=== PATIENT | male | born 1955 | race African-American/Black ===

== ENCOUNTER 2017-04-29 19:07 | Emergency (ER) | END 2017-04-29 22:35 | disposition home or self-care (01) | DX: K92.2 Gastrointestinal hemorrhage, unspecified (principal); F10.10 Alcohol abuse, uncomplicated; F17.210 Nicotine dependence, cigarettes, uncomplicated | CPT/HCPCS: 36415; 80053; 81001; 83690; 84484; 85025; 96374; 96375; J2270; J2405; J7030; Z7502; Z7610 ==

== ENCOUNTER 2017-06-25 05:21 | Inpatient (IN) | payer OTHER ==
[~2017-06-25] VITALS: Ht 175.3 cm; Wt 68.0 kg
[2017-06-25] VITALS (11 sets, daily range): BP systolic 138–170; BP diastolic 74–101; PULSE 69–122; RESP 18–19; TEMP 98.3; Ht 175.3 cm; Wt 68.0 kg
[~2017-06-25 05:21] MED LIST: GABA100C14 PO; OMEP20CA16 PO
[2017-06-25] MEDS ORDERED: niCARdipine-NS 0.1MG/ML DRIP 200 ML IV SCH (06:00)
[2017-06-25] MEDS ORDERED: LEVALBUTEROL (NEB) 1.25 MG/0.5 ML AMP HHN ONE (06:00)
[2017-06-25] MEDS ORDERED: IPRATROPIUM (NEB) 0.5 MG/2.5 ML AMP HHN ONE (06:00)
[2017-06-25 06:12] LABS: ABNORMAL IP MESSAGE 1; BASOPHIL # 0.1 10^3/ul (0.0-0.1); BASOPHILS % 0.4 % (0.0-2.0); EOSINOPHILS # 0.1 10^3/ul (0.0-0.5); EOSINOPHILS % 1.1 % (0.0-7.0); HEMOGLOBIN 7.7 g/dl (14.0-18.0); LYMPHOCYTES # 3.9 10^3/ul (0.8-2.9); LYMPHOCYTES % 30.3 % (15.0-51.0); MEAN CORPUSCULAR HEMOGLOBIN 21.5 pg (29.0-33.0); MEAN CORPUSCULAR HGB CONC 28.5 g/dl (32.0-37.0); MEAN CORPUSCULAR VOLUME 75.4 fl (82.0-101.0); MEAN PLATELET VOLUME 9.7 fl (7.4-10.4); MONOCYTE # 1.3 10^3/ul (0.3-0.9); NEUTROPHIL # 7.4 10^3/ul (1.6-7.5); NEUTROPHILS % 57.5 % (39.0-77.0); PLATELET COUNT 455 10^3/UL (140-415); POSITIVE DIFF @See below; RED BLOOD COUNT 3.58 10^6/ul (4.70-6.10); RED CELL DISTRIBUTION WIDTH 21.6 % (11.5-14.5); WHITE BLOOD COUNT 12.8 10^3/ul (4.8-10.8)
[2017-06-25] MEDS ORDERED: FUROSEMIDE 40 MG INJ ONE (06:12)
[2017-06-25] MEDS ORDERED: FUROSEMIDE 40 MG INJ IV STA (06:12)
[2017-06-25] MEDS ORDERED: NITROGLYCERIN 50 MG/D5W (PMX) 250 ML IV STA (06:12)
[2017-06-25] MEDS ORDERED: NITROGLYCERIN 50 MG/D5W (PMX) 250 ML ONE (06:12)
[2017-06-25 06:24] LABS: INR 1.17; PT RATIO 1.2
[2017-06-25 06:25] LABS: PARTIAL THROMBOPLASTIN TIME 36.1 Sec (25.0-35.0)
[2017-06-25 06:26] LABS: ALBUMIN 3.2 g/dl (3.3-4.9); ALBUMIN/GLOBULIN RATIO 0.8; CALCIUM 8.5 mg/dl (8.4-10.2); CREATININE 1.02 mg/dl (0.61-1.24); POTASSIUM 3.8 mmol/L (3.5-5.1); TOTAL PROTEIN 7.2 g/dl (6.1-8.1)
[2017-06-25 06:37] LABS: TROPONIN-I 0.065 ng/ml (0.00-0.12)
[2017-06-25 06:40] LABS: AADO2 Arterial 453.1 mmHg (7.0-24.0); Allen Test ACCEPTAB; Arterial Base Excess -7.6 mmol/L (-3.0-3); Arterial COHb 1.5 % (0.0-3.0); Arterial Fraction of Oxyhgb 97.4 % (93.0-99.0); Arterial HCO3 19.2 mmol/L (22.0-26.0); Arterial MetHb 0.5 % (0.0-1.5); Arterial Total Hemglobin 8.6 g/dl (12.0-18.0); Blood Gas IEPAP 20/8; Blood Gas PS 12; MODE MASK - BIPAP
[2017-06-25] MEDS ORDERED: SOD CHLORIDE 0.9% 250 ML IV ONE (06:50)
--- NOTE | 2017-06-25 06:56 | RADRPT ---
PROCEDURE: Chest. CLINICAL INDICATION: Chest pain. TECHNIQUE: Single frontal view of the chest was obtained. COMPARISON: 04/27/2016. FINDINGS: The cardiac silhouette is enlarged. The aortic arch is calcified. There are hazy and patchy opaciti es bilaterally. There is a small left pleural effusion. There is no pneumothorax. IMPRESSION: Bilateral hazy and patchy opacities could represent pulmonary edema and/or multifocal pneumonia. Moderate cardiomegaly and aortic atherosclerosis. Small left-sided pleural effusion. .Tommie Holly MD, MD Date Time Electronically viewed and signed by .Tommie Holly MD, MD on 06/25/2017 06:55 .T/
[2017-06-25] MEDS ORDERED: ASPIRIN 81 MG TAB PO ONE (07:00)
--- NOTE | 2017-06-25 08:09 | ERA ---
ER Documentation Chief Complaint Date/Time DATE: 06/25/17 TIME: 08:09 Chief Complaint bib ra 90 from home for cp and sob x 3 days HPI Patient is a 62-year-old male with COPD who presents with shortness of breath. Please note the history and physical exam is limited secondary to the patient's severe shortness of breath at this time and being on BiPAP therapy. The patient was brought in by ambulance. He had a low oxygen saturation and extremely high blood pressure with a systolic blood pressure of 270. He was short of breath and diaphoretic. He had bilateral lower extremity edema. This is gotten worse over the past 3 days. Upon review of old medical records this is the patient's third visit since 2016. ROS All systems reviewed and are negative except as per history of present illness. Medications Home Meds Active Scripts Omeprazole* (Omeprazole*) 20 Mg Capsule.dr, 20 MG PO BID, #20 Prov:TJ ALEXANDER DO 04/29/17 Reported Medications Gabapentin* (Gabapentin*) 100 Mg Capsule, 200 MG PO NEEDED, #180 CAP 04/29/17 Allergies Allergies: Coded Allergies: No Known Allergy (Unverified , 04/29/17) PMhx/Soc History of Surgery: No Anesthesia Reaction: No Hx Neurological Disorder: Yes (epilepsy - last incident 2013, peripheral neuropathy) Hx Respiratory Disorders: No Hx Cardiac Disorders: No Hx Psychiatric Problems: Yes (mild depression) Hx Miscellaneous Medical Probl: No Hx Alcohol Use: Yes (beer - 12 cans/day) Hx Substance Use: Yes (QUIT IN 1999) Hx Tobacco Use: Yes (1 pack per day) Smoking Status: Current every day smoker FmHx Unable to obtain Physical Exam Vitals Vital Signs Date Time Temp Pulse Resp B/P Pulse Ox O2 Delivery O2 Flow Rate FiO2 06/25/17 07:41 91 100 60 06/25/17 07:21 98.3 89 18 165/92 100 BIPAP 06/25/17 06:19 98.6 120 33 226/118 100 BIPAP 06/25/17 06:15 121 100 100 06/25/17 06:04 96.8 124 34 178/134 100 BIPAP 06/25/17 05:49 96.8 123 29 259/151 83 06/25/17 05:30 126 100 100 Physical Exam Const: Severe distress Head: Atraumatic Eyes: Normal Conjunctiva ENT: Normal External Ears, Nose and Mouth. Neck: Full range of motion..~ No meningismus. Resp: Decreased breath sounds bilaterally Cardio: Tachycardic rate without murmur Abd: Soft, non tender, non distended. Normal bowel sounds Skin: Diaphoresis Back: No midline or flank tenderness Ext: No cyanosis, or edema Neur: Awake but confused and distressed at this time Result Diagram: 06/25/17 0549 06/25/17 0549 Results 24 hrs Laboratory Tests Test 06/25/17 05:27 06/25/17 05:32 06/25/17 05:41 06/25/17 05:49 Blood Gas Specimen Source Blood arterial Arterial Blood Date Drawn 06/25/2017 6:30:47 AM Arterial Blood pH (Temp corrected) 7.248 Arterial Blood pCO2 (Temp correct) 45.0mmhg Arterial Blood pO2 (Temp corrected) 214.9mmHG Arterial Blood HCO3 19.2mmol/L Arterial Blood Base Excess -7.6mmol/L Arterial Blood Oxygen Saturation 99.4mmHG Jamir Test ACCEPTAB Arterial Blood Gas Puncture Site Right Radial Arterial Blood Carboxyhemoglobin 1.5% Arterial Blood Methemoglobin 0.5% Blood Gas A-a O2 Differential 453.1mmHg Oxyhemoglobin Percent 97.4% Total Hemoglobin 8.6g/dl Blood Gas Temperature 37.0C Blood Gas Respiration Rate 20.0 Blood Gas Actual Respiration Rate 33 Blood Gas Modality MASK - BIPAP FiO2 100.0% Blood Gas Inspiratory Time 0.60 Blood Gas Pressure Support 12 Blood Gas IPAP/EPAP Ratio 20/8 Blood Gas Critical Value Read Back DR. CAMPOS Blood Gas Notified Whom Jaswinder Blood Gas Notified Time 06/25/2017 6:39:53 AM Ethyl Alcohol Level < 10.0mg/dl Lactic Acid Level 7.1mmol/L White Blood Count 12.810^3/ul Red Blood Count 3.5810^6/ul Hemoglobin 7.7g/dl Hematocrit 27.0% Mean Corpuscular Volume 75.4fl Mean Corpuscular Hemoglobin 21.5pg Mean Corpuscular Hemoglobin Concent 28.5g/dl Red Cell Distribution Width 21.6% Platelet Count 42637^3/UL Mean Platelet Volume 9.7fl Neutrophils % 57.5% Lymphocytes % 30.3% Monocytes % 10.0% Eosinophils % 1.1% Basophils % 0.4% Nucleated Red Blood Cells % 0.0/100WBC Neutrophils # 7.410^3/ul Lymphocytes # 3.910^3/ul Monocytes # 1.310^3/ul Eosinophils # 0.110^3/ul Basophils # 0.110^3/ul Nucleated Red Blood Cells # 0.010^3/ul Prothrombin Time 15.0Sec Prothrombin Time Ratio 1.2 INR International Normalized Ratio 1.17 Activated Partial Thromboplast Time 36.1Sec Sodium Level 141mmol/L Potassium Level 3.8mmol/L Chloride Level 108mmol/L Carbon Dioxide Level 19mmol/L Anion Gap 18 Blood Urea Nitrogen 2mg/dl Creatinine 1.02mg/dl Glucose Level 168mg/dl Calcium Level 8.5mg/dl Total Bilirubin 0.0mg/dl Direct Bilirubin 0.00mg/dl Indirect Bilirubin 0.0mg/dl Aspartate Amino Transf (AST/SGOT) 64IU/L Alanine Aminotransferase (ALT/SGPT) 26IU/L Alkaline Phosphatase 175IU/L Troponin I 0.065ng/ml Total Protein 7.2g/dl Albumin 3.2g/dl Globulin 4.00g/dl Albumin/Globulin Ratio 0.80 Current Medications Medications (Trade) Dose Ordered Sig/Renee Route PRN Reason Start Time Stop Time Status Last Admin Dose Admin Levalbuterol (Xopenex Neb) 1.25 mg ONCE ONCE [facility] 06/25/17 06:00 06/25/17 06:01 DC 06/25/17 05:55 Ipratropium Turner 0.5 mg 0.5 mg ONCE ONCE [facility] 06/25/17 06:00 06/25/17 06:01 DC 06/25/17 05:55 Nicardipine HCl 200 ml @ 50 mls/hr TITRATE IV 06/25/17 06:00 06/25/17 06:14 DC Nitroglycerin/ Dextrose (Nitroglycerin 50 Mg/D5W (Pmx)) 250 ml @ 6 mls/hr ONCE STAT IV 06/25/17 06:12 06/26/17 23:51 06/25/17 06:21 Furosemide 40 mg 40 mg ONCE STAT IV 06/25/17 06:12 06/25/17 06:13 DC 06/25/17 06:22 Nitroglycerin/ Dextrose (Nitroglycerin 50 Mg/D5W (Pmx)) 250 ml @ ud STK-MED ONCE .ROUTE 06/25/17 06:12 06/25/17 06:13 DC Furosemide (Lasix) 40 mg STK-MED ONCE .ROUTE 06/25/17 06:12 06/25/17 06:13 DC Aspirin 162 mg 162 mg ONCE ONCE PO 06/25/17 07:00 06/25/17 07:01 DC Sodium Chloride (NS) 250 ml @ 0 mls/hr Q0M ONCE IV 06/25/17 06:50 06/25/17 06:52 DC Procedures/MDM EKG read by me: Rate/Rhythm: Sinus arrhythmia with tachycardia Intervals: Normal Impression: Sinus arrhythmia with tachycardia and flipped T waves Chest X-ray 1V Interpreted by me: Soft Tissue: No acute abnormalities Bones: No acute abnormalities Mediastinum/Cardiac Silhouette/Lungs: Pulmonary edema versus ARDS Patient is a 62-year-old male who presents in acute respiratory failure. The patient was placed on BiPAP immediately upon arrival but was not doing well and I did consider intubation. He was initially on a Cardene drip for his blood pressure but I did stop the Cardene drip and ordered a nitroglycerin drip and Lasix IV as I felt this was acute congestive heart failure with pulmonary edema. At this point I doubt pneumonia, pneumothorax, or pulmonary embolism. There is a potential for acute coronary syndrome and the patient was given aspirin. The patient improved with BiPAP therapy, nitroglycerin drip, and Lasix. We were able to avoid intubation but he is still very sick. I spoke with Dr. Penn as the patient has regal insurance for admission to the intensive care unit. We will attempt to wean off the nitro drip and BiPAP therapy and if this can be done the patient will be downgraded to telemetry. The patient has an elevated lactic acid of 7.1 which I believe is from hypoxia and poor perfusion and not related to sepsis or septic shock. The patient has acute anemia with a hemoglobin of 7.7 and initially I ordered 2 units of packed red blood cells but Dr. Penn asked me to hold off given the pulmonary edema which I think is reasonable at this time. Critical Care: Time: 35 minutes excluding all billable procedures. Treatments/Evaluations: Close monitoring and treatment of unstable vital signs, cardiorespiratory, and neurologic status, while maintaining tight balance of fluid, respiratory, and cardiac interventions. Departure Diagnosis: Primary Impression: Hypoxia Additional Impressions: Shortness of breath Respiratory failure Qualified Code: J96.01 - Acute respiratory failure with hypoxia Acute CHF Qualified Code: I50.9 - Acute congestive heart failure, unspecified congestive heart failure type Hypertension Qualified Code: I10 - Essential hypertension Lactic acidosis Condition: Critical STNOEY CAMPOS MD Jun 25, 2017 08:09
[2017-06-25] MEDS ORDERED: NITROGLYCERIN 2% 1 GM OINT PKT TD STA (08:25)
[2017-06-25] MEDS ORDERED: DOCUSATE SODIUM 100 MG CAP PO PRN (09:30)
[2017-06-25] MEDS ORDERED: ONDANSETRON 4 MG INJ IV PRN (09:30)
[2017-06-25] MEDS ORDERED: BISACODYL 10 MG SUPP PR PRN (09:30)
[2017-06-25] MEDS ORDERED: MAGNESIUM HYDROXIDE 30ML CUP PO PRN (09:30)
[2017-06-25] MEDS ORDERED: HYDROCODONE/APAP (5/325) TAB PO PRN (09:30)
[2017-06-25] MEDS ORDERED: NACL 0.9% 3 ML SYG IV SCH (09:30)
[2017-06-25] MEDS ORDERED: LABETALOL HCL 20MG INJ IV ONE (10:30)
[2017-06-25] MEDS: METOPROLOL 25 MG TAB PO SCH ×2 (10:50→23:41)
[2017-06-25] MEDS: ISOSORBIDE DINITRATE 10 MG TAB PO SCH ×3 (10:50→23:41)
[2017-06-25] MEDS: PANTOPRAZOLE (EC) 40 MG TAB PO SCH ×2 (10:52→17:20)
[2017-06-25] MEDS: SUCRALFATE 1 GM TAB PO SCH ×3 (12:32→23:41)
[2017-06-25 12:52] LABS: ABNORMAL IP MESSAGE 1; BASOPHILS % 0.1 % (0.0-2.0); HEMATOCRIT 22.6 % (42.0-52.0); LYMPHOCYTES # 0.7 10^3/ul (0.8-2.9); LYMPHOCYTES % 4.8 % (15.0-51.0); MEAN CORPUSCULAR HEMOGLOBIN 21.3 pg (29.0-33.0); MEAN CORPUSCULAR HGB CONC 30.1 g/dl (32.0-37.0); MEAN CORPUSCULAR VOLUME 70.8 fl (82.0-101.0); MEAN PLATELET VOLUME 9.4 fl (7.4-10.4); MONOCYTES % 6.7 % (0.0-11.0); NEUTROPHIL # 12.9 10^3/ul (1.6-7.5); NEUTROPHILS % 87.9 % (39.0-77.0); PLATELET COUNT 379 10^3/UL (140-415); POSITIVE DIFF @See below; RED BLOOD COUNT 3.19 10^6/ul (4.70-6.10); RED CELL DISTRIBUTION WIDTH 21.1 % (11.5-14.5); WHITE BLOOD COUNT 14.7 10^3/ul (4.8-10.8)
[2017-06-25 13:11] LABS: TROPONIN-I 0.092 ng/ml (0.00-0.12)
[2017-06-25 13:12] LABS: CK-MB 0.68 ng/ml (0.0-2.4); HEMOGLOBIN 6.8 g/dl (14.0-18.0)
[2017-06-25 13:13] LABS: PATH REVIEW? YES
[2017-06-25] MEDS: hydrALAzine 20 MG INJ IV PRN (13:40)
--- NOTE | 2017-06-25 13:49 | HP ---
Date/Time of Note Date/Time of Note DATE: 06/25/17 TIME: 12:05 Assessment/Plan VTE Prophylaxis VTE Prophylaxis Intervention: SCD's Lines/Catheters Urinary Cath still in place: No Assessment/Plan Assessment/Plan 62-year-old male with: 1. Pulmonary edema, CHF exacerbation with respiratory distress, echocardiogram pending to evaluate ejection fraction. Patient received Lasix with improved respiratory status. Trend cardiac enzymes, check BNP, continue diuresis. Repeat chest x-ray in a.m. Original EKG showing sinus tachycardia with PACs, on telemetry currently sinus rhythm after treatment of hypertension and respiratory distress. 2. Microcytic chronic anemia, acute exacerbation, questionable ongoing slow GI bleed or intermittent upper GI bleed versus lower GI bleed. Patient did have 2 EGDs done few months ago with findings of gastritis for which she has been treated as he was H pylori positive. He was also advised to stop alcohol use but that he has not done so so far. Hemoglobin down to 6.9. Transfuse 2 units of packed red blood cells, will also check fecal occult blood illness the patient is having gross bleeding. Repeat CBC in a.m. Protonix treatment dose 40 mg p.o. twice daily along with Carafate for known gastritis and gastric ulcers 3. Hypertension: Uncontrolled and untreated. Patient has been started on beta- blockers along with Isordil. Follow-up 2D echocardiogram. 4. Reported seizure disorder: Monitor, patient has been off medication for 2 years. 5. Tobacco use: We will offer nicotine patch, he has been advised to quit 6. Alcohol abuse: Counseled to quit, patient denies any history of alcohol withdrawal, he claims that he can go days without drinking. Will monitor closely, Ativan as needed. If shows signs of alcohol withdrawal we will start him on Librium. We will also have him on multivitamin, folate and thiamine. 7. Gastritis, gastric ulcers on previous EGD: Continue Protonix and Carafate. Prophylaxis: SCDs to lower extremity for DVT prophylaxis, Protonix known gastritis Disposition: Admit to telemetry, blood pressure control, diuresis, blood transfusion, rule out acute coronary syndrome, 2D echocardiogram. HPI/ROS Admit Date/Time Admit Date/Time Jun 25, 2017 at 07:38 Hx of Present Illness Chief complaint: Shortness of breath History of presenting illness: This is 62-year-old male with history of alcohol use, tobacco use, previous episode of upper GI bleeding related to alcohol use and gastritis, known chronic anemia, presented to the emergency department with complaint of shortness of breath worsening over the past 2 months. Patient reports that he has been seen in this emergency department approximately 2 months ago for reported bright red blood per rectum, hemoglobin was stable, he was still drinking heavily he was advised to decrease his alcohol consumption and follow-up. Since then he has not seen any physician. He reports that around the same time he started having shortness of breath, mostly dyspnea on exertion, decreased exercise tolerance, some orthopnea, he has remained hypertensive. Patient does have hypertension, untreated, noncompliant with medical follow-up. He claims that he did not take any medications because they were not prescribed but does not seem like he even seek medical assistance. 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 His blood pressure improve over a few hours along with his respiratory status. He is down to 4 L nasal cannula with better control of blood pressure, off nitro drip with Nitropaste in place. He does have anemia, hemoglobin was 7.7 in the emergency department, repeat hemoglobin is 6.9, he will be receiving 2 units of packed red blood cells, will hold off of aspirin. Resume Carafate and Protonix. Continue to monitor. If further drop of his hemoglobin GI will be consulted for repeat endoscopy. Patient does have known gastritis and ulcerations. He was treated for H pylori on his last admission in 2016 according to the notes and discharge summaries. ROS Constitutional: improved Respiratory: other (Dyspnea on exertion and orthopnea), shortness of breath Cardiovascular: edema (Bilateral lower extremities), orthopenea, paroxysmal nocturnal dyspnea Gastrointestinal: no complaints Genitourinary: no complaints Musculoskeletal: no complaints Skin: no complaints Neurologic: no complaints Endocrine: no complaints Psychological: no complaints PMH/Family/Social Past Medical History Previously diagnosed gastritis, gastric ulcers and H pylori gastritis, status post 2 EGDs in April 2016 Hypertension, uncontrolled and untreated Chronic anemia Reported seizure disorder but no medications for the past 2 years and no seizures Past Surgical History Status post EGD [address] Salazar, here at [facility] Past Surgical Hx: no surgical history Social History Alcohol Use: other (2-5 beers a day, last beer was yesterday since age 21 at least) Smoking Status: Current every day smoker (1/2 pack per day for the past 40 yrs at least ) Drug Use: cocaine (remote use ) Exam/Review of Systems Vital Signs Vitals Vital Signs Date Time Temp Pulse Resp B/P Pulse Ox O2 Delivery O2 Flow Rate FiO2 06/25/17 12:03 97.3 70 18 170/101 96 06/25/17 10:58 Nasal Cannula 4.0 06/25/17 07:41 60 Exam Constitutional: alert, oriented, well developed Respiratory: diminished breath sounds (bases bilaterally ), normal air movement Cardiovascular: nl pulses, regular rate and rhythm Gastrointestinal: non-tender, soft Musculoskeletal: swelling (bilateral LE ) Extremities: edema (+ 2 lower ext bilaterally ), normal pulses, other (no clubbing or cyanosis ) Neurological: VERIFICATION REP II-XII intact, nl mental status, nl speech, nl strength, other (but decreased exercise tolerance ) Labs Result Diagram: 06/25/1749 06/25/17 0549 Medications Medications Current Medications Sucralfate (Carafate) 1 gm Q6 PO ; Start 06/25/17 at 12:00 Pantoprazole (Protonix Tab) 40 mg BID@06,18 PO Last administered on 06/25/17t 10:52; Admin Dose 40 MG; Start 06/25/17 at 09:30 Ondansetron HCl (Zofran Inj) 4 mg Q6H PRN IV NAUSEA AND/OR VOMITING; Start at 09:30 Nitroglycerin (Nitroglycerin (Sl Tab) 0.4 Mg) 1 tab Q5M PRN SL CHEST PAIN; Start 06/25/17 at 09:30 Acetaminophen (Tylenol Tab) 650 mg Q6H PRN PO PAIN LEVEL 1-3 OR FEVER; Start 06/25/17 at 09:30 Acetaminophen/ Hydrocodone Bitart ([place] (5/325)) 1 tab Q6H PRN PO PAIN LEVEL 4 -6; Start 06/25/17 at 09:30 Morphine Sulfate (morphine) 2 mg Q4H PRN IV PAIN LEVEL 7-10; Start 06/25/17 at 09:30 Docusate Sodium (Colace) 100 mg Q12H PRN PO CONSTIPATION; Start 06/25/17 at 09 :30 Magnesium Hydroxide (Milk Of Mag) 30 ml DAILY PRN PO CONSTIPATION; Start 06/25 at 09:30 Bisacodyl (Dulcolax Supp) [address] CONSTIPATION; Start 06/25/17 at 09:30 Metoprolol Tartrate (Lopressor) 25 mg BID PO Last administered on 06/25/17 10 :50; Admin Dose 25 MG; Start 06/25/17 at 09:30 Isosorbide Dinitrate (Isordil) 10 mg TID PO Last administered on 06/25/17 10: 50; Admin Dose 10 MG; Start 06/25/17 at 09:30 Hydralazine HCl (Apresoline) 10 mg Q8 PRN IV ELEVATED BLOOD PRESSURE; Start at 12:00 Procedures Procedures PROCEDURE: Chest. CLINICAL INDICATION: Chest pain. TECHNIQUE: Single frontal view of the chest was obtained. COMPARISON: 04/27/2016. FINDINGS: The cardiac silhouette is enlarged. The aortic arch is calcified. There are hazy and patchy opacities bilaterally. There is a small left pleural effusion. There is no pneumothorax. IMPRESSION: Bilateral hazy and patchy opacities could represent pulmonary edema and/or multifocal pneumonia. Moderate cardiomegaly and aortic atherosclerosis. Small left-sided pleural effusion. .Tommie Holly MD, Date Time Electronically viewed and signed by .Tommie Holly MD, MD on 06/25/2017 06:55 EKG on admission with sinus tachycardia heart rate of 123 with PACs, no acute findings. ASHISH US Jun 25, 2017 12:15
[2017-06-25] MEDS: FOLIC ACID 1 MG TAB PO SCH (14:05)
[2017-06-25] MEDS: MULTIVITAMINS THERAPEUTIC TAB PO SCH (14:05)
[2017-06-25 15:29] LABS: IRON 23 ug/dl (35-150)
[2017-06-25 15:39] LABS: TOTAL IRON BINDING CAPACITY 308 ug/dl (241-421)
[2017-06-25] MEDS: FUROSEMIDE 40 MG INJ IV SCH (17:20)
[2017-06-25] MEDS: NICOTINE (14 MG/24 HR) PATCH TRANSDERM SCH (17:20)
[2017-06-25] MEDS: THIAMINE 100 MG TAB PO SCH (17:58)
[2017-06-25 18:54] LABS: CK-MB 0.52 ng/ml (0.0-2.4); TROPONIN-I 0.144 ng/ml (0.00-0.12)
[2017-06-26] VITALS (13 sets, daily range): BP systolic 115–170; BP diastolic 73–93; PULSE 68–81; RESP 16–21
[2017-06-26] MEDS: hydrALAzine 20 MG INJ IV PRN ×2 (01:00→21:18)
[2017-06-26] MEDS: NITROGLYCERIN (SL) 0.4 MG TAB SL PRN ×3 (01:19→01:35)
[2017-06-26 01:55] LABS: CK-MB 0.39 ng/ml (0.0-2.4)
[2017-06-26 01:56] LABS: TROPONIN-I 0.168 ng/ml (0.00-0.12)
[2017-06-26] MEDS: FUROSEMIDE 40 MG INJ IV SCH ×2 (05:27→17:12)
[2017-06-26] MEDS: PANTOPRAZOLE (EC) 40 MG TAB PO SCH ×2 (05:28→17:12)
[2017-06-26] MEDS: SUCRALFATE 1 GM TAB PO SCH ×3 (05:28→17:12)
[2017-06-26 08:20] LABS: ABNORMAL IP MESSAGE 1; BASOPHILS % 0.2 % (0.0-2.0); EOSINOPHILS # 0.1 10^3/ul (0.0-0.5); EOSINOPHILS % 0.9 % (0.0-7.0); HEMATOCRIT 26.6 % (42.0-52.0); HEMOGLOBIN 8.2 g/dl (14.0-18.0); LYMPHOCYTES # 1.7 10^3/ul (0.8-2.9); LYMPHOCYTES % 16.2 % (15.0-51.0); MEAN CORPUSCULAR HEMOGLOBIN 22.5 pg (29.0-33.0); MEAN CORPUSCULAR HGB CONC 30.8 g/dl (32.0-37.0); MEAN CORPUSCULAR VOLUME 73.1 fl (82.0-101.0); MEAN PLATELET VOLUME 9.7 fl (7.4-10.4); MONOCYTE # 1.2 10^3/ul (0.3-0.9); MONOCYTES % 11.4 % (0.0-11.0); NEUTROPHIL # 7.3 10^3/ul (1.6-7.5); NEUTROPHILS % 70.6 % (39.0-77.0); PLATELET COUNT 333 10^3/UL (140-415); POSITIVE DIFF @See below; RED BLOOD COUNT 3.64 10^6/ul (4.70-6.10); RED CELL DISTRIBUTION WIDTH 23.6 % (11.5-14.5); WHITE BLOOD COUNT 10.3 10^3/ul (4.8-10.8)
--- NOTE | 2017-06-26 08:28 | PN ---
Date/Time of Note Date/Time of Note DATE: 06/26/17 TIME: 08:28 Assessment/Plan VTE Prophylaxis VTE Prophylaxis Intervention: SCD's Lines/Catheters IV [facility]ter [facility]from [facility] Urinary Cath still in place: No Assessment/Plan Assessment/Plan 62-year-old male with: 1. Pulmonary edema, CHF exacerbation with respiratory distress, echocardiogram pending to evaluate ejection fraction with cardiomyopathy. Improved respiratory status this morning Continue diuresis with Lasix. Slightly elevated cardiac enzymes, keep trending. BNP, continue diuresis. Repeat chest x-ray in a.m. Repeat EKG pending this morning along with 2D echocardiogram results. 2. Slightly elevated troponins, in setting of anemia, CHF exacerbation. Patient also had an episode of nonsustained V. tach 3 beats overnight. Follow- up on chemistry replete electrolytes as needed. EKG this morning pain. 2D echocardiogram to be read by cardiology. Cardiology consulted. Continue trending cardiac enzymes. 3. Microcytic chronic anemia, acute exacerbation, questionable ongoing slow GI bleed or intermittent upper GI bleed versus lower GI bleed. Patient did have 2 EGDs done few months ago with findings of gastritis for which he has been treated as he was H pylori positive. He was also advised to stop alcohol use but that he has not done so so far. Hemoglobin up to 8.2 after transfusion of 2 units packed red blood cell yesterday Hematochezia noted. Repeat H&H at 12 PM today with possible additional transfusion Continue Protonix treatment dose 40 mg p.o. twice daily along with Carafate for known gastritis and gastric ulcers GI consult 4. Hypertension: Uncontrolled and untreated. Patient has been started on beta- blockers along with Isordil. Follow-up 2D echocardiogram results 5. Reported seizure disorder: Monitor, patient has been off medication for 2 years. No seizures 6. Tobacco use: We will offer nicotine patch, he has been advised to quit 7. Alcohol abuse: Counseled to quit, patient denies any history of alcohol withdrawal, he claims that he can go days without drinking. Will monitor closely, Ativan as needed. If shows signs of alcohol withdrawal we will start him on Librium. On multivitamin, folate and thiamine. 8. Gastritis, gastric ulcers on previous EGD: Continue Protonix and Carafate. GI consult Prophylaxis: SCDs to lower extremity for DVT prophylaxis, Protonix known gastritis Disposition: Continue to monitor on telemetry, given positive troponins, patient to remain at [facility] with cardiology to evaluate. Blood pressure control, diuresis, blood transfusion. Subjective 24 Hr Interval Summary Free Text/Dictation Patient noted to have an episode of chest pain overnight, relieved with nitroglycerin 2. Also had 3 beats of V. tach. EKG pending this morning. Troponin slightly positive overnight. Status post 2 units of packed red blood cells with a hemoglobin up to 8.2. 2D echocardiogram pending. Cardiology consult ordered. Exam/Review of Systems Vital Signs Vitals Vital Signs Date Time Temp Pulse Resp B/P Pulse Ox O2 Delivery O2 Flow Rate FiO2 06/26/17 08:00 81 06/26/17 07:53 98.8 21 146/73 95 06/26/17 07:41 Nasal Cannula 2.0 06/25/17 07:41 60 Intake and Output 06/25/17 06/25/17 06/26/17 15:00 23:00 07:00 Intake Total 400 ml 750 ml Output Total 2000 ml 800 ml 550 ml Balance -2000 ml -400 ml 200 ml Exam Constitutional: alert, oriented, well developed Psych: no complaints Head: normocephalic ENMT: other (Poor dentition) Respiratory: diminished breath sounds (Bases bilaterally much improved), normal air movement Cardiovascular: nl pulses, regular rate and rhythm Gastrointestinal: non-tender, soft Musculoskeletal: nl extremities to inspection Extremities: normal pulses, other (No edema, clubbing or cyanosis) Neurological: DIABETES MANAGER II-XII intact, nl mental status, nl speech, nl strength Results Result Diagram: 06/26/17 0756 06/25/17 0549 Results 24 hrs Laboratory Tests Test 06/25/17 09:21 06/25/17 12:08 06/25/17 14:37 06/25/17 18:09 Lactic Acid Level 2.0 1.3 White Blood Count 14.7 H Red Blood Count 3.19 L Hemoglobin 6.8 *L Hematocrit 22.6 L Mean Corpuscular Volume 70.8 L Mean Corpuscular Hemoglobin 21.3 L Mean Corpuscular Hemoglobin Concent 30.1 L Red Cell Distribution Width 21.1 H Platelet Count 379 Mean Platelet Volume 9.4 Neutrophils % 87.9 H Lymphocytes % 4.8 L Monocytes % 6.7 Eosinophils % 0.0 Basophils % 0.1 Nucleated Red Blood Cells % 0.0 Neutrophils # 12.9 H Lymphocytes # 0.7 L Monocytes # 1.0 H Eosinophils # 0.0 Basophils # 0.0 Nucleated Red Blood Cells # 0.0 Pathologist Review (Hematology) YES Creatine Kinase 55 51 Creatine Kinase Index 1.2 1.0 Creatinine Kinase MB (Mass) 0.68 0.52 Troponin I 0.092 0.144 *H Iron Level 23 L Total Iron Binding Capacity 308 Percent Iron Saturation 7 L Ferritin 21.5 Thyroid Stimulating Hormone (TSH) 2.080 Free Thyroxine 1.55 Test 06/26/17 00:35 06/26/17 06:27 06/26/17 07:56 Creatine Kinase 46 Creatine Kinase Index 0.8 Creatinine Kinase MB (Mass) 0.39 Troponin I 0.168 *H Lab Scanned Report BLOOD TRANSFUSION White Blood Count 10.3 # Red Blood Count 3.64 L Hemoglobin 8.2 #L Hematocrit 26.6 L Mean Corpuscular Volume 73.1 L Mean Corpuscular Hemoglobin 22.5 L Mean Corpuscular Hemoglobin Concent 30.8 L Red Cell Distribution Width 23.6 H Platelet Count 333 Mean Platelet Volume 9.7 Neutrophils % 70.6 Lymphocytes % 16.2 Monocytes % 11.4 H Eosinophils % 0.9 Basophils % 0.2 Nucleated Red Blood Cells % 0.0 Neutrophils # 7.3 Lymphocytes # 1.7 Monocytes # 1.2 H Eosinophils # 0.1 Basophils # 0.0 Nucleated Red Blood Cells # 0.0 Medications Medications Current Medications Sucralfate (Carafate) 1 gm Q6 PO Last administered on 06/26/17 05:28; Admin Dose 1 GM; Start 06/25/17 at 12:00 Pantoprazole (Protonix Tab) 40 mg BID@06,18 PO Last administered on 06/26/17 05:28; Admin Dose 40 MG; Start 06/25/17 at 09:30 Ondansetron HCl (Zofran Inj) 4 mg Q6H PRN IV NAUSEA AND/OR VOMITING; Start at 09:30 Nitroglycerin (Nitroglycerin (Sl Tab) 0.4 Mg) 1 tab Q5M PRN SL CHEST PAIN Last administered on 06/26/17 01:35; Admin Dose 1 TAB; Start 06/25/17 at 09:30 Acetaminophen (Tylenol Tab) 650 mg Q6H PRN PO PAIN LEVEL 1-3 OR FEVER; Start 06/25/17 at 09:30 Acetaminophen/ Hydrocodone Bitart ([place] (5/325)) 1 tab Q6H PRN PO PAIN LEVEL 4 -6 Last administered on 06/26/17 05:07; Admin Dose 1 TAB; Start 06/25/17 at 09:30 Morphine Sulfate (morphine) 2 mg Q4H PRN IV PAIN LEVEL 7-10; Start 06/25/17 at 09:30 Docusate Sodium (Colace) 100 mg Q12H PRN PO CONSTIPATION; Start 06/25/17 at 09 :30 Magnesium Hydroxide (Milk Of Mag) 30 ml DAILY PRN PO CONSTIPATION; Start 06/25 at 09:30 Bisacodyl (Dulcolax Supp) 10 mg DAILY PRN [place] CONSTIPATION; Start 06/25/17 at 09:30 Metoprolol Tartrate (Lopressor) 25 mg BID PO Last administered on 06/25/17 23 :41; Admin Dose 25 MG; Start 06/25/17 at 09:30 Isosorbide Dinitrate (Isordil) 10 mg TID PO Last administered on 06/25/17 23: 41; Admin Dose 10 MG; Start 06/25/17 at 09:30 Hydralazine HCl (Apresoline) 10 mg Q8 PRN IV ELEVATED BLOOD PRESSURE Last administered on 06/26/17 01:00; Admin Dose 10 MG; Start 06/25/17 at 12:00 Folic Acid (Folic Acid) 1 mg DAILY PO Last administered on 06/25/17 14:05; Admin Dose 1 MG; Start 06/25/17 at 14:00 Multivitamins Therapeutic (Theragran) 1 tab DAILY PO Last administered on 06/25 14:05; Admin Dose 1 TAB; Start 06/25/17 at 14:00 Thiamine HCl (Vitamin B1) 100 mg DAILY PO Last administered on 06/25/17 17:58 ; Admin Dose 100 MG; Start 06/25/17 at 14:00 Lorazepam (Ativan) 1 mg Q6H PRN IV CONTROL WITHDRAWAL SYMPTOMS; Start at 14:00 Nicotine (Nicoderm 14 Mg/ 24hr) 1 patch DAILY TRANSDERM Last administered on 17:20; Admin Dose 1 PATCH; Start 06/25/17 at 14:00 ASHISH US Jun 26, 2017 08:28
[2017-06-26] MEDS: THIAMINE 100 MG TAB PO SCH (09:10)
[2017-06-26] MEDS: ISOSORBIDE DINITRATE 10 MG TAB PO SCH ×3 (09:11→20:14)
[2017-06-26] MEDS: MULTIVITAMINS THERAPEUTIC TAB PO SCH (09:11)
[2017-06-26] MEDS: NICOTINE (14 MG/24 HR) PATCH TRANSDERM SCH (09:11)
[2017-06-26] MEDS: FOLIC ACID 1 MG TAB PO SCH (09:11)
[2017-06-26] MEDS: METOPROLOL 25 MG TAB PO SCH ×2 (09:11→20:14)
[2017-06-26 09:16] LABS: CK-MB 0.34 ng/ml (0.0-2.4)
[2017-06-26 09:17] LABS: TROPONIN-I 0.161 ng/ml (0.00-0.12)
[2017-06-26 09:22] LABS: ALBUMIN 2.8 g/dl (3.3-4.9); ALBUMIN/GLOBULIN RATIO 0.77; BILIRUBIN,INDIRECT 0.4 mg/dl (0-1.1); BILIRUBIN,TOTAL 0.4 mg/dl (0.2-1.3); CALCIUM 8.3 mg/dl (8.4-10.2); CREATININE 1.45 mg/dl (0.61-1.24); MAGNESIUM 1.3 mg/dl (1.7-2.5); POTASSIUM 3.6 mmol/L (3.5-5.1); TOTAL PROTEIN 6.4 g/dl (6.1-8.1)
[2017-06-26] MEDS ORDERED: POTASSIUM CHLORIDE (SR) 20 MEQ TAB PO STA (09:44)
--- NOTE | 2017-06-26 10:02 | CONS ---
Date/Time of Note Date/Time of Note DATE: 06/26/17 TIME: 09:53 Assessment/Plan Assessment/Plan Chief Complaint/Hosp Course 1) CHF systolic and diastolic acute and chronic 2) Alcohol and drug abuse with withdrawal 3) Smoker 4) Noncompliance 5) Marked anemia 6) h/o GIB with suspicion for ongoing GIB 7) HTN urgency 8) Marked EKG changes 9) Troponinincrease Problems: Additional Assessment/Plan 1) Troponinincrease well explained by HTN 2) EKG changes may be due to hypertension urgency 3) Cannot rule out CAD though patient currently not a candidate for antiplatelet therapy or invasive strategy 4) beta blockers 5) Diuresis 6) Echo 7) no FRAN given worsening renal function 8) Will consider to start hydralazine as standing order in conjunction with NTG Consultation Date/Type/Reason Admit Date/Time Jun 25, 2017 at 07:38 Date of Consultation: Jun 26, 2017 Type of Consultation: cv Reason for Consultation CHF Referring Provider: ASHISH US Hx of Present Illness patient admitted with SBP of 270 associated with SOB, no chest pain, and troponin increase. Currently sleepy, arousable, no focal symptoms, remains drowsy Respiratory: other (Dyspnea on exertion and orthopnea), shortness of breath Cardiovascular: edema (Bilateral lower extremities), orthopenea, paroxysmal nocturnal dyspnea Gastrointestinal: no complaints Genitourinary: no complaints Musculoskeletal: no complaints Skin: no complaints Neurologic: no complaints Psychological: no complaints Past Medical History Medical History: hypertension Past Surgical History Past Surgical Hx: no surgical history Family History Significant Family History: hypertension Social History Alcohol Use: other (2-5 beers a day, last beer was yesterday since age 21 at least) Smoking Status: Current every day smoker (1/2 pack per day for the past 40 yrs at least ) Drug Use: cocaine (remote use ) Exam/Review of Systems Vital Signs Vitals Vital Signs Date Time Temp Pulse Resp B/P Pulse Ox O2 Delivery O2 Flow Rate FiO2 06/26/17 08:00 81 06/26/17 07:53 98.8 21 146/73 95 06/26/17 07:41 Nasal Cannula 2.0 06/25/17 07:41 60 Intake and Output 06/25/17 06/25/17 06/26/17 15:00 23:00 07:00 Intake Total 400 ml 750 ml Output Total 2000 ml 800 ml 550 ml Balance -2000 ml -400 ml 200 ml Exam Constitutional: other (drowsy) Head: atraumatic, normocephalic Neck: jvd Respiratory: diminished breath sounds Cardiovascular: regular rate and rhythm Musculoskeletal: nl extremities to inspection Extremities: edema, normal pulses Results Result Diagram: 06/26/17 0756 06/26/17 0756 Results 24 hrs Laboratory Tests Test 06/25/17 12:08 06/25/17 14:37 06/25/17 18:09 06/26/17 00:35 White Blood Count 14.7 H Red Blood Count 3.19 L Hemoglobin 6.8 *L Hematocrit 22.6 L Mean Corpuscular Volume 70.8 L Mean Corpuscular Hemoglobin 21.3 L Mean Corpuscular Hemoglobin Concent 30.1 L Red Cell Distribution Width 21.1 H Platelet Count 379 Mean Platelet Volume 9.4 Neutrophils % 87.9 H Lymphocytes % 4.8 L Monocytes % 6.7 Eosinophils % 0.0 Basophils % 0.1 Nucleated Red Blood Cells % 0.0 Neutrophils # 12.9 H Lymphocytes # 0.7 L Monocytes # 1.0 H Eosinophils # 0.0 Basophils # 0.0 Nucleated Red Blood Cells # 0.0 Pathologist Review (Hematology) YES Lactic Acid Level 1.3 Creatine Kinase 55 51 46 Creatine Kinase Index 1.2 1.0 0.8 Creatinine Kinase MB (Mass) 0.68 0.52 0.39 Troponin I 0.092 0.144 *H 0.168 *H Iron Level 23 L Total Iron Binding Capacity 308 Percent Iron Saturation 7 L Ferritin 21.5 Thyroid Stimulating Hormone (TSH) 2.080 Free Thyroxine 1.55 Test 06/26/17 06:27 06/26/17 07:56 Lab Scanned Report BLOOD TRANSFUSION White Blood Count 10.3 # Red Blood Count 3.64 L Hemoglobin 8.2 #L Hematocrit 26.6 L Mean Corpuscular Volume 73.1 L Mean Corpuscular Hemoglobin 22.5 L Mean Corpuscular Hemoglobin Concent 30.8 L Red Cell Distribution Width 23.6 H Platelet Count 333 Mean Platelet Volume 9.7 Neutrophils % 70.6 Lymphocytes % 16.2 Monocytes % 11.4 H Eosinophils % 0.9 Basophils % 0.2 Nucleated Red Blood Cells % 0.0 Neutrophils # 7.3 Lymphocytes # 1.7 Monocytes # 1.2 H Eosinophils # 0.1 Basophils # 0.0 Nucleated Red Blood Cells # 0.0 Sodium Level 136 Potassium Level 3.6 Chloride Level 102 Carbon Dioxide Level 23 Anion Gap 15 Blood Urea Nitrogen 10 Creatinine 1.45 H Glucose Level 114 # Hemoglobin A1c 5.4 Calcium Level 8.3 L Magnesium Level 1.3 L Total Bilirubin 0.4 Direct Bilirubin 0.00 Indirect Bilirubin 0.4 Aspartate Amino Transf (AST/SGOT) 32 Alanine Aminotransferase (ALT/SGPT) 35 Alkaline Phosphatase 179 H Creatine Kinase 45 Creatine Kinase Index 0.8 Creatinine Kinase MB (Mass) 0.34 Troponin I 0.161 *H Total Protein 6.4 Albumin 2.8 L Globulin 3.60 H Albumin/Globulin Ratio 0.77 Triglycerides Level 67 Cholesterol Level 88 L LDL Cholesterol, Calculated 33 HDL Cholesterol 42 Cholesterol/HDL Ratio 2.0 Imaging Free Text/Dictation EKG: SR, anterior T inversions Medications Medications Current Medications Sucralfate (Carafate) 1 gm Q6 PO Last administered on 06/26/17 05:28; Admin Dose 1 GM; Start 06/25/17 at 12:00 Pantoprazole (Protonix Tab) 40 mg BID@06,18 PO Last administered on 06/26/17 05:28; Admin Dose 40 MG; Start 06/25/17 at 09:30 Ondansetron HCl (Zofran Inj) 4 mg Q6H PRN IV NAUSEA AND/OR VOMITING; Start at 09:30 Nitroglycerin (Nitroglycerin (Sl Tab) 0.4 Mg) 1 tab Q5M PRN SL CHEST PAIN Last administered on 06/26/17 01:35; Admin Dose 1 TAB; Start 06/25/17 at 09:30 Acetaminophen (Tylenol Tab) 650 mg Q6H PRN PO PAIN LEVEL 1-3 OR FEVER; Start 06/25/17 at 09:30 Acetaminophen/ Hydrocodone Bitart ([place] (5/325)) 1 tab Q6H PRN PO PAIN LEVEL 4 -6 Last administered on 06/26/17 05:07; Admin Dose 1 TAB; Start 06/25/17 at 09:30 Morphine Sulfate (morphine) 2 mg Q4H PRN IV PAIN LEVEL 7-10; Start 06/25/17 at 09:30 Docusate Sodium (Colace) 100 mg Q12H PRN PO CONSTIPATION; Start 06/25/17 at 09 :30 Magnesium Hydroxide (Milk Of Mag) 30 ml DAILY PRN PO CONSTIPATION; Start 06/25 at 09:30 Bisacodyl (Dulcolax Supp) 10 mg DAILY PRN [place] CONSTIPATION; Start 06/25/17 at 09:30 Metoprolol Tartrate (Lopressor) 25 mg BID PO Last administered on 06/26/17 09 :11; Admin Dose 25 MG; Start 06/25/17 at 09:30 Isosorbide Dinitrate (Isordil) 10 mg TID PO Last administered on 06/26/17 09: 11; Admin Dose 10 MG; Start 06/25/17 at 09:30 Hydralazine HCl (Apresoline) 10 mg Q8 PRN IV ELEVATED BLOOD PRESSURE Last administered on 06/26/17 01:00; Admin Dose 10 MG; Start 06/25/17 at 12:00 Folic Acid (Folic Acid) 1 mg DAILY PO Last administered on 06/26/17 09:11; Admin Dose 1 MG; Start 06/25/17 at 14:00 Multivitamins Therapeutic (Theragran) 1 tab DAILY PO Last administered on 06/26 09:11; Admin Dose 1 TAB; Start 06/25/17 at 14:00 Thiamine HCl (Vitamin B1) 100 mg DAILY PO Last administered on 06/26/17 09:10 ; Admin Dose 100 MG; Start 06/25/17 at 14:00 Lorazepam (Ativan) 1 mg Q6H PRN IV CONTROL WITHDRAWAL SYMPTOMS; Start at 14:00 Nicotine (Nicoderm 14 Mg/ 24hr) 1 patch DAILY TRANSDERM Last administered on 09:11; Admin Dose 1 PATCH; Start 06/25/17 at 14:00 Ferrous Sulfate 325 mg 325 mg BID PO ; Start 06/26/17 at 09:00 Magnesium Sulfate (Magnesium Sulfate 4 Gm/100 ml) 100 ml @ 25 mls/hr ONCE ONCE IVPB ; Start 06/26/17 at 11:00; Stop 06/26/17 at 14:59 JAVIER SOLORIO MD Jun 26, 2017 10:02
[2017-06-26] MEDS: FERROUS SULFATE (EC) 325 MG TAB PO SCH ×2 (10:46→20:14)
[2017-06-26] MEDS ORDERED: MAGNESIUM SULFATE 4 GM/100 ML 100 ML IVPB ONE (11:00)
[2017-06-26] MEDS: ACETAMINOPHEN 325 MG TAB PO PRN (12:11)
--- NOTE | 2017-06-26 12:13 | RADRPT ---
Echocardiogram Report Patient Name: ROSALIO LEY Gender: Male Date: 1955 Study Date: 25-Jun-2017 Daycare Director: BEULAH MOTLEY [facility] Location: [facility] Ref. Physician: MARIANNA US Quality: Adequate Procedures: Transthoracic echocardiogram with complete 2D, M-Mode, and doppler examination. Indications: Congestive Heart Failure. 2D/M Mode Doppler Measurement Value Normal Ranges Measurement Value Normal Ranges LVIDd 2D 6.3 3.5 - 5.6 cm AV Peak Laith 1.7 m/sec LVIDs 2D 5.2 2.1 - 4.1 cm AV Peak PG 12.0 mmHg FS 2D 17.1 % AI Peak PG 81.0 mmHg LVPWd 2D 1.6 0.6 - 1.1 cm AI Peak Laith 4.5 m/sec IVSd 2D 1.5 0.6 - 1.1 cm AI PHT 372.0 msec IVS/LVPW 2D 0.9 LVOT Peak Laith 1.3 m/sec AoR Diam 2D 3.0 2.0 - 3.7 cm LVOT Peak PG 6.0 mmHg LA/Ao 2D 1 0 - 1 MV E Peak Laith 0.7 m/sec EDV 2D 252.0 cm3 MV A Peak Laith 1.2 m/sec ESV 2D 144.0 cm3 MV E/A 0.6 LA Dimen 2D 3.9 2.3 - 4.0 cm MV Decel Time 183 msec MV E/A 0.6 TR Peak Laith 2.0 m/sec TR Peak PG 17.0 mmHg RVSP 20.0 mmHg Findings Left Ventricle: Moderate concentric left ventricular hypertrophy. Mild enlargement of left ventricle cavity. Severe global left ventricular systolic dysfunction. Ejection fraction is visually estimated at 25 %. Tissue Doppler/Mitral Doppler indices are consistent with impaired relaxation (Stage I diastolic dysfunction). Right Ventricle: Normal right ventricular size. Normal right ventricular systolic function. Left Atrium: The left atrium is normal in size. Right Atrium: The right atrium is normal in size. Mitral Valve: Mild mitral leaflet calcification. Mild mitral annular calcification. Mild mitral valve regurgitation. Aortic Valve: Aortic sclerosis without stenosis. Moderate aortic valve regurgitation. Tricuspid Valve: Normal appearance of the tricuspid valve. Estimated peak PA systolic pressure 20 mmHg. There is trace tricuspid regurgitation. Pulmonic Valve: Pulmonic valve not well visualized. There is trace pulmonic regurgitation. Pericardium: Normal pericardium with no significant pericardial effusion. Aorta: Normal aortic root. IVC: Normal size and normal respiratory collapse consistent with normal right atrial pressure. Conclusions 1.Moderate concentric left ventricular hypertrophy. Mild enlargement of left ventricle cavity. Severe global left ventricular systolic dysfunction. Ejection fraction is visually estimated at 25 %. Tissue Doppler/Mitral Doppler indices are consistent with impaired relaxation (Stage I diastolic dysfunction). 2.Normal right ventricular size. Normal right ventricular systolic function. 3.The left atrium is normal in size. 4.The right atrium is normal in size. 5.Mild mitral leaflet calcification. Mild mitral annular calcification. Mild mitral valve regurgitation. 6.Aortic sclerosis without stenosis. Moderate aortic valve regurgitation. 7.Normal appearance of the tricuspid valve. Estimated peak PA systolic pressure 20 mmHg. There is trace tricuspid regurgitation. 8.Normal size and normal respiratory collapse consistent with normal right atrial pressure. Electronically Signed By: Blake Wallace 26-Jun-2017 12:12:50 -0700 Patient Name: ROSALIO LEY Study Date: 25-Jun-2017 [id number]
[2017-06-26 13:12] LABS: HEMATOCRIT 24.5 % (42.0-52.0); HEMOGLOBIN 7.9 g/dl (14.0-18.0)
[2017-06-26 18:26] LABS: HEMATOCRIT 28.4 % (42.0-52.0); HEMOGLOBIN 8.9 g/dl (14.0-18.0)
[2017-06-26] MEDS: LORAZEPAM 2 MG INJ IV PRN (20:14)
[2017-06-27] VITALS (13 sets, daily range): BP systolic 119–186; BP diastolic 64–94; PULSE 58–84; RESP 17–21
[2017-06-27] MEDS: SUCRALFATE 1 GM TAB PO SCH ×4 (00:10→17:17)
[2017-06-27] MEDS: LOSARTAN 25 MG TAB PO SCH ×3 (01:00→21:28)
[2017-06-27] MEDS ORDERED: hydrALAzine 20 MG INJ IV PRN (01:00)
[2017-06-27] MEDS ORDERED: LOSARTAN 25 MG TAB PO SCH (01:00)
[2017-06-27] MEDS: hydrALAzine 20 MG INJ IV PRN (02:48)
[2017-06-27] MEDS: NITROGLYCERIN (SL) 0.4 MG TAB SL PRN ×2 (03:05→22:35)
[2017-06-27] MEDS: morphine 2 MG INJ IV PRN ×2 (03:08→22:36)
[2017-06-27] MEDS: PANTOPRAZOLE (EC) 40 MG TAB PO SCH ×2 (06:38→17:17)
[2017-06-27] MEDS: FUROSEMIDE 40 MG INJ IV SCH ×2 (06:39→17:17)
[2017-06-27 08:26] LABS: ABNORMAL IP MESSAGE 1; BASOPHILS % 0.3 % (0.0-2.0); EOSINOPHILS # 0.1 10^3/ul (0.0-0.5); HEMATOCRIT 26.1 % (42.0-52.0); HEMOGLOBIN 8.3 g/dl (14.0-18.0); LYMPHOCYTES # 1.6 10^3/ul (0.8-2.9); LYMPHOCYTES % 16.8 % (15.0-51.0); MEAN CORPUSCULAR HEMOGLOBIN 23.5 pg (29.0-33.0); MEAN CORPUSCULAR HGB CONC 31.8 g/dl (32.0-37.0); MEAN CORPUSCULAR VOLUME 73.9 fl (82.0-101.0); MEAN PLATELET VOLUME 9.8 fl (7.4-10.4); MONOCYTE # 1.2 10^3/ul (0.3-0.9); MONOCYTES % 11.8 % (0.0-11.0); NEUTROPHIL # 6.8 10^3/ul (1.6-7.5); NEUTROPHILS % 69.3 % (39.0-77.0); PLATELET COUNT 341 10^3/UL (140-415); POSITIVE DIFF @See below; RED BLOOD COUNT 3.53 10^6/ul (4.70-6.10); WHITE BLOOD COUNT 9.8 10^3/ul (4.8-10.8)
[2017-06-27] MEDS: ISOSORBIDE DINITRATE 10 MG TAB PO SCH ×3 (08:27→20:33)
[2017-06-27] MEDS: MULTIVITAMINS THERAPEUTIC TAB PO SCH (08:27)
[2017-06-27] MEDS: FERROUS SULFATE (EC) 325 MG TAB PO SCH ×2 (08:27→20:34)
[2017-06-27] MEDS: FOLIC ACID 1 MG TAB PO SCH (08:27)
[2017-06-27] MEDS: METOPROLOL 25 MG TAB PO SCH (08:28)
[2017-06-27] MEDS: THIAMINE 100 MG TAB PO SCH (08:28)
[2017-06-27] MEDS: NICOTINE (14 MG/24 HR) PATCH TRANSDERM SCH (08:28)
[2017-06-27 08:51] LABS: MAGNESIUM 1.7 mg/dl (1.7-2.5); PHOSPHORUS 3.4 mg/dl (2.5-4.9)
[2017-06-27 08:54] LABS: CALCIUM 8.6 mg/dl (8.4-10.2); CREATININE 1.37 mg/dl (0.61-1.24); POTASSIUM 3.4 mmol/L (3.5-5.1)
[2017-06-27] MEDS ORDERED: POTASSIUM CHLORIDE (SR) 20 MEQ TAB PO STA (11:45)
[2017-06-27] MEDS ORDERED: MAGNESIUM SULFATE 2 GM/50 ML 50 ML IVPB ONE (12:00)
[2017-06-27 12:38] LABS: CREATINE KINASE 34 IU/L (23-200)
[2017-06-27 12:52] LABS: TROPONIN-I 0.067 ng/ml (0.00-0.12)
[2017-06-27 12:59] LABS: CK-MB < 0.22 ng/ml (0.0-2.4)
--- NOTE | 2017-06-27 14:31 | CONS ---
Date/Time of Note Date/Time of Note DATE: 06/27/17 TIME: 14:28 Assessment/Plan Assessment/Plan Additional Assessment/Plan Hypertension urgency Severe cardiomyopathy with ejection fraction 25% Acute decompensated systolic congestive heart failure Acute blood loss anemia status post blood transfusion Alcohol abuse Mildly elevated troponin -Patient with poorly controlled hypertension, medications have been adjusted. If needed, could increase dose of Cozaar. Maintain potassium above 4.0 and magnesium above 2.0. Patient with recurrent worsening anemia with known history of gastric disease awaiting GI evaluation. Troponin elevation is likely multifactorial including severe anemia, hypertension, decompensated congestive heart failure. Unfortunately, given his recurrent anemia requiring blood transfusion, cannot start aspirin at the current time. Will continue beta -zechariah, FRAN inhibitor, start statin therapy, diuretics. Consultation Date/Type/Reason Admit Date/Time Jun 25, 2017 at 07:38 Initial Consult Date 06/26/17 Type of Consultation: cv Referring Provider: ASHISH US 24 HR Interval Summary Free Text/Dictation Patient complaining of aching like chest discomfort and points to epigastric region and bilateral chest, worse with different positions. Denies shortness of breath, dizziness or palpitations Exam/Review of Systems Vital Signs Vitals Vital Signs Date Time Temp Pulse Resp B/P Pulse Ox O2 Delivery O2 Flow Rate FiO2 06/27/17 12:37 71 06/27/17 12:03 98.4 18 150/72 97 06/27/17 07:54 Nasal Cannula 2.0 06/25/17 07:41 60 Intake and Output 06/26/17 06/26/17 06/27/17 15:00 23:00 07:00 Intake Total 900 ml 1360 ml Output Total 900 ml 2700 ml Balance 0 ml -1340 ml Exam No apparent distress Constitutional: alert, oriented Head: normocephalic Respiratory: other (Coarse breath sounds bilaterally, no wheezing) Cardiovascular: other (S1-S2 heard), regular rate and rhythm Gastrointestinal: bowel sounds, non-tender, soft Extremities: edema (Trace) Results Result Diagram: 06/27/17 0751 06/27/17 0751 Results 24 hrs Laboratory Tests Test 06/26/17 18:19 06/27/17 07:51 06/27/17 12:11 Hemoglobin 8.9 L 8.3 L Hematocrit 28.4 L 26.1 L White Blood Count 9.8 Red Blood Count 3.53 L Mean Corpuscular Volume 73.9 L Mean Corpuscular Hemoglobin 23.5 L Mean Corpuscular Hemoglobin Concent 31.8 L Red Cell Distribution Width 24.0 H Platelet Count 341 Mean Platelet Volume 9.8 Neutrophils % 69.3 Lymphocytes % 16.8 Monocytes % 11.8 H Eosinophils % 1.0 Basophils % 0.3 Nucleated Red Blood Cells % 0.0 Neutrophils # 6.8 Lymphocytes # 1.6 Monocytes # 1.2 H Eosinophils # 0.1 Basophils # 0.0 Nucleated Red Blood Cells # 0.0 Sodium Level 136 Potassium Level 3.4 L Chloride Level 101 Carbon Dioxide Level 28 Anion Gap 10 # Blood Urea Nitrogen 10 Creatinine 1.37 H Glucose Level 96 Calcium Level 8.6 Phosphorus Level 3.4 Magnesium Level 1.7 Creatine Kinase 34 Creatine Kinase Index 0.6 Creatinine Kinase MB (Mass) < 0.22 Troponin I 0.067 Medications Medications Current Medications Sucralfate (Carafate) 1 gm Q6 PO Last administered on 06/27/17 12:07; Admin Dose 1 GM; Start 06/25/17 at 12:00 Pantoprazole (Protonix Tab) 40 mg BID@06,18 PO Last administered on 06/27/17 06:38; Admin Dose 40 MG; Start 06/25/17 at 09:30 Ondansetron HCl (Zofran Inj) 4 mg Q6H PRN IV NAUSEA AND/OR VOMITING; Start at 09:30 Nitroglycerin (Nitroglycerin (Sl Tab) 0.4 Mg) 1 tab Q5M PRN SL CHEST PAIN Last administered on 06/27/17 03:05; Admin Dose 1 TAB; Start 06/25/17 at 09:30 Acetaminophen (Tylenol Tab) 650 mg Q6H PRN PO PAIN LEVEL 1-3 OR FEVER Last administered on 06/26/17 12:11; Admin Dose 650 MG; Start 06/25/17 at 09:30 Acetaminophen/ Hydrocodone Bitart ([place] (5/325)) 1 tab Q6H PRN PO PAIN LEVEL 4 -6 Last administered on 06/26/17 05:07; Admin Dose 1 TAB; Start 06/25/17 at 09:30 Morphine Sulfate (morphine) 2 mg Q4H PRN IV PAIN LEVEL 7-10 Last administered on 06/27/17 03:08; Admin Dose 2 MG; Start 06/25/17 at 09:30 Docusate Sodium (Colace) 100 mg Q12H PRN PO CONSTIPATION; Start 06/25/17 at 09 :30 Magnesium Hydroxide (Milk Of Mag) 30 ml DAILY PRN PO CONSTIPATION; Start 06/25 at 09:30 Bisacodyl (Dulcolax Supp) 10 mg DAILY PRN [place] CONSTIPATION; Start 06/25/17 at 09:30 Isosorbide Dinitrate (Isordil) 10 mg TID PO Last administered on 06/27/17 12: 07; Admin Dose 10 MG; Start 06/25/17 at 09:30 Folic Acid (Folic Acid) 1 mg DAILY PO Last administered on 06/27/17 08:27; Admin Dose 1 MG; Start 06/25/17 at 14:00 Multivitamins Therapeutic (Theragran) 1 tab DAILY PO Last administered on 06/27 08:27; Admin Dose 1 TAB; Start 06/25/17 at 14:00 Thiamine HCl (Vitamin B1) 100 mg DAILY PO Last administered on 06/27/17 08:28 ; Admin Dose 100 MG; Start 06/25/17 at 14:00 Lorazepam (Ativan) 1 mg Q6H PRN IV CONTROL WITHDRAWAL SYMPTOMS Last administered on 06/26/17 20:14; Admin Dose 1 MG; Start 06/25/17 at 14:00 Nicotine (Nicoderm 14 Mg/ 24hr) 1 patch DAILY TRANSDERM Last administered on 08:28; Admin Dose 1 PATCH; Start 06/25/17 at 14:00 Ferrous Sulfate (Ferrous Sulfate (Ec)) 325 mg BID PO Last administered on 06/27 08:27; Admin Dose 325 MG; Start 06/26/17 at 09:00 Losartan Potassium (Cozaar) 25 mg BID PO Last administered on 06/27/17 11:24 ; Admin Dose 25 MG; Start 06/27/17 at 01:00 Hydralazine HCl (Apresoline) 10 mg Q6H PRN IV high blood pressure Last administered on 06/27/17 02:48; Admin Dose 10 MG; Start 06/27/17 at 01:00 Carvedilol (Coreg) 6.25 mg BID PO ; Start 06/27/17 at 21:00 David Martinez DO Jun 27, 2017 14:31
--- NOTE | 2017-06-27 14:58 | PN ---
Date/Time of Note Date/Time of Note DATE: 06/27/17 TIME: 14:42 Assessment/Plan VTE Prophylaxis VTE Prophylaxis Intervention: SCD's Lines/Catheters IV [facility]from [facility] Saline Lock Urinary Cath still in place: No Assessment/Plan Assessment/Plan 62-year-old male with: 1. Pulmonary edema, CHF exacerbation with respiratory distress, echocardiogram pending to evaluate ejection fraction with cardiomyopathy. Improved respiratory status this morning Continue diuresis with Lasix and will add Aldactone. Slightly elevated cardiac enzymes, keep trending down. Continue diuresis. Repeat chest x-ray in a.m. Repeat EKG today with diffuse T wave abnormalities 2D echocardiogram with 25% EF. 2. Slightly elevated troponins, in setting of anemia, CHF exacerbation. Patient also had an episode of nonsustained V. tach 3 beats a couple of nights ago. Getting pRBC transfusion Follow-up on chemistry replete electrolytes as needed. Cardiology following and optimizing medical management. 3. Microcytic chronic anemia, acute exacerbation, questionable ongoing slow GI bleed or intermittent upper GI bleed versus lower GI bleed. Patient did have 2 EGDs done few months ago with findings of gastritis for which he has been treated as he was H pylori positive. He was also advised to stop alcohol use but that he has not done so so far. Hemoglobin up to 8.2 and per Cardio needs close to 9 Will transfuse 1 more unit of pRBC Continue Protonix treatment dose 40 mg p.o. twice daily along with Carafate for known gastritis and gastric ulcers GI consult with Dr Salazar 4. Hypertension: Uncontrolled and untreated. Patient has been switched to Coreg, continue Isordil and Cozaar added Patient with cardiomyopathy and EF 25% 5. Reported seizure disorder: Monitor, patient has been off medication for 2 years. No seizures 6. Tobacco use: We will offer nicotine patch, he has been advised to quit 7. Alcohol abuse: Counseled to quit, patient denies any history of alcohol withdrawal, he claims that he can go days without drinking. Will monitor closely, Ativan as needed. If shows signs of alcohol withdrawal we will start him on Librium. Continue on multivitamin, folate and thiamine. 8. Gastritis, gastric ulcers on previous EGD: Continue Protonix and Carafate. GI consult with Dr Salazar Prophylaxis: SCDs to lower extremity for DVT prophylaxis, Protonix known gastritis Disposition: Continue to monitor on telemetry, given positive troponins, patient to remain at [facility] with cardiology following GI consult, blood pressure control, diuresis, blood transfusion. Subjective 24 Hr Interval Summary Free Text/Dictation Patient doing Ok today Respiratory status stable Appreciate recommendations from Dr Martinez and will consult Dr Salazar from GI Exam/Review of Systems Vital Signs Vitals Vital Signs Date Time Temp Pulse Resp B/P Pulse Ox O2 Delivery O2 Flow Rate FiO2 06/27/17 12:37 71 06/27/17 12:03 98.4 18 150/72 97 06/27/17 07:54 Nasal Cannula 2.0 06/25/17 07:41 60 Intake and Output 06/26/17 06/26/17 06/27/17 15:00 23:00 07:00 Intake Total 900 ml 1360 ml Output Total 900 ml 2700 ml Balance 0 ml -1340 ml Exam Constitutional: alert, oriented, well developed Respiratory: diminished breath sounds (bases bilaterally ), normal air movement Cardiovascular: nl pulses, regular rate and rhythm Gastrointestinal: non-tender, soft Musculoskeletal: nl extremities to inspection Extremities: normal pulses, other (trace edema ) Neurological: FABRICATION LEAD II-XII intact, nl mental status, nl speech, nl strength Results Result Diagram: 06/27/17 0751 06/27/17 0751 Results 24 hrs Laboratory Tests Test 06/26/17 18:19 06/27/17 07:51 06/27/17 12:11 Hemoglobin 8.9 L 8.3 L Hematocrit 28.4 L 26.1 L White Blood Count 9.8 Red Blood Count 3.53 L Mean Corpuscular Volume 73.9 L Mean Corpuscular Hemoglobin 23.5 L Mean Corpuscular Hemoglobin Concent 31.8 L Red Cell Distribution Width 24.0 H Platelet Count 341 Mean Platelet Volume 9.8 Neutrophils % 69.3 Lymphocytes % 16.8 Monocytes % 11.8 H Eosinophils % 1.0 Basophils % 0.3 Nucleated Red Blood Cells % 0.0 Neutrophils # 6.8 Lymphocytes # 1.6 Monocytes # 1.2 H Eosinophils # 0.1 Basophils # 0.0 Nucleated Red Blood Cells # 0.0 Sodium Level 136 Potassium Level 3.4 L Chloride Level 101 Carbon Dioxide Level 28 Anion Gap 10 # Blood Urea Nitrogen 10 Creatinine 1.37 H Glucose Level 96 Calcium Level 8.6 Phosphorus Level 3.4 Magnesium Level 1.7 Creatine Kinase 34 Creatine Kinase Index 0.6 Creatinine Kinase MB (Mass) < 0.22 Troponin I 0.067 Medications Medications Current Medications Sucralfate (Carafate) 1 gm Q6 PO Last administered on 06/27/17 12:07; Admin Dose 1 GM; Start 06/25/17 at 12:00 Pantoprazole (Protonix Tab) 40 mg BID@06,18 PO Last administered on 06/27/17 06:38; Admin Dose 40 MG; Start 06/25/17 at 09:30 Ondansetron HCl (Zofran Inj) 4 mg Q6H PRN IV NAUSEA AND/OR VOMITING; Start at 09:30 Nitroglycerin (Nitroglycerin (Sl Tab) 0.4 Mg) 1 tab Q5M PRN SL CHEST PAIN Last administered on 06/27/17 03:05; Admin Dose 1 TAB; Start 06/25/17 at 09:30 Acetaminophen (Tylenol Tab) 650 mg Q6H PRN PO PAIN LEVEL 1-3 OR FEVER Last administered on 06/26/17 12:11; Admin Dose 650 MG; Start 06/25/17 at 09:30 Acetaminophen/ Hydrocodone Bitart ([place] (5/325)) 1 tab Q6H PRN PO PAIN LEVEL 4 -6 Last administered on 06/26/17 05:07; Admin Dose 1 TAB; Start 06/25/17 at 09:30 Morphine Sulfate (morphine) 2 mg Q4H PRN IV PAIN LEVEL 7-10 Last administered on 06/27/17 03:08; Admin Dose 2 MG; Start 06/25/17 at 09:30 Docusate Sodium (Colace) 100 mg Q12H PRN PO CONSTIPATION; Start 06/25/17 at 09 :30 Magnesium Hydroxide (Milk Of Mag) 30 ml DAILY PRN PO CONSTIPATION; Start 06/25 at 09:30 Bisacodyl (Dulcolax Supp) 10 mg DAILY PRN [place] CONSTIPATION; Start 06/25/17 at 09:30 Isosorbide Dinitrate (Isordil) 10 mg TID PO Last administered on 06/27/17 12: 07; Admin Dose 10 MG; Start 06/25/17 at 09:30 Folic Acid (Folic Acid) 1 mg DAILY PO Last administered on 06/27/17 08:27; Admin Dose 1 MG; Start 06/25/17 at 14:00 Multivitamins Therapeutic (Theragran) 1 tab DAILY PO Last administered on 06/27 08:27; Admin Dose 1 TAB; Start 06/25/17 at 14:00 Thiamine HCl (Vitamin B1) 100 mg DAILY PO Last administered on 06/27/17 08:28 ; Admin Dose 100 MG; Start 06/25/17 at 14:00 Lorazepam (Ativan) 1 mg Q6H PRN IV CONTROL WITHDRAWAL SYMPTOMS Last administered on 06/26/17 20:14; Admin Dose 1 MG; Start 06/25/17 at 14:00 Nicotine (Nicoderm 14 Mg/ 24hr) 1 patch DAILY TRANSDERM Last administered on 08:28; Admin Dose 1 PATCH; Start 06/25/17 at 14:00 Ferrous Sulfate (Ferrous Sulfate (Ec)) 325 mg BID PO Last administered on 06/27 08:27; Admin Dose 325 MG; Start 06/26/17 at 09:00 Losartan Potassium (Cozaar) 25 mg BID PO Last administered on 06/27/17 11:24 ; Admin Dose 25 MG; Start 06/27/17 at 01:00 Hydralazine HCl (Apresoline) 10 mg Q6H PRN IV high blood pressure Last administered on 06/27/17 02:48; Admin Dose 10 MG; Start 06/27/17 at 01:00 Carvedilol (Coreg) 6.25 mg BID PO ; Start 06/27/17 at 21:00 Atorvastatin Calcium (Lipitor) 40 mg HS PO ; Start 06/27/17 at 21:00 ASHISH US Jun 27, 2017 14:52
--- NOTE | 2017-06-27 16:14 | CONS ---
Date/Time of Note Date/Time of Note DATE: 06/27/17 TIME: 15:41 Assessment/Plan Assessment/Plan Chief Complaint/Hosp Course Summary Assessment and Plan: Assessment: Cardiomyopathy EF 25% Anemia Slight elevated troponin's HTN Seizures- off meds x2 years, no seizures reported Plan: Npo after midnight EGD tomorrow Risks/benefits/alternatives/indications of procedure and sedation/anesthesia discussed with patient who states understading and gives informed consent to proceed. Questions were answered Pt seen in collaboration with Dr. Salazar Chief Complaint/Reason for Visit: Microcytic Anemia History of Present Illness: Pleasant 62-year-old male with history of ETOH use, gastritis, gastric ulcer, h. pylori (treated), chronic anemia, cardiomyopathy EF 25%, GERD, and seizures ( has been off meds x2 years, no seizures). Admitted to the hospital for CHF exacerbation, anemia, and slight elevated troponin's. He has been evaluated by cardiology and cleared for procedures starting tomorrow. On admission Hgb 7.7 which then dropped to 6.8, patient was transfused and responded. Stool for OB(+ ) during this admission. He denies hematemesis, unintentional weight loss, BRBPR , or constipation. He does c/o GERD sx, epigastric abd pain, watery diarrhea which now has improved and described as soft. No bm today. Past Medical History: CHF Cardiomyopathy EF 25% Chronic microcytic anemia Hx of H. pylori (treated) HTN Gastritis Gastric ulcer GERD Seizures Current tobacco use ETOH use Allergies: No know allergies Family History: No pertinent Social History: Smoking daily History of cocaine use Denies IV drug use ETOH daily 3-6 12oz cans of beer daily Problems: Consultation Date/Type/Reason Admit Date/Time Jun 25, 2017 at 07:38 Date of Consultation: Jun 27, 2017 Type of Consultation: GI Reason for Consultation Anemia Constitutional: no complaints Eyes: no complaints ENT: no complaints Respiratory: other (Dyspnea on exertion and orthopnea), shortness of breath Cardiovascular: edema (Bilateral lower extremities), orthopenea, paroxysmal nocturnal dyspnea Gastrointestinal: blood, diarrhea, no complaints, pain Genitourinary: no complaints Musculoskeletal: no complaints Skin: no complaints Neurologic: no complaints Psychological: no complaints Past Medical History Seizure Medical History: GERD, GI bleed, hypertension Past Surgical History Past Surgical Hx: no surgical history Family History Significant Family History: no pertinent family hx Social History Alcohol Use: other (2-5 beers a day, last beer was yesterday since age 21 at least) Smoking Status: Current every day smoker (1/2 pack per day for the past 40 yrs at least ) Drug Use: cocaine (remote use ) Exam/Review of Systems Vital Signs Vitals Vital Signs Date Time Temp Pulse Resp B/P Pulse Ox O2 Delivery O2 Flow Rate FiO2 06/27/17 12:37 71 06/27/17 12:03 98.4 18 150/72 97 06/27/17 07:54 Nasal Cannula 2.0 06/25/17 07:41 60 Intake and Output 06/26/17 06/26/17 06/27/17 15:00 23:00 07:00 Intake Total 900 ml 1360 ml Output Total 900 ml 2700 ml Balance 0 ml -1340 ml Exam Constitutional: alert Psych: no complaints Head: atraumatic, normocephalic Eyes: nl conjunctiva ENMT: nl external ears & nose Neck: supple Gastrointestinal: bowel sounds, distended, hepatomegaly, tender, No mass, No rebound or guarding, No splenomegaly, No surgical scars Genitourinary - Male: nl penis Musculoskeletal: nl extremities to inspection Extremities: normal pulses Skin: nl turgor Lymph: nl lymph nodes Results Result Diagram: 06/27/17 0751 06/27/17 0751 Results 24 hrs Laboratory Tests Test 06/26/17 18:19 06/27/17 07:51 06/27/17 12:11 Hemoglobin 8.9 L 8.3 L Hematocrit 28.4 L 26.1 L White Blood Count 9.8 Red Blood Count 3.53 L Mean Corpuscular Volume 73.9 L Mean Corpuscular Hemoglobin 23.5 L Mean Corpuscular Hemoglobin Concent 31.8 L Red Cell Distribution Width 24.0 H Platelet Count 341 Mean Platelet Volume 9.8 Neutrophils % 69.3 Lymphocytes % 16.8 Monocytes % 11.8 H Eosinophils % 1.0 Basophils % 0.3 Nucleated Red Blood Cells % 0.0 Neutrophils # 6.8 Lymphocytes # 1.6 Monocytes # 1.2 H Eosinophils # 0.1 Basophils # 0.0 Nucleated Red Blood Cells # 0.0 Sodium Level 136 Potassium Level 3.4 L Chloride Level 101 Carbon Dioxide Level 28 Anion Gap 10 # Blood Urea Nitrogen 10 Creatinine 1.37 H Glucose Level 96 Calcium Level 8.6 Phosphorus Level 3.4 Magnesium Level 1.7 Creatine Kinase 34 Creatine Kinase Index 0.6 Creatinine Kinase MB (Mass) < 0.22 Troponin I 0.067 Medications Medications Current Medications Sucralfate (Carafate) 1 gm Q6 PO Last administered on 06/27/17 12:07; Admin Dose 1 GM; Start 06/25/17 at 12:00 Pantoprazole (Protonix Tab) 40 mg BID@06,18 PO Last administered on 06/27/17 06:38; Admin Dose 40 MG; Start 06/25/17 at 09:30 Ondansetron HCl (Zofran Inj) 4 mg Q6H PRN IV NAUSEA AND/OR VOMITING; Start at 09:30 Nitroglycerin (Nitroglycerin (Sl Tab) 0.4 Mg) 1 tab Q5M PRN SL CHEST PAIN Last administered on 06/27/17 03:05; Admin Dose 1 TAB; Start 06/25/17 at 09:30 Acetaminophen (Tylenol Tab) 650 mg Q6H PRN PO PAIN LEVEL 1-3 OR FEVER Last administered on 06/26/17 12:11; Admin Dose 650 MG; Start 06/25/17 at 09:30 Acetaminophen/ Hydrocodone Bitart ([place] (5/325)) 1 tab Q6H PRN PO PAIN LEVEL 4 -6 Last administered on 06/26/17 05:07; Admin Dose 1 TAB; Start 06/25/17 at 09:30 Morphine Sulfate (morphine) 2 mg Q4H PRN IV PAIN LEVEL 7-10 Last administered on 06/27/17 03:08; Admin Dose 2 MG; Start 06/25/17 at 09:30 Docusate Sodium (Colace) 100 mg Q12H PRN PO CONSTIPATION; Start 06/25/17 at 09 :30 Magnesium Hydroxide (Milk Of Mag) 30 ml DAILY PRN PO CONSTIPATION; Start 06/25 at 09:30 Bisacodyl (Dulcolax Supp) 10 mg DAILY PRN [place] CONSTIPATION; Start 06/25/17 at 09:30 Isosorbide Dinitrate (Isordil) 10 mg TID PO Last administered on 06/27/17 12: 07; Admin Dose 10 MG; Start 06/25/17 at 09:30 Folic Acid (Folic Acid) 1 mg DAILY PO Last administered on 06/27/17 08:27; Admin Dose 1 MG; Start 06/25/17 at 14:00 Multivitamins Therapeutic (Theragran) 1 tab DAILY PO Last administered on 06/27 08:27; Admin Dose 1 TAB; Start 06/25/17 at 14:00 Thiamine HCl (Vitamin B1) 100 mg DAILY PO Last administered on 06/27/17 08:28 ; Admin Dose 100 MG; Start 06/25/17 at 14:00 Lorazepam (Ativan) 1 mg Q6H PRN IV CONTROL WITHDRAWAL SYMPTOMS Last administered on 06/26/17 20:14; Admin Dose 1 MG; Start 06/25/17 at 14:00 Nicotine (Nicoderm 14 Mg/ 24hr) 1 patch DAILY TRANSDERM Last administered on 08:28; Admin Dose 1 PATCH; Start 06/25/17 at 14:00 Ferrous Sulfate (Ferrous Sulfate (Ec)) 325 mg BID PO Last administered on 06/27 08:27; Admin Dose 325 MG; Start 06/26/17 at 09:00 Losartan Potassium (Cozaar) 25 mg BID PO Last administered on 06/27/17 11:24 ; Admin Dose 25 MG; Start 06/27/17 at 01:00 Hydralazine HCl (Apresoline) 10 mg Q6H PRN IV high blood pressure Last administered on 06/27/17 02:48; Admin Dose 10 MG; Start 06/27/17 at 01:00 Carvedilol (Coreg) 6.25 mg BID PO ; Start 06/27/17 at 21:00 Atorvastatin Calcium (Lipitor) 40 mg HS PO ; Start 06/27/17 at 21:00 Copies To: CC: PRUDENCE SALAZAR MD, VICTORIA Jun 27, 2017 16:01
[2017-06-27] MEDS: ATORVASTATIN 40 MG TAB PO SCH (20:34)
[2017-06-27] MEDS ORDERED: ATORVASTATIN 40 MG TAB PO SCH (21:00)
[2017-06-28] VITALS (18 sets, daily range): BP systolic 153–205; BP diastolic 86–104; PULSE 62–75; RESP 14–22
[2017-06-28] MEDS: SUCRALFATE 1 GM TAB PO SCH ×4 (00:51→20:05)
[2017-06-28] MEDS: hydrALAzine 20 MG INJ IV PRN ×3 (01:09→20:06)
[2017-06-28] MEDS: LORAZEPAM 2 MG INJ IV PRN (01:42)
[2017-06-28] MEDS: FUROSEMIDE 40 MG INJ IV SCH ×2 (05:38→20:05)
[2017-06-28] MEDS: PANTOPRAZOLE (EC) 40 MG TAB PO SCH ×2 (06:00→08:42)
[2017-06-28 07:41] LABS: ABNORMAL IP MESSAGE 1; BASOPHILS % 0.4 % (0.0-2.0); EOSINOPHILS # 0.2 10^3/ul (0.0-0.5); EOSINOPHILS % 1.5 % (0.0-7.0); HEMATOCRIT 26.6 % (42.0-52.0); HEMOGLOBIN 8.1 g/dl (14.0-18.0); LYMPHOCYTES # 1.8 10^3/ul (0.8-2.9); LYMPHOCYTES % 18.9 % (15.0-51.0); MEAN CORPUSCULAR HEMOGLOBIN 22.4 pg (29.0-33.0); MEAN CORPUSCULAR HGB CONC 30.5 g/dl (32.0-37.0); MEAN CORPUSCULAR VOLUME 73.7 fl (82.0-101.0); MEAN PLATELET VOLUME 9.7 fl (7.4-10.4); MONOCYTE # 1.3 10^3/ul (0.3-0.9); MONOCYTES % 13.2 % (0.0-11.0); NEUTROPHIL # 6.4 10^3/ul (1.6-7.5); NEUTROPHILS % 65.5 % (39.0-77.0); PLATELET COUNT 332 10^3/UL (140-415); POSITIVE DIFF @See below; RED BLOOD COUNT 3.61 10^6/ul (4.70-6.10); RED CELL DISTRIBUTION WIDTH 25.3 % (11.5-14.5); WHITE BLOOD COUNT 9.7 10^3/ul (4.8-10.8)
[2017-06-28 08:20] LABS: MAGNESIUM 1.6 mg/dl (1.7-2.5); PHOSPHORUS 3.9 mg/dl (2.5-4.9)
[2017-06-28 08:38] LABS: CALCIUM 8.8 mg/dl (8.4-10.2); CREATININE 1.37 mg/dl (0.61-1.24); POTASSIUM 3.6 mmol/L (3.5-5.1)
[2017-06-28] MEDS: NICOTINE (14 MG/24 HR) PATCH TRANSDERM SCH (08:40)
[2017-06-28] MEDS: FERROUS SULFATE (EC) 325 MG TAB PO SCH ×2 (08:40→20:05)
[2017-06-28] MEDS: FOLIC ACID 1 MG TAB PO SCH (08:40)
[2017-06-28] MEDS: MULTIVITAMINS THERAPEUTIC TAB PO SCH (08:40)
[2017-06-28] MEDS: THIAMINE 100 MG TAB PO SCH (08:40)
[2017-06-28] MEDS: LOSARTAN 25 MG TAB PO SCH (08:41)
[2017-06-28] MEDS: ISOSORBIDE DINITRATE 10 MG TAB PO SCH ×3 (08:41→20:07)
[2017-06-28] MEDS ORDERED: MAGNESIUM SULFATE 2 GM/50 ML 50 ML IVPB ONE (10:00)
--- NOTE | 2017-06-28 10:27 | PN ---
Date/Time of Note Date/Time of Note DATE: 06/28/17 TIME: :17 Assessment/Plan VTE Prophylaxis VTE Prophylaxis Intervention: SCD's Lines/Catheters IV C[facility]ter Type (from [facility]): Saline Lock Urinary Cath still in place: No Assessment/Plan Assessment/Plan 62-year-old male with: 1. Cardiomyopathy, pulmonary edema, CHF exacerbation with respiratory distress , echocardiogram pending to evaluate ejection fraction with cardiomyopathy. Improved respiratory status, on RA at times. Repeat EKG yesterday with diffuse T wave abnormalities. 2D echocardiogram with 25% EF. Continue diuresis with Lasix and will add Aldactone today. Repeat chest x-ray this morning pending Slightly elevated cardiac enzymes, keep trending down. Continue diuresis. Followed by cardiology, margarita to proceed with EGD today. 2. Slightly elevated troponins, in setting of anemia, CHF exacerbation. Patient also had an episode of nonsustained V. tach 3 beats a couple of nights ago. And EKG with some T-wave inversion yesterday but troponin trended down. Per cardiology needs EGD done to evaluate for source of bleeding prior to any additional cardiology invasive workup. Per margarita Oneal to proceed with EGD this afternoon. Getting 1 unit of PRBC transfusion this a.m. goal hemoglobin of 9, his hemoglobin has been stable around 8.1 for the past couple of days. Repeating magnesium. Cardiology following and optimizing medical management. 3. Microcytic chronic anemia, acute exacerbation, questionable ongoing slow GI bleed or intermittent upper GI bleed versus lower GI bleed. Patient did have 2 EGDs done few months ago with findings of gastritis for which he has been treated as he was H pylori positive. He was also advised to stop alcohol use but that he has not done so so far. Hemoglobin stable around 8.1, per Cardio needs close to 9, pending transfusion of 1 unit of pRBC today. Continue Protonix treatment dose 40 mg changed to IV twice daily while n.p.o. along with Carafate for known gastritis and gastric ulcers GI consult with Dr Salazar and plan for EGD this afternoon 4. Hypertension: Uncontrolled and untreated. Patient on Coreg, continue Isordil and Cozaar added Patient with cardiomyopathy and EF 25% 5. Reported seizure disorder: Monitor, patient has been off medication for 2 years. No seizures 6. Tobacco use: We will offer nicotine patch, he has been advised to quit 7. Alcohol abuse: Counseled to quit, patient denies any history of alcohol withdrawal, he claims that he can go days without drinking. Will monitor closely, Ativan as needed. If shows signs of alcohol withdrawal we will start him on Librium. Continue on multivitamin, folate and thiamine. 8. Gastritis, gastric ulcers on previous EGD: Continue Protonix and Carafate. EGD this afternoon with Dr Salazar Prophylaxis: SCDs to lower extremity for DVT prophylaxis, Protonix known gastritis Disposition: Continue to monitor on telemetry, given positive troponins, patient to remain at [facility] with cardiology following. EGD this afternoon, blood pressure control, diuresis, blood transfusion as needed. Subjective 24 Hr Interval Summary Free Text/Dictation Patient per cardiology okay to have EGD today, he is n.p.o. except for meds. On blood pressure medications, diuretics, cardiac medication as patient with cardiomyopathy and ejection fraction of 25%. Exam/Review of Systems Vital Signs Vitals Vital Signs Date Time Temp Pulse Resp B/P Pulse Ox O2 Delivery O2 Flow Rate FiO2 06/28/17 08:22 64 06/28/17 08:06 98.3 18 154/89 96 06/27/17 20:00 Nasal Cannula 2.0 06/25/17 07:41 60 Intake and Output 06/27/17 06/27/17 06/28/17 15:00 23:00 07:00 Intake Total 850 ml 200 ml Output Total 1800 ml 1700 ml Balance -950 ml -1500 ml Exam Constitutional: alert, oriented, other (Much more comfortable), well developed Respiratory: clear to auscultation, normal air movement Cardiovascular: nl pulses, regular rate and rhythm Gastrointestinal: non-tender, soft Musculoskeletal: nl extremities to inspection Extremities: normal pulses, other (No clubbing or cyanosis, no edema) Neurological: BACK ROLLER II-XII intact, nl mental status, nl speech, nl strength Results Result Diagram: 06/28/17 0656 06/28/1756 Results 24 hrs Laboratory Tests Test 06/27/17 12:11 06/28/17 06:56 Creatine Kinase 34 Creatine Kinase Index 0.6 Creatinine Kinase MB (Mass) < 0.22 Troponin I 0.067 White Blood Count 9.7 Red Blood Count 3.61 L Hemoglobin 8.1 L Hematocrit 26.6 L Mean Corpuscular Volume 73.7 L Mean Corpuscular Hemoglobin 22.4 L Mean Corpuscular Hemoglobin Concent 30.5 L Red Cell Distribution Width 25.3 H Platelet Count 332 Mean Platelet Volume 9.7 Neutrophils % 65.5 Lymphocytes % 18.9 Monocytes % 13.2 H Eosinophils % 1.5 Basophils % 0.4 Nucleated Red Blood Cells % 0.0 Neutrophils # 6.4 Lymphocytes # 1.8 Monocytes # 1.3 H Eosinophils # 0.2 Basophils # 0.0 Nucleated Red Blood Cells # 0.0 Sodium Level 135 Potassium Level 3.6 Chloride Level 98 Carbon Dioxide Level 31 Anion Gap 10 Blood Urea Nitrogen 12 Creatinine 1.37 H Glucose Level 92 Calcium Level 8.8 Phosphorus Level 3.9 Magnesium Level 1.6 L Medications Medications Current Medications Sucralfate (Carafate) 1 gm Q6 PO Last administered on 06/28/17 08:42; Admin Dose 1 GM; Start 06/25/17 at 12:00 Pantoprazole (Protonix Tab) 40 mg BID@06,18 PO Last administered on 06/28/17 08:42; Admin Dose 40 MG; Start 06/25/17 at 09:30 Ondansetron HCl (Zofran Inj) 4 mg Q6H PRN IV NAUSEA AND/OR VOMITING; Start at 09:30 Nitroglycerin (Nitroglycerin (Sl Tab) 0.4 Mg) 1 tab Q5M PRN SL CHEST PAIN Last administered on 06/27/17 22:35; Admin Dose 1 TAB; Start 06/25/17 at 09:30 Acetaminophen (Tylenol Tab) 650 mg Q6H PRN PO PAIN LEVEL 1-3 OR FEVER Last administered on 06/26/17 12:11; Admin Dose 650 MG; Start 06/25/17 at 09:30 Acetaminophen/ Hydrocodone Bitart ([place] (5/325)) 1 tab Q6H PRN PO PAIN LEVEL 4 -6 Last administered on 06/26/17 05:07; Admin Dose 1 TAB; Start 06/25/17 at 09:30 Morphine Sulfate (morphine) 2 mg Q4H PRN IV PAIN LEVEL 7-10 Last administered on 06/27/17 22:36; Admin Dose 2 MG; Start 06/25/17 at 09:30 Docusate Sodium (Colace) 100 mg Q12H PRN PO CONSTIPATION; Start 06/25/17 at 09 :30 Magnesium Hydroxide (Milk Of Mag) 30 ml DAILY PRN PO CONSTIPATION; Start 06/25 at 09:30 Bisacodyl (Dulcolax Supp) 10 mg DAILY PRN [place] CONSTIPATION; Start 06/25/17 at 09:30 Isosorbide Dinitrate (Isordil) 10 mg TID PO Last administered on 06/28/17 08: 41; Admin Dose 10 MG; Start 06/25/17 at 09:30 Folic Acid (Folic Acid) 1 mg DAILY PO Last administered on 06/28/17 08:40; Admin Dose 1 MG; Start 06/25/17 at 14:00 Multivitamins Therapeutic (Theragran) 1 tab DAILY PO Last administered on 06/28 08:40; Admin Dose 1 TAB; Start 06/25/17 at 14:00 Thiamine HCl (Vitamin B1) 100 mg DAILY PO Last administered on 06/28/17 08:40 ; Admin Dose 100 MG; Start 06/25/17 at 14:00 Lorazepam (Ativan) 1 mg Q6H PRN IV CONTROL WITHDRAWAL SYMPTOMS Last administered on 06/28/17 01:42; Admin Dose 1 MG; Start 06/25/17 at 14:00 Nicotine (Nicoderm 14 Mg/ 24hr) 1 patch DAILY TRANSDERM Last administered on 08:40; Admin Dose 1 PATCH; Start 06/25/17 at 14:00 Ferrous Sulfate (Ferrous Sulfate (Ec)) 325 mg BID PO Last administered on 06/28 08:40; Admin Dose 325 MG; Start 06/26/17 at 09:00 Losartan Potassium (Cozaar) 25 mg BID PO Last administered on 06/28/17 08:41 ; Admin Dose 25 MG; Start 06/27/17 at 01:00 Hydralazine HCl (Apresoline) 10 mg Q6H PRN IV high blood pressure Last administered on 06/28/17 01:09; Admin Dose 10 MG; Start 06/27/17 at 01:00 Carvedilol (Coreg) 6.25 mg BID PO Last administered on 06/28/17 08:42; Admin Dose 6.25 MG; Start 06/27/17 at 21:00 Atorvastatin Calcium 40 mg 40 mg HS PO Last administered on 06/27/17t 20:34; Admin Dose 40 MG; Start 06/27/17 at 21:00 Magnesium Sulfate 50 ml @ 25 mls/hr ONCE ONCE IVPB ; Start 06/28/17 at 10:00; Stop 06/28/17 at 11:59 Potassium Chloride/Sodium Chloride (KCl/NS) 110 ml @ 55 mls/hr ONCE ONCE IVPB ; Start 06/28/17 at 11:30; Stop 06/28/17 at 13:29 ASHISH US Jun 28, 2017 10:27
[2017-06-28] MEDS ORDERED: POTASSIUM CHLORIDE 20 MEQ in SOD CHLORIDE 0.9% 100 ML IVPB ONE (11:30)
--- NOTE | 2017-06-28 15:02 | RADRPT ---
Vent Rate: 0 bpm RR Interval: 0 msec MA Interval: 0 msec QRS Duration: 0 msec QT Interval: 0 msec QTC Interval: 0 msec P-R-T [place]: 0 - 0 - 0 degrees Electronically Signed By: Dewayne Cummings [id number]
[2017-06-28] MEDS: ACETAMINOPHEN 325 MG TAB PO PRN ×2 (15:39→20:20)
--- NOTE | 2017-06-28 16:23 | CONS ---
Date/Time of Note Date/Time of Note DATE: 06/28/17 TIME: 16:21 Assessment/Plan Assessment/Plan Additional Assessment/Plan Hypertension urgency Severe cardiomyopathy with ejection fraction 25% Acute decompensated systolic congestive heart failure Acute blood loss anemia status post blood transfusion Alcohol abuse Mildly elevated troponin -Increase dose of Cozaar to 50 mg twice daily, increase Coreg to 3 times daily dosing. No antiplatelet therapy given recurrent anemia requiring blood transfusion. Maintain potassium above 4.0 and magnesium above 2.0. Consultation Date/Type/Reason Admit Date/Time Jun 25, 2017 at 07:38 Initial Consult Date 06/26/17 Type of Consultation: cv Referring Provider: ASHISH US 24 HR Interval Summary Free Text/Dictation Denies shortness of breath, chest pain, did have chest pain last night with coughing and with different positions. Exam/Review of Systems Vital Signs Vitals Vital Signs Date Time Temp Pulse Resp B/P Pulse Ox O2 Delivery O2 Flow Rate FiO2 06/28/17 16:01 97.8 73 18 173/92 97 06/28/17 08:00 Nasal Cannula 2.0 06/25/17 07:41 60 Intake and Output 06/27/17 06/27/17 06/28/17 15:00 23:00 07:00 Intake Total 850 ml 200 ml Output Total 1800 ml 1700 ml Balance -950 ml -1500 ml Exam No apparent distress Constitutional: alert, oriented Head: normocephalic Respiratory: other (Coarse breath sounds bilaterally, no wheezing) Cardiovascular: other (S1-S2 heard), regular rate and rhythm Gastrointestinal: bowel sounds, non-tender, soft Extremities: edema (Trace) Results Result Diagram: 06/28/17 0656 06/28/17 0656 Results 24 hrs Laboratory Tests Test 06/28/17 06:56 White Blood Count 9.7 Red Blood Count 3.61 L Hemoglobin 8.1 L Hematocrit 26.6 L Mean Corpuscular Volume 73.7 L Mean Corpuscular Hemoglobin 22.4 L Mean Corpuscular Hemoglobin Concent 30.5 L Red Cell Distribution Width 25.3 H Platelet Count 332 Mean Platelet Volume 9.7 Neutrophils % 65.5 Lymphocytes % 18.9 Monocytes % 13.2 H Eosinophils % 1.5 Basophils % 0.4 Nucleated Red Blood Cells % 0.0 Neutrophils # 6.4 Lymphocytes # 1.8 Monocytes # 1.3 H Eosinophils # 0.2 Basophils # 0.0 Nucleated Red Blood Cells # 0.0 Sodium Level 135 Potassium Level 3.6 Chloride Level 98 Carbon Dioxide Level 31 Anion Gap 10 Blood Urea Nitrogen 12 Creatinine 1.37 H Glucose Level 92 Calcium Level 8.8 Phosphorus Level 3.9 Magnesium Level 1.6 L Medications Medications Current Medications Sucralfate (Carafate) 1 gm Q6 PO Last administered on 06/28/17 08:42; Admin Dose 1 GM; Start 06/25/17 at 12:00 Ondansetron HCl (Zofran Inj) 4 mg Q6H PRN IV NAUSEA AND/OR VOMITING; Start at 09:30 Nitroglycerin (Nitroglycerin (Sl Tab) 0.4 Mg) 1 tab Q5M PRN SL CHEST PAIN Last administered on 06/27/17 22:35; Admin Dose 1 TAB; Start 06/25/17 at 09:30 Acetaminophen (Tylenol Tab) 650 mg Q6H PRN PO PAIN LEVEL 1-3 OR FEVER Last administered on 06/28/17 15:39; Admin Dose 650 MG; Start 06/25/17 at 09:30 Acetaminophen/ Hydrocodone Bitart ([place] (5/325)) 1 tab Q6H PRN PO PAIN LEVEL 4 -6 Last administered on 06/26/17 05:07; Admin Dose 1 TAB; Start 06/25/17 at 09:30 Morphine Sulfate (morphine) 2 mg Q4H PRN IV PAIN LEVEL 7-10 Last administered on 06/27/17 22:36; Admin Dose 2 MG; Start 06/25/17 at 09:30 Docusate Sodium (Colace) 100 mg Q12H PRN PO CONSTIPATION; Start 06/25/17 at 09 :30 Magnesium Hydroxide (Milk Of Mag) 30 ml DAILY PRN PO CONSTIPATION; Start 06/25 at 09:30 Bisacodyl (Dulcolax Supp) 10 mg DAILY PRN [place] CONSTIPATION; Start 06/25/17 at 09:30 Isosorbide Dinitrate (Isordil) 10 mg TID PO Last administered on 06/28/17 12: 11; Admin Dose 10 MG; Start 06/25/17 at 09:30 Folic Acid (Folic Acid) 1 mg DAILY PO Last administered on 06/28/17 08:40; Admin Dose 1 MG; Start 06/25/17 at 14:00 Multivitamins Therapeutic (Theragran) 1 tab DAILY PO Last administered on 06/28 08:40; Admin Dose 1 TAB; Start 06/25/17 at 14:00 Thiamine HCl (Vitamin B1) 100 mg DAILY PO Last administered on 06/28/17 08:40 ; Admin Dose 100 MG; Start 06/25/17 at 14:00 Lorazepam (Ativan) 1 mg Q6H PRN IV CONTROL WITHDRAWAL SYMPTOMS Last administered on 06/28/17 01:42; Admin Dose 1 MG; Start 06/25/17 at 14:00 Nicotine (Nicoderm 14 Mg/ 24hr) 1 patch DAILY TRANSDERM Last administered on 08:40; Admin Dose 1 PATCH; Start 06/25/17 at 14:00 Ferrous Sulfate (Ferrous Sulfate (Ec)) 325 mg BID PO Last administered on 06/28 08:40; Admin Dose 325 MG; Start 06/26/17 at 09:00 Losartan Potassium (Cozaar) 25 mg BID PO Last administered on 06/28/17 08:41 ; Admin Dose 25 MG; Start 06/27/17 at 01:00 Hydralazine HCl (Apresoline) 10 mg Q6H PRN IV high blood pressure Last administered on 06/28/17 12:12; Admin Dose 10 MG; Start 06/27/17 at 01:00 Carvedilol (Coreg) 6.25 mg BID PO Last administered on 06/28/17 08:42; Admin Dose 6.25 MG; Start 06/27/17 at 21:00 Atorvastatin Calcium (Lipitor) 40 mg HS PO Last administered on 06/27/17 20: 34; Admin Dose 40 MG; Start 06/27/17 at 21:00 Pantoprazole (Protonix Iv) 40 mg BID@06,18 IV ; Start 06/28/17 at 18:00 David Martinez DO Jun 28, 2017 16:23
[2017-06-28] MEDS ORDERED: LIDOCAINE 2% (SDV) 5 ML INJ ONE ×2 (18:19→18:20)
[2017-06-28] MEDS ORDERED: MIDAZOLAM 1 MG/ML 2 ML INJ ONE (18:19)
[2017-06-28] MEDS ORDERED: FENTAnyl 50 MCG/ML VIAL ONE (18:19)
[2017-06-28] MEDS ORDERED: PROPOFOL 20 ML ONE (18:19)
--- NOTE | 2017-06-28 18:26 | HPN ---
Date/Time of Note Date/Time of Note DATE: 06/28/17 TIME: 18:25 Interval H&P Admission Note Pt. seen H&P reviewed: No system changes PRUDENCE RUFFIN MD Jun 28, 2017 18:26
--- NOTE | 2017-06-28 18:39 | OPPN ---
Date/Time of Note Date/Time of Note DATE: 06/28/17 TIME: 18:35 Proc Note GI Procedure Date 06/28/17 Indication: other (Anemia/GI bleeding) Pre-procedure Diagnosis Anemia/GI bleeding Post-procedure Diagnosis Impression: Severe nodular gastritis. Rule out H. pylori infection. Biopsies obtained Severe duodenitis. Otherwise normal EGD. Plan: Continue PPIs plus Carafate Review pathology as soon as available Advance diet as tolerated . Procedure Performed: Other (EGD plus biopsies) Surgeon PRUDENCE RUFFIN MD See signature line Assembler Garment Form none Anesthesia Type: MAC Anesthesiologist: LEANN YANG DO Tourniquet Time none EBL none Transfusion required none Biopsy 1: Gastric body and antrum/rule out H. pylori infection Grafts/Implants none Tubes/Drains none Complication(s) none Disposition: PACU Procedure Description Preoperative Diagnosis: After informed consent, with the patient/relatives understanding the procedure, its indications, potential risks and complications, including but not limited to : allergic reaction, bleeding, perforation or infection, and after all pertinent questions were answered to the patients satisfaction, the patient/ relatives signed witnessed informed consent. Following this, premedication was administered slowly IV push under careful cardiovascular and respiratory monitoring with pulse oximetry, automatic blood pressure, and cna hha. Once the sedative effect was achieved the patient was place in the left lateral decubitus, the panendoscope was introduced and advanced under visual control. Careful examination of the upper gastrointestinal tract, both on insertion as well as withdrawal of the instrument disclosing the following findings: ESOPHAGUS: the mucosa of the entire esophagus was carefully examined and showed the following findings: the mucosa appears within normal limits. There is no evidence of esophagitis, varices, neoplasm, or stricture. No Hiatal Hernia identified. STOMACH: Upon entrance to the stomach air was insufflated, the gastric peterson distended normally. The mucosa of the fundus, body and antrum of the stomach was carefully examined both head-on and on retroflexion, and showed the following findings: There is severe erythema edema and nodularity of the entire stomach. Biopsies were obtained to rule out H. pylori infection. Otherwise the mucosa appears within normal limits with no abnormalities. There is no evidence of ulcers or neoplasm. PYLORUS: The pylorus was carefully examined and showed the following findings: the pylorus appears patent and within normal limits, with no evidence of gastric outlet obstruction. DUODENUM: The duodenal mucosa was carefully examined in the duodenal bulb as well as the second portion of the duodenum and showed the following findings: There is severe erythema edema of the mucosa of the duodenal bulb. No definitive ulceration is noted. Otherwise the mucosa appears unremarkable with no evidence of ulcer or neoplasm. Copies To: CC: PRUDENCE RUFFIN MD, MORDO MD Jun 28, 2017 18:39
[2017-06-28] MEDS: PANTOPRAZOLE 40 MG INJ IV SCH (20:05)
[2017-06-28] MEDS: ATORVASTATIN 40 MG TAB PO SCH (20:06)
[2017-06-28] MEDS: SPIRONOLACTONE 25 MG TAB PO SCH (20:08)
[2017-06-28] MEDS: LOSARTAN 50 MG TAB PO SCH (20:20)
--- NOTE | 2017-06-28 20:22 | RADRPT ---
PROCEDURE: XR Chest. CLINICAL INDICATION: Pulmonary edema. TECHNIQUE: Chest x-ray, single view. COMPARISON: 06/25/2017. FINDINGS: The heart is enlarged and unchanged in size. Near complete resolution of hazy patchy perihilar pare nchymal opacification is now observed. Mild residual opacification is seen within the left upper nain g. Pulmonary vascularity is within normal limits. Thoracic aortic atherosclerotic calcification is o bserved. Skeletal structures and upper abdomen are unremarkable. IMPRESSION: Cardiomegaly and thoracic aortic atherosclerosis. Near complete resolution of hazy patchy perihilar parenchymal opacification with mild residual opaci fication within the left upper lung. RPTAT: HLST .Fiona Torres MD, MD Date Time Electronically viewed and signed by .Fiona Torres MD, on 06/28/2017 20:22 .T/
[2017-06-29] VITALS (15 sets, daily range): BP systolic 120–188; BP diastolic 56–98; PULSE 50–80; RESP 17–20
[2017-06-29] MEDS: LORAZEPAM 2 MG INJ IV PRN (03:45)
[2017-06-29] MEDS: hydrALAzine 20 MG INJ IV PRN ×2 (03:50→21:11)
[2017-06-29] MEDS: SPIRONOLACTONE 25 MG TAB PO SCH ×2 (06:43→17:53)
[2017-06-29] MEDS: PANTOPRAZOLE 40 MG INJ IV SCH (06:43)
[2017-06-29] MEDS: SUCRALFATE 1 GM TAB PO SCH ×4 (06:43→17:53)
[2017-06-29] MEDS: FUROSEMIDE 40 MG INJ IV SCH ×2 (06:44→17:53)
[2017-06-29] MEDS: THIAMINE 100 MG TAB PO SCH (08:23)
[2017-06-29] MEDS: FERROUS SULFATE (EC) 325 MG TAB PO SCH ×2 (08:23→20:59)
[2017-06-29] MEDS: MULTIVITAMINS THERAPEUTIC TAB PO SCH (08:24)
[2017-06-29] MEDS: LOSARTAN 50 MG TAB PO SCH ×2 (08:24→21:02)
[2017-06-29] MEDS: ISOSORBIDE DINITRATE 10 MG TAB PO SCH ×3 (08:24→21:01)
[2017-06-29] MEDS: FOLIC ACID 1 MG TAB PO SCH (08:24)
[2017-06-29 08:25] LABS: ABNORMAL IP MESSAGE 1; BASOPHILS % 0.4 % (0.0-2.0); EOSINOPHILS # 0.2 10^3/ul (0.0-0.5); EOSINOPHILS % 2.3 % (0.0-7.0); HEMATOCRIT 31.5 % (42.0-52.0); HEMOGLOBIN 9.8 g/dl (14.0-18.0); LYMPHOCYTES # 1.6 10^3/ul (0.8-2.9); LYMPHOCYTES % 17.5 % (15.0-51.0); MEAN CORPUSCULAR HEMOGLOBIN 23.2 pg (29.0-33.0); MEAN CORPUSCULAR HGB CONC 31.1 g/dl (32.0-37.0); MEAN CORPUSCULAR VOLUME 74.5 fl (82.0-101.0); MEAN PLATELET VOLUME 10.2 fl (7.4-10.4); MONOCYTE # 1.3 10^3/ul (0.3-0.9); MONOCYTES % 14.6 % (0.0-11.0); NEUTROPHIL # 5.8 10^3/ul (1.6-7.5); NEUTROPHILS % 64.9 % (39.0-77.0); PLATELET COUNT 363 10^3/UL (140-415); POSITIVE DIFF @See below; RED BLOOD COUNT 4.23 10^6/ul (4.70-6.10)
[2017-06-29] MEDS: NICOTINE (14 MG/24 HR) PATCH TRANSDERM SCH (08:25)
[2017-06-29 08:45] LABS: CALCIUM 8.7 mg/dl (8.4-10.2); CREATININE 1.37 mg/dl (0.61-1.24); POTASSIUM 3.4 mmol/L (3.5-5.1)
[2017-06-29 08:46] LABS: MAGNESIUM 1.6 mg/dl (1.7-2.5); PHOSPHORUS 4.1 mg/dl (2.5-4.9)
[2017-06-29] MEDS ORDERED: POTASSIUM CHLORIDE (SR) 20 MEQ TAB PO STA ×2 (10:06→12:01)
--- NOTE | 2017-06-29 10:09 | CONS ---
Date/Time of Note Date/Time of Note DATE: 06/29/17 TIME: 10:08 Assessment/Plan Assessment/Plan Additional Assessment/Plan Hypertension urgency Severe cardiomyopathy with ejection fraction 25% Acute decompensated systolic congestive heart failure Acute blood loss anemia status post blood transfusion Alcohol abuse Mildly elevated troponin -Patient status post EGD. Blood pressure trend overall slightly improved, with transition to twice daily Coreg with increased dose. Chest x-ray yesterday improved, would switch to p.o. Lasix tomorrow. Supplement potassium to maintain above 4.0 and magnesium above 2.0. Consultation Date/Type/Reason Admit Date/Time Jun 25, 2017 at 07:38 Initial Consult Date 06/26/17 Type of Consultation: cv Referring Provider: ASHISH US 24 HR Interval Summary Free Text/Dictation Denies chest pain, shortness of breath, overall feeling better Exam/Review of Systems Vital Signs Vitals Vital Signs Date Time Temp Pulse Resp B/P Pulse Ox O2 Delivery O2 Flow Rate FiO2 06/29/17 09:52 80 134/80 06/29/17 07:55 98.5 18 97 06/28/17 19:00 Room Air 06/28/17 08:00 2.0 06/25/17 07:41 60 Intake and Output 06/28/17 06/28/17 06/29/17 15:00 23:00 07:00 Intake Total 425 ml 400 ml Output Total 1700 ml 1800 ml Balance -1275 ml -1400 ml Exam No apparent distress Constitutional: alert, oriented Head: normocephalic Respiratory: other (Coarse breath sounds bilaterally, no wheezing) Cardiovascular: other (S1-S2 heard), regular rate and rhythm Gastrointestinal: bowel sounds, non-tender, soft Extremities: edema (Trace) Results Result Diagram: 06/29/17 0745 06/29/17 0745 Results 24 hrs Laboratory Tests Test 06/29/17 07:45 White Blood Count 9.0 Red Blood Count 4.23 L Hemoglobin 9.8 #L Hematocrit 31.5 L Mean Corpuscular Volume 74.5 L Mean Corpuscular Hemoglobin 23.2 L Mean Corpuscular Hemoglobin Concent 31.1 L Red Cell Distribution Width 26.0 H Platelet Count 363 Mean Platelet Volume 10.2 Neutrophils % 64.9 Lymphocytes % 17.5 Monocytes % 14.6 H Eosinophils % 2.3 Basophils % 0.4 Nucleated Red Blood Cells % 0.0 Neutrophils # 5.8 Lymphocytes # 1.6 Monocytes # 1.3 H Eosinophils # 0.2 Basophils # 0.0 Nucleated Red Blood Cells # 0.0 Sodium Level 134 L Potassium Level 3.4 L Chloride Level 97 Carbon Dioxide Level 29 Anion Gap 11 Blood Urea Nitrogen 11 Creatinine 1.37 H Glucose Level 90 Calcium Level 8.7 Phosphorus Level 4.1 Magnesium Level 1.6 L Medications Medications Current Medications Sucralfate (Carafate) 1 gm Q6 PO Last administered on 06/29/17 06:43; Admin Dose 1 GM; Start 06/25/17 at 12:00 Ondansetron HCl (Zofran Inj) 4 mg Q6H PRN IV NAUSEA AND/OR VOMITING; Start at 09:30 Nitroglycerin (Nitroglycerin (Sl Tab) 0.4 Mg) 1 tab Q5M PRN SL CHEST PAIN Last administered on 06/27/17 22:35; Admin Dose 1 TAB; Start 06/25/17 at 09:30 Acetaminophen (Tylenol Tab) 650 mg Q6H PRN PO PAIN LEVEL 1-3 OR FEVER Last administered on 06/28/17 20:20; Admin Dose 650 MG; Start 06/25/17 at 09:30 Acetaminophen/ Hydrocodone Bitart ([place] (5/325)) 1 tab Q6H PRN PO PAIN LEVEL 4 -6 Last administered on 06/26/17 05:07; Admin Dose 1 TAB; Start 06/25/17 at 09:30 Morphine Sulfate (morphine) 2 mg Q4H PRN IV PAIN LEVEL 7-10 Last administered on 06/27/17 22:36; Admin Dose 2 MG; Start 06/25/17 at 09:30 Docusate Sodium (Colace) 100 mg Q12H PRN PO CONSTIPATION; Start 06/25/17 at 09 :30 Magnesium Hydroxide (Milk Of Mag) 30 ml DAILY PRN PO CONSTIPATION; Start 06/25 at 09:30 Bisacodyl (Dulcolax Supp) 10 mg DAILY PRN [place] CONSTIPATION; Start 06/25/17 at 09:30 Isosorbide Dinitrate (Isordil) 10 mg TID PO Last administered on 06/29/17 08: 24; Admin Dose 10 MG; Start 06/25/17 at 09:30 Folic Acid (Folic Acid) 1 mg DAILY PO Last administered on 06/29/17 08:24; Admin Dose 1 MG; Start 06/25/17 at 14:00 Multivitamins Therapeutic (Theragran) 1 tab DAILY PO Last administered on 06/29 08:24; Admin Dose 1 TAB; Start 06/25/17 at 14:00 Thiamine HCl (Vitamin B1) 100 mg DAILY PO Last administered on 06/29/17 08:23 ; Admin Dose 100 MG; Start 06/25/17 at 14:00 Lorazepam (Ativan) 1 mg Q6H PRN IV CONTROL WITHDRAWAL SYMPTOMS Last administered on 06/29/17 03:45; Admin Dose 1 MG; Start 06/25/17 at 14:00 Nicotine (Nicoderm 14 Mg/ 24hr) 1 patch DAILY TRANSDERM Last administered on 08:25; Admin Dose 1 PATCH; Start 06/25/17 at 14:00 Ferrous Sulfate (Ferrous Sulfate (Ec)) 325 mg BID PO Last administered on 06/29 08:23; Admin Dose 325 MG; Start 06/26/17 at 09:00 Hydralazine HCl (Apresoline) 10 mg Q6H PRN IV high blood pressure Last administered on 06/29/17 03:50; Admin Dose 10 MG; Start 06/27/17 at 01:00 Atorvastatin Calcium (Lipitor) 40 mg HS PO Last administered on 06/28/17 20: 06; Admin Dose 40 MG; Start 06/27/17 at 21:00 Pantoprazole (Protonix Iv) 40 mg BID@,18 IV Last administered on 06/29/17 06:43; Admin Dose 40 MG; Start 06/28/17 at 18:00 Carvedilol (Coreg) 6.25 mg TID PO Last administered on 06/29/17 08:24; Admin Dose 6.25 MG; Start 06/28/17 at 21:00 Losartan Potassium (Cozaar) 50 mg BID PO Last administered on 06/29/17 08:24 ; Admin Dose 50 MG; Start 06/28/17 at 21:00 David Martinez DO Jun 29, 2017 10:09
[2017-06-29] MEDS ORDERED: MAGNESIUM SULFATE 3 GM in SOD CHLORIDE 0.9% 100 ML IVPB ONE (11:00)
[2017-06-29] MEDS ORDERED: MAGNESIUM SULFATE 4 GM/100 ML 100 ML IVPB ONE (12:30)
--- NOTE | 2017-06-29 12:50 | PN ---
Date/Time of Note Date/Time of Note DATE: 06/29/17 TIME: 12:10 Assessment/Plan VTE Prophylaxis VTE Prophylaxis Intervention: SCD's Lines/Catheters IV [facility]ter [facility]from [facility] [place] [facility] Urinary Cath still in place: No Assessment/Plan Assessment/Plan 62-year-old male with: 1. Cardiomyopathy, pulmonary edema, CHF exacerbation with respiratory distress , echocardiogram pending to evaluate ejection fraction with cardiomyopathy. Improved respiratory status, on RA at times. Repeat EKG yesterday with diffuse T wave abnormalities. 2D echocardiogram with 25% EF. Continue diuresis with Lasix and Aldactone. Repeat chest x-ray last night with near resolution of pulmonary edema. Slightly elevated cardiac enzymes, keep trending down. Continue diuresis. Followed by cardiology so far medical treatment. 2. Slightly elevated troponins, in setting of anemia, CHF exacerbation. Patient also had an episode of nonsustained V. tach 3 beats a couple of nights ago and known cardiomyopathy with ejection fraction of 25%. And EKG with some T-wave inversion yesterday but troponin trended down. We will discuss with Dr. Martinez to see if patient needs additional cardiology workup versus medical management for cardiomyopathy. S/p 1 unit of PRBC transfusion yesterday and hemoglobin up to 9. Repleting K and mag today. Cardiology following and optimizing medical management for now. 3. Microcytic chronic anemia, acute exacerbation, questionable ongoing slow GI bleed or intermittent upper GI bleed versus lower GI bleed. Patient did have 2 EGDs done few months ago with findings of gastritis for which he has been treated as he was H pylori positive. He was also advised to stop alcohol use but that he has not done so so far. Hemoglobin stable 9.2, per Cardio needs close to 9, Change Protonix back to po twice daily with Carafate for known gastritis and gastric ulcers. 4. Hypertension: Uncontrolled and untreated. Patient on Coreg, continue Isordil and Cozaar added Patient with cardiomyopathy and EF 25% Appreciate recommendations from cardiology, medications being titrated if blood pressure tolerates. 5. Reported seizure disorder: Monitor, patient has been off medication for 2 years. No seizures 6. Tobacco use: We will offer nicotine patch, he has been advised to quit 7. Alcohol abuse: Counseled to quit, patient denies any history of alcohol withdrawal, he claims that he can go days without drinking. Will monitor closely, Ativan as needed. No signs of alcohol withdrawal. Continue on multivitamin, folate and thiamine. 8. Gastritis, gastric ulcers on previous EGD, status post EGD yesterday with findings of severe nodular gastritis, severe duodenitis, possible H pylori infection, biopsies pending. Appreciate recommendations from gastroenterology, continue PPIs and Carafate. Hemoglobin much better today, per cardiology to keep above 9 Prophylaxis: SCDs to lower extremity for DVT prophylaxis, Protonix known gastritis Disposition: Continue to monitor on telemetry, given positive troponins, patient to remain at [facility] with cardiology following. Discharge planned for tomorrow if no further arrhythmia or cardiology intervention, and if okay per cardiology. Subjective 24 Hr Interval Summary Free Text/Dictation Patient much improved, on room air, diuresing well, status post EGD yesterday. Hemoglobin of 9.8. No shortness of breath, no orthopnea. She is ambulating short distances with no complaints, he will ambulate today more. All medications being changed to oral, discharge planning within 24 hours. Exam/Review of Systems Vital Signs Vitals Vital Signs Date Time Temp Pulse Resp B/P Pulse Ox O2 Delivery O2 Flow Rate FiO2 06/29/17 09:52 80 134/80 06/29/17 07:55 98.5 18 97 06/28/17 19:00 Room Air 06/28/17 08:00 2.0 06/25/17 07:41 60 Intake and Output 06/28/17 06/28/17 06/29/17 15:00 23:00 07:00 Intake Total 425 ml 400 ml Output Total 1700 ml 1800 ml Balance -1275 ml -1400 ml Exam Constitutional: alert, oriented, well developed Cardiovascular: nl pulses, regular rate and rhythm Gastrointestinal: non-tender, soft Musculoskeletal: nl extremities to inspection Extremities: normal pulses, other (No edema, resolved, no clubbing or cyanosis) Neurological: 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 INSTRU[employer] II-XII intact, nl mental status, nl speech, nl strength Results Result Diagram: 06/29/1745 06/29/1745 Results 24 hrs Laboratory Tests Test 06/29/17 07:45 White Blood Count 9.0 Red Blood Count 4.23 L Hemoglobin 9.8 #L Hematocrit 31.5 L Mean Corpuscular Volume 74.5 L Mean Corpuscular Hemoglobin 23.2 L Mean Corpuscular Hemoglobin Concent 31.1 L Red Cell Distribution Width 26.0 H Platelet Count 363 Mean Platelet Volume 10.2 Neutrophils % 64.9 Lymphocytes % 17.5 Monocytes % 14.6 H Eosinophils % 2.3 Basophils % 0.4 Nucleated Red Blood Cells % 0.0 Neutrophils # 5.8 Lymphocytes # 1.6 Monocytes # 1.3 H Eosinophils # 0.2 Basophils # 0.0 Nucleated Red Blood Cells # 0.0 Sodium Level 134 L Potassium Level 3.4 L Chloride Level 97 Carbon Dioxide Level 29 Anion Gap 11 Blood Urea Nitrogen 11 Creatinine 1.37 H Glucose Level 90 Calcium Level 8.7 Phosphorus Level 4.1 Magnesium Level 1.6 L Medications Medications Current Medications Sucralfate (Carafate) 1 gm Q6 PO Last administered on 06/29/17 11:44; Admin Dose 1 GM; Start 06/25/17 at 12:00 Ondansetron HCl (Zofran Inj) 4 mg Q6H PRN IV NAUSEA AND/OR VOMITING; Start at 09:30 Nitroglycerin (Nitroglycerin (Sl Tab) 0.4 Mg) 1 tab Q5M PRN SL CHEST PAIN Last administered on 06/27/17 22:35; Admin Dose 1 TAB; Start 06/25/17 at 09:30 Acetaminophen (Tylenol Tab) 650 mg Q6H PRN PO PAIN LEVEL 1-3 OR FEVER Last administered on 06/28/17 20:20; Admin Dose 650 MG; Start 06/25/17 at 09:30 Acetaminophen/ Hydrocodone Bitart ([place] (5/325)) 1 tab Q6H PRN PO PAIN LEVEL 4 -6 Last administered on 06/26/17 05:07; Admin Dose 1 TAB; Start 06/25/17 at 09:30 Morphine Sulfate (morphine) 2 mg Q4H PRN IV PAIN LEVEL 7-10 Last administered on 06/27/17 22:36; Admin Dose 2 MG; Start 06/25/17 at 09:30 Docusate Sodium (Colace) 100 mg Q12H PRN PO CONSTIPATION; Start 06/25/17 at 09 :30 Magnesium Hydroxide (Milk Of Mag) 30 ml DAILY PRN PO CONSTIPATION; Start 06/25 at 09:30 Bisacodyl (Dulcolax Supp) 10 mg DAILY PRN [place] CONSTIPATION; Start 06/25/17 at 09:30 Isosorbide Dinitrate (Isordil) 10 mg TID PO Last administered on 06/29/17 08: 24; Admin Dose 10 MG; Start 06/25/17 at 09:30 Folic Acid (Folic Acid) 1 mg DAILY PO Last administered on 06/29/17 08:24; Admin Dose 1 MG; Start 06/25/17 at 14:00 Multivitamins Therapeutic (Theragran) 1 tab DAILY PO Last administered on 06/29 08:24; Admin Dose 1 TAB; Start 06/25/17 at 14:00 Thiamine HCl (Vitamin B1) 100 mg DAILY PO Last administered on 06/29/17 08:23 ; Admin Dose 100 MG; Start 06/25/17 at 14:00 Lorazepam (Ativan) 1 mg Q6H PRN IV CONTROL WITHDRAWAL SYMPTOMS Last administered on 06/29/17 03:45; Admin Dose 1 MG; Start 06/25/17 at 14:00 Nicotine (Nicoderm 14 Mg/ 24hr) 1 patch DAILY TRANSDERM Last administered on 08:25; Admin Dose 1 PATCH; Start 06/25/17 at 14:00 Ferrous Sulfate (Ferrous Sulfate (Ec)) 325 mg BID PO Last administered on 06/29 08:23; Admin Dose 325 MG; Start 06/26/17 at 09:00 Hydralazine HCl (Apresoline) 10 mg Q6H PRN IV high blood pressure Last administered on 06/29/17 03:50; Admin Dose 10 MG; Start 06/27/17 at 01:00 Atorvastatin Calcium (Lipitor) 40 mg HS PO Last administered on 06/28/17 20: 06; Admin Dose 40 MG; Start 06/27/17 at 21:00 Pantoprazole (Protonix Iv) 40 mg BID@,18 IV Last administered on 06/29/17 06:43; Admin Dose 40 MG; Start 06/28/17 at 18:00 Losartan Potassium (Cozaar) 50 mg BID PO Last administered on 06/29/17 08:24 ; Admin Dose 50 MG; Start 06/28/17 at 21:00 Carvedilol 12.5 mg 12.5 mg BID PO ; Start 06/29/17 at 21:00 Magnesium Sulfate/ Sodium Chloride (Magnesium Sulfate/NS) 106 ml @ 35.333 mls/ hr ONCE ONCE IVPB Last administered on 06/29/17t 11:44; Admin Dose 35.333 MLS /HR; Start 06/29/17 at 11:00; Stop 06/29/17 at 13:59 Furosemide 40 mg 40 mg DAILY PO ; Start 06/30/17 at 09:00 Magnesium Sulfate (Magnesium Sulfate 4 Gm/100 ml) 100 ml @ 25 mls/hr ONCE ONCE IVPB ; Start 06/29/17 at 12:30; Stop 06/29/17 at 16:29; Status UNV Procedures Procedures PROCEDURE: XR Chest. CLINICAL INDICATION: Pulmonary edema. TECHNIQUE: Chest x-ray, single view. COMPARISON: 06/25/2017. FINDINGS: The heart is enlarged and unchanged in size. Near complete resolution of hazy patchy perihilar parenchymal opacification is now observed. Mild residual opacification is seen within the left upper lung. Pulmonary vascularity is within normal limits. Thoracic aortic atherosclerotic calcification is observed. Skeletal structures and upper abdomen are unremarkable. IMPRESSION: Cardiomegaly and thoracic aortic atherosclerosis. Near complete resolution of hazy patchy perihilar parenchymal opacification with mild residual opacification within the left upper lung. ASHISH US Jun 29, 2017 12:22
--- NOTE | 2017-06-29 17:07 | PN ---
Date/Time of Note Date/Time of Note DATE: 06/29/17 TIME: 17:00 Assessment/Plan VTE Prophylaxis VTE Prophylaxis Intervention: ambulation Lines/Catheters [facility] Saline Lock Urinary Cath still in place: No Assessment/Plan Chief Complaint/Hosp Course Assessment: Anemia Nodular gastritis Severe duodenitis Cardiomyopathy EF 25% History of Seizures- off meds x2 years, no seizures reported Plan: Continue PPIs plus Carafate Review pathology as soon as available Continue 2gm Na diet Continue to monitor HGB/HCT Continue current regimen Pt seen in collaboration with Dr. Salazar Subjective: Course reviewed with nursing staff Patient interviewed and examined All labs, imaging and other results reviewed The patient is doing well status post EGD Discussed results of visual findings on EGD, biopsy still pending Patient is tolerating diet well feels like he is doing well from GI point of view Problems: Exam/Review of Systems Vital Signs Vitals Vital Signs Date Time Temp Pulse Resp B/P Pulse Ox O2 Delivery O2 Flow Rate FiO2 06/29/17 16:07 98.5 67 18 150/89 95 06/28/17 19:00 Room Air 06/28/17 08:00 2.0 06/25/17 07:41 60 Intake and Output 06/28/17 06/28/17 06/29/17 15:00 23:00 07:00 Intake Total 425 ml 400 ml Output Total 1700 ml 1800 ml Balance -1275 ml -1400 ml Results Result Diagram: 06/29/17 0745 06/29/17 0745 Results 24 hrs Laboratory Tests Test 06/29/17 07:45 White Blood Count 9.0 Red Blood Count 4.23 L Hemoglobin 9.8 #L Hematocrit 31.5 L Mean Corpuscular Volume 74.5 L Mean Corpuscular Hemoglobin 23.2 L Mean Corpuscular Hemoglobin Concent 31.1 L Red Cell Distribution Width 26.0 H Platelet Count 363 Mean Platelet Volume 10.2 Neutrophils % 64.9 Lymphocytes % 17.5 Monocytes % 14.6 H Eosinophils % 2.3 Basophils % 0.4 Nucleated Red Blood Cells % 0.0 Neutrophils # 5.8 Lymphocytes # 1.6 Monocytes # 1.3 H Eosinophils # 0.2 Basophils # 0.0 Nucleated Red Blood Cells # 0.0 Sodium Level 134 L Potassium Level 3.4 L Chloride Level 97 Carbon Dioxide Level 29 Anion Gap 11 Blood Urea Nitrogen 11 Creatinine 1.37 H Glucose Level 90 Calcium Level 8.7 Phosphorus Level 4.1 Magnesium Level 1.6 L Medications Medications Current Medications Sucralfate (Carafate) 1 gm Q6 PO Last administered on 06/29/17 11:44; Admin Dose 1 GM; Start 06/25/17 at 12:00 Ondansetron HCl (Zofran Inj) 4 mg Q6H PRN IV NAUSEA AND/OR VOMITING; Start at 09:30 Nitroglycerin (Nitroglycerin (Sl Tab) 0.4 Mg) 1 tab Q5M PRN SL CHEST PAIN Last administered on 06/27/17 22:35; Admin Dose 1 TAB; Start 06/25/17 at 09:30 Acetaminophen (Tylenol Tab) 650 mg Q6H PRN PO PAIN LEVEL 1-3 OR FEVER Last administered on 06/28/17 20:20; Admin Dose 650 MG; Start 06/25/17 at 09:30 Acetaminophen/ Hydrocodone Bitart ([place] (5/325)) 1 tab Q6H PRN PO PAIN LEVEL 4 -6 Last administered on 06/26/17 05:07; Admin Dose 1 TAB; Start 06/25/17 at 09:30 Morphine Sulfate (morphine) 2 mg Q4H PRN IV PAIN LEVEL 7-10 Last administered on 06/27/17 22:36; Admin Dose 2 MG; Start 06/25/17 at 09:30 Docusate Sodium (Colace) 100 mg Q12H PRN PO CONSTIPATION; Start 06/25/17 at 09 :30 Magnesium Hydroxide (Milk Of Mag) 30 ml DAILY PRN PO CONSTIPATION; Start 06/25 at 09:30 Bisacodyl (Dulcolax Supp) 10 mg DAILY PRN [place] CONSTIPATION; Start 06/25/17 at 09:30 Isosorbide Dinitrate (Isordil) 10 mg TID PO Last administered on 06/29/17 12: 22; Admin Dose 10 MG; Start 06/25/17 at 09:30 Folic Acid (Folic Acid) 1 mg DAILY PO Last administered on 06/29/17 08:24; Admin Dose 1 MG; Start 06/25/17 at 14:00 Multivitamins Therapeutic (Theragran) 1 tab DAILY PO Last administered on 06/29 08:24; Admin Dose 1 TAB; Start 06/25/17 at 14:00 Thiamine HCl (Vitamin B1) 100 mg DAILY PO Last administered on 06/29/17 08:23 ; Admin Dose 100 MG; Start 06/25/17 at 14:00 Lorazepam (Ativan) 1 mg Q6H PRN IV CONTROL WITHDRAWAL SYMPTOMS Last administered on 06/29/17 03:45; Admin Dose 1 MG; Start 06/25/17 at 14:00 Nicotine (Nicoderm 14 Mg/ 24hr) 1 patch DAILY TRANSDERM Last administered on 08:25; Admin Dose 1 PATCH; Start 06/25/17 at 14:00 Ferrous Sulfate (Ferrous Sulfate (Ec)) 325 mg BID PO Last administered on 06/29 08:23; Admin Dose 325 MG; Start 06/26/17 at 09:00 Hydralazine HCl (Apresoline) 10 mg Q6H PRN IV high blood pressure Last administered on 06/29/17 03:50; Admin Dose 10 MG; Start 06/27/17 at 01:00 Atorvastatin Calcium (Lipitor) 40 mg HS PO Last administered on 06/28/17 20: 06; Admin Dose 40 MG; Start 06/27/17 at 21:00 Losartan Potassium (Cozaar) 50 mg BID PO Last administered on 06/29/17 08:24 ; Admin Dose 50 MG; Start 06/28/17 at 21:00 Carvedilol (Coreg) 12.5 mg BID PO ; Start 06/29/17 at 21:00 Furosemide (Lasix) 40 mg DAILY PO ; Start 06/30/17 at 09:00 Pantoprazole (Protonix Tab) 40 mg BID@,18 PO ; Start 06/29/17 at 18:00 SAILAJA ESCUDERO Jun 29, 2017 17:07
[2017-06-29] MEDS: PANTOPRAZOLE (EC) 40 MG TAB PO SCH (17:53)
[2017-06-29] MEDS: ATORVASTATIN 40 MG TAB PO SCH (20:59)
[2017-06-30] VITALS (7 sets, daily range): BP systolic 134–156; BP diastolic 72–77; PULSE 63–82; RESP 17–18
[2017-06-30] MEDS: SUCRALFATE 1 GM TAB PO SCH ×3 (00:39→12:24)
[2017-06-30] MEDS: LORAZEPAM 2 MG INJ IV PRN (00:39)
[2017-06-30] MEDS: PANTOPRAZOLE (EC) 40 MG TAB PO SCH (06:30)
[2017-06-30] MEDS: SPIRONOLACTONE 25 MG TAB PO SCH (06:30)
[2017-06-30] MEDS: THIAMINE 100 MG TAB PO SCH (08:21)
[2017-06-30] MEDS: ISOSORBIDE DINITRATE 10 MG TAB PO SCH ×2 (08:21→12:24)
[2017-06-30] MEDS: FOLIC ACID 1 MG TAB PO SCH (08:22)
[2017-06-30] MEDS: LOSARTAN 50 MG TAB PO SCH (08:22)
[2017-06-30] MEDS: FERROUS SULFATE (EC) 325 MG TAB PO SCH (08:22)
[2017-06-30] MEDS: MULTIVITAMINS THERAPEUTIC TAB PO SCH (08:22)
[2017-06-30] MEDS: NICOTINE (14 MG/24 HR) PATCH TRANSDERM SCH (08:23)
[2017-06-30] MEDS ORDERED: FUROSEMIDE 40 MG TAB PO SCH (09:00)
[2017-06-30 09:50] LABS: ABNORMAL IP MESSAGE 1; BASOPHIL # 0.1 10^3/ul (0.0-0.1); BASOPHILS % 0.5 % (0.0-2.0); EOSINOPHILS # 0.2 10^3/ul (0.0-0.5); EOSINOPHILS % 1.7 % (0.0-7.0); HEMATOCRIT 29.1 % (42.0-52.0); HEMOGLOBIN 9.2 g/dl (14.0-18.0); LYMPHOCYTES # 1.7 10^3/ul (0.8-2.9); LYMPHOCYTES % 18.6 % (15.0-51.0); MEAN CORPUSCULAR HEMOGLOBIN 23.7 pg (29.0-33.0); MEAN CORPUSCULAR HGB CONC 31.6 g/dl (32.0-37.0); MEAN PLATELET VOLUME 10.1 fl (7.4-10.4); MONOCYTE # 1.6 10^3/ul (0.3-0.9); MONOCYTES % 16.9 % (0.0-11.0); NEUTROPHIL # 5.8 10^3/ul (1.6-7.5); NEUTROPHILS % 62.1 % (39.0-77.0); PLATELET COUNT 318 10^3/UL (140-415); POSITIVE DIFF @See below; RED BLOOD COUNT 3.88 10^6/ul (4.70-6.10); RED CELL DISTRIBUTION WIDTH 26.4 % (11.5-14.5); WHITE BLOOD COUNT 9.3 10^3/ul (4.8-10.8)
[2017-06-30 10:15] LABS: MAGNESIUM 1.7 mg/dl (1.7-2.5); PHOSPHORUS 3.9 mg/dl (2.5-4.9)
[2017-06-30 10:18] LABS: CALCIUM 8.5 mg/dl (8.4-10.2); CREATININE 1.65 mg/dl (0.61-1.24); POTASSIUM 3.8 mmol/L (3.5-5.1)
--- NOTE | 2017-06-30 12:26 | PN ---
Date/Time of Note Date/Time of Note DATE: 06/30/17 TIME: 12:14 Assessment/Plan VTE Prophylaxis VTE Prophylaxis Intervention: SCD's Lines/Catheters IV C[facility]ter Type (from [facility]): Saline Lock Urinary Cath still in place: No Assessment/Plan Assessment/Plan 62-year-old male with: 1. Cardiomyopathy, pulmonary edema, CHF exacerbation with respiratory distress , echocardiogram pending to evaluate ejection fraction with cardiomyopathy. Improved respiratory status, on RA at times. Repeat EKG yesterday with diffuse T wave abnormalities. 2D echocardiogram with 25% EF. Continue diuresis with Lasix and Aldactone. Doses adjusted to daily. Patient will need BMP drawn in 3-5 days with follow-up with his primary care physician. Slightly elevated cardiac enzymes, keep trending down. Continue diuresis. Appreciate cardiology recommendation, medical treatment, follow-up with cardiology within 1-2 weeks. 2. Slightly elevated troponins, in setting of anemia, CHF exacerbation. Patient also had an episode of nonsustained V. tach 3 beats a couple of nights ago and known cardiomyopathy with ejection fraction of 25%. And EKG with some T-wave inversion yesterday but troponin trended down. Appreciate Dr. Martinez's recommendations, we are going to pursue medical management for cardiomyopathy, hemoglobin is stable posttransfusion, discharge home today with current medications and close follow-up with primary care physician. 3. Microcytic chronic anemia, acute exacerbation, questionable ongoing slow GI bleed or intermittent upper GI bleed versus lower GI bleed. Patient did have 2 EGDs done few months ago with findings of gastritis for which he has been treated as he was H pylori positive. He was also advised to stop alcohol use but that he has not done so so far. Hemoglobin stable 9.2 and stable for the past 2 days. Continue Protonix 40 mg po twice daily with Carafate for severe nodular gastritis and severe duodenitis. Pathology negative for H pylori. 4. Hypertension: Uncontrolled and untreated. Patient on Coreg, continue Isordil and Cozaar added Patient with cardiomyopathy and EF 25% Appreciate recommendations from cardiology, blood pressure better controlled. 5. Reported seizure disorder: Monitor, patient has been off medication for 2 years. No seizures 6. Tobacco use: Nicotine patch, he has been advised to quit 7. Alcohol abuse: Counseled to quit, patient denies any history of alcohol withdrawal, he claims that he can go days without drinking. Will monitor closely, Ativan as needed. No signs of alcohol withdrawal. Continue on multivitamin, folate and thiamine. 8. Severe nodular gastritis, severe duodenitis, H pylori negative. Continue PPIs and Carafate. Hemoglobin stable 2 days. Prophylaxis: SCDs to lower extremity for DVT prophylaxis, Protonix known gastritis Disposition: Discharge home today, patient needs close follow-up with primary care physician and to repeat BMP in 3-5 days. Follow-up with cardiology in 1-2 weeks. Subjective 24 Hr Interval Summary Free Text/Dictation Patient doing well, on room air, stable, based on laboratory data today, medication have been readjusted. Okay to discharge according to cardiology and GI. Patient however needs PCP follow-up in 1 week with lab draw. Will notify [facility] and assistant case manager. Exam/Review of Systems Vital Signs Vitals Vital Signs Date Time Temp Pulse Resp B/P Pulse Ox O2 Delivery O2 Flow Rate FiO2 06/30/17 11:22 98.7 71 18 135/72 100 06/30/17 02:22 2.0 06/28/17 19:00 Room Air Intake and Output 06/29/17 06/29/17 06/30/17 15:00 23:00 07:00 Intake Total 106 ml 900 ml Output Total 1200 ml Balance 106 ml -300 ml Exam Constitutional: alert, oriented, well developed Respiratory: clear to auscultation, normal air movement Cardiovascular: nl pulses, regular rate and rhythm Gastrointestinal: non-tender, soft Musculoskeletal: nl extremities to inspection, nl gait and stance Extremities: normal pulses, other (No edema, clubbing or cyanosis) Neurological: KETTLE OPERATOR II-XII intact, nl mental status, nl speech, nl strength Results Result Diagram: 06/30/1782406/30/17824 Results 24 hrs Laboratory Tests Test 06/30/17 08:25 White Blood Count 9.3 Red Blood Count 3.88 L Hemoglobin 9.2 L Hematocrit 29.1 L Mean Corpuscular Volume 75.0 L Mean Corpuscular Hemoglobin 23.7 L Mean Corpuscular Hemoglobin Concent 31.6 L Red Cell Distribution Width 26.4 H Platelet Count 318 Mean Platelet Volume 10.1 Neutrophils % 62.1 Lymphocytes % 18.6 Monocytes % 16.9 H Eosinophils % 1.7 Basophils % 0.5 Nucleated Red Blood Cells % 0.0 Neutrophils # 5.8 Lymphocytes # 1.7 Monocytes # 1.6 H Eosinophils # 0.2 Basophils # 0.1 Nucleated Red Blood Cells # 0.0 Sodium Level 131 L Potassium Level 3.8 Chloride Level 93 L Carbon Dioxide Level 30 Anion Gap 12 Blood Urea Nitrogen 13 Creatinine 1.65 H Glucose Level 88 Calcium Level 8.5 Phosphorus Level 3.9 Magnesium Level 1.7 Medications Medications Current Medications Sucralfate (Carafate) 1 gm Q6 PO Last administered on 06/30/17 06:30; Admin Dose 1 GM; Start 06/25/17 at 12:00 Ondansetron HCl (Zofran Inj) 4 mg Q6H PRN IV NAUSEA AND/OR VOMITING; Start at 09:30 Nitroglycerin (Nitroglycerin (Sl Tab) 0.4 Mg) 1 tab Q5M PRN SL CHEST PAIN Last administered on 06/27/17 22:35; Admin Dose 1 TAB; Start 06/25/17 at 09:30 Acetaminophen (Tylenol Tab) 650 mg Q6H PRN PO PAIN LEVEL 1-3 OR FEVER Last administered on 06/28/17 20:20; Admin Dose 650 MG; Start 06/25/17 at 09:30 Acetaminophen/ Hydrocodone Bitart ([place] (5/325)) 1 tab Q6H PRN PO PAIN LEVEL 4 -6 Last administered on 06/26/17 05:07; Admin Dose 1 TAB; Start 06/25/17 at 09:30 Morphine Sulfate (morphine) 2 mg Q4H PRN IV PAIN LEVEL 7-10 Last administered on 06/27/17 22:36; Admin Dose 2 MG; Start 06/25/17 at 09:30 Docusate Sodium (Colace) 100 mg Q12H PRN PO CONSTIPATION; Start 06/25/17 at 09 :30 Magnesium Hydroxide (Milk Of Mag) 30 ml DAILY PRN PO CONSTIPATION; Start 06/25 at 09:30 Bisacodyl (Dulcolax Supp) 10 mg DAILY PRN [place] CONSTIPATION; Start 06/25/17 at 09:30 Isosorbide Dinitrate (Isordil) 10 mg TID PO Last administered on 06/30/17 08: 21; Admin Dose 10 MG; Start 06/25/17 at 09:30 Folic Acid (Folic Acid) 1 mg DAILY PO Last administered on 06/30/17 08:22; Admin Dose 1 MG; Start 06/25/17 at 14:00 Multivitamins Therapeutic (Theragran) 1 tab DAILY PO Last administered on 06/30 08:22; Admin Dose 1 TAB; Start 06/25/17 at 14:00 Thiamine HCl (Vitamin B1) 100 mg DAILY PO Last administered on 06/30/17 08:21 ; Admin Dose 100 MG; Start 06/25/17 at 14:00 Lorazepam (Ativan) 1 mg Q6H PRN IV CONTROL WITHDRAWAL SYMPTOMS Last administered on 06/30/17 00:39; Admin Dose 1 MG; Start 06/25/17 at 14:00 Nicotine (Nicoderm 14 Mg/ 24hr) 1 patch DAILY TRANSDERM Last administered on 08:23; Admin Dose 1 PATCH; Start 06/25/17 at 14:00 Ferrous Sulfate (Ferrous Sulfate (Ec)) 325 mg BID PO Last administered on 06/30 08:22; Admin Dose 325 MG; Start 06/26/17 at 09:00 Hydralazine HCl (Apresoline) 10 mg Q6H PRN IV high blood pressure Last administered on 06/29/17 21:11; Admin Dose 10 MG; Start 06/27/17 at 01:00 Atorvastatin Calcium (Lipitor) 40 mg HS PO Last administered on 06/29/17 20: 59; Admin Dose 40 MG; Start 06/27/17 at 21:00 Losartan Potassium (Cozaar) 50 mg BID PO Last administered on 06/30/17 08:22 ; Admin Dose 50 MG; Start 06/28/17 at 21:00 Carvedilol (Coreg) 12.5 mg BID PO Last administered on 06/30/17 08:22; Admin Dose 12.5 MG; Start 06/29/17 at 21:00 Furosemide (Lasix) 40 mg DAILY PO Last administered on 06/30/17 08:22; Admin Dose 40 MG; Start 06/30/17 at 09:00 Pantoprazole (Protonix Tab) 40 mg BID@ PO Last administered on 06/30/17 06:30; Admin Dose 40 MG; Start 06/29/17 at 18:00 Spironolactone (Aldactone) 25 mg DAILY PO ; Start 07/01/17 at 09:00 Procedures Procedures Lab No: [id number] Date: 06/28/2017 SPECIMEN: Gastric biopsy CLINICAL: Anemia; rule out H. pylori GROSS EXAMINATION: Received in formalin are three fragments of serna-pink soft tissue that measure 0.1 x 0.1 x 0.1 cm up to 0.4 x 0.2 x 0.1 cm. Totally submitted in one cassette. MICROSCOPIC DIAGNOSIS: Gastric biopsies: -- Gastric antral type mucosa with mild to moderate superficial colonic gastritis. -- Gastric body type mucosa with no significant histopathological features. -- Giemsa stains stain with appropriate control, is negative for Helicobacter pylori organisms. -- No dysplasia or intestinal metaplasia is identified. COMMENT: Helicobacter pylori organisms can be patchy in distribution and negative Giemsa stain does not totally exclude the possibility of Helicobacter pylori chronic gastritis MP/WS/db/go Date of Service: 06/28/17; Date Received: 06/29/17 Dictated: 06/30/17; Transcribed: 06/30/17; Sent by Fax: 06/30/17 Neeraj Jara M.D. Pathologist Electronically Signed 06/30/2017 ASHISH US Jun 30, 2017 12:26
--- NOTE | 2017-06-30 12:29 | PDOCDIS ---
Discharge Instructions CONDITION Patient Condition: Stable HOME CARE INSTRUCTIONS: Special Diet: low fat low cholesterol diet ACTIVITY: Activity Restrictions: Slowly Increase Activity FOLLOW UP/APPOINTMENTS Follow-up Plan Check BMP on Sunday 08/05 with results to be sent to primary care physician. Follow-up with primary care physician within 1 week. Follow-up with cardiology within 1-2 weeks. ASHISH US Jun 30, 2017 12:29
[2017-06-30] MEDS ORDERED: MULTI PO (12:40)
[2017-06-30] MEDS ORDERED: ISOS10TA2 PO (12:40)
[2017-06-30] MEDS ORDERED: ATOR40TA68 PO (12:40)
[2017-06-30] MEDS ORDERED: SPIR25TA PO (12:40)
[2017-06-30] MEDS ORDERED: Thiamine PO (12:40)
[2017-06-30] MEDS ORDERED: Nicotine (14 Mg/24 Hr) TRANSDERM (12:40)
[2017-06-30] MEDS ORDERED: FER325 PO (12:40)
[2017-06-30] MEDS ORDERED: FURO40TA4 PO (12:40)
[2017-06-30] MEDS ORDERED: FOLI-49 PO (12:40)
[2017-06-30] MEDS ORDERED: PANT40TA4 PO (12:40)
[2017-06-30] MEDS ORDERED: LOSA50TA2 PO (12:40)
[2017-06-30] MEDS ORDERED: SUCR1TAB27 PO (12:40)
[2017-06-30] MEDS ORDERED: CARV12.579 PO (12:40)
--- NOTE | 2017-06-30 13:39 | PN ---
Date/Time of Note Date/Time of Note DATE: 06/30/17 TIME: 13:37 Assessment/Plan VTE Prophylaxis VTE Prophylaxis Intervention: ambulation Lines/Catheters [facility] Saline Lock Urinary Cath still in place: No Assessment/Plan Chief Complaint/Hosp Course Assessment: Anemia Nodular gastritis Severe duodenitis Cardiomyopathy EF 25% History of Seizures- off meds x2 years, no seizures reported Plan: Continue PPIs plus Carafate Pt to follow up with GI 3-4 week to review pathology Continue 2gm Na diet Pt seen in collaboration with Dr. Salazar Subjective: Course reviewed with nursing staff Patient interviewed and examined All labs, imaging and other results reviewed The patient is doing well status post EGD Pt to f/u as an out-patient 3-4 weeks discussed need to quit smoking and drinking alcohol Pt will be discharged today Problems: Exam/Review of Systems Vital Signs Vitals Vital Signs Date Time Temp Pulse Resp B/P Pulse Ox O2 Delivery O2 Flow Rate FiO2 06/30/17 12:00 63 06/30/17 11:22 98.7 18 135/72 100 06/30/17 02:22 2.0 06/28/17 19:00 Room Air Intake and Output 06/29/17 06/29/17 06/30/17 15:00 23:00 07:00 Intake Total 106 ml 900 ml Output Total 1200 ml Balance 106 ml -300 ml Exam Constitutional: alert, oriented Psych: no complaints Head: atraumatic, normocephalic Eyes: nl conjunctiva ENMT: nl external ears & nose Neck: supple Respiratory: clear to auscultation Cardiovascular: nl pulses Gastrointestinal: bowel sounds, soft, No mass, No rebound or guarding, No splenomegaly, No surgical scars, No tender Genitourinary - Male: nl penis Extremities: normal pulses Skin: nl turgor Lymph: nl lymph nodes Results Result Diagram: 06/30/17 0825 06/30/17 0825 Results 24 hrs Laboratory Tests Test 06/30/17 08:25 White Blood Count 9.3 Red Blood Count 3.88 L Hemoglobin 9.2 L Hematocrit 29.1 L Mean Corpuscular Volume 75.0 L Mean Corpuscular Hemoglobin 23.7 L Mean Corpuscular Hemoglobin Concent 31.6 L Red Cell Distribution Width 26.4 H Platelet Count 318 Mean Platelet Volume 10.1 Neutrophils % 62.1 Lymphocytes % 18.6 Monocytes % 16.9 H Eosinophils % 1.7 Basophils % 0.5 Nucleated Red Blood Cells % 0.0 Neutrophils # 5.8 Lymphocytes # 1.7 Monocytes # 1.6 H Eosinophils # 0.2 Basophils # 0.1 Nucleated Red Blood Cells # 0.0 Sodium Level 131 L Potassium Level 3.8 Chloride Level 93 L Carbon Dioxide Level 30 Anion Gap 12 Blood Urea Nitrogen 13 Creatinine 1.65 H Glucose Level 88 Calcium Level 8.5 Phosphorus Level 3.9 Magnesium Level 1.7 Medications Medications Current Medications Sucralfate (Carafate) 1 gm Q6 PO Last administered on 06/30/17 12:24; Admin Dose 1 GM; Start 06/25/17 at 12:00 Ondansetron HCl (Zofran Inj) 4 mg Q6H PRN IV NAUSEA AND/OR VOMITING; Start at 09:30 Nitroglycerin (Nitroglycerin (Sl Tab) 0.4 Mg) 1 tab Q5M PRN SL CHEST PAIN Last administered on 06/27/17 22:35; Admin Dose 1 TAB; Start 06/25/17 at 09:30 Acetaminophen (Tylenol Tab) 650 mg Q6H PRN PO PAIN LEVEL 1-3 OR FEVER Last administered on 06/28/17 20:20; Admin Dose 650 MG; Start 06/25/17 at 09:30 Acetaminophen/ Hydrocodone Bitart ([place] (5/325)) 1 tab Q6H PRN PO PAIN LEVEL 4 -6 Last administered on 06/26/17 05:07; Admin Dose 1 TAB; Start 06/25/17 at 09:30 Morphine Sulfate (morphine) 2 mg Q4H PRN IV PAIN LEVEL 7-10 Last administered on 06/27/17 22:36; Admin Dose 2 MG; Start 06/25/17 at 09:30 Docusate Sodium (Colace) 100 mg Q12H PRN PO CONSTIPATION; Start 06/25/17 at 09 :30 Magnesium Hydroxide (Milk Of Mag) 30 ml DAILY PRN PO CONSTIPATION; Start 06/25 at 09:30 Bisacodyl (Dulcolax Supp) 10 mg DAILY PRN [place] CONSTIPATION; Start 06/25/17 at 09:30 Isosorbide Dinitrate (Isordil) 10 mg TID PO Last administered on 06/30/17 12: 24; Admin Dose 10 MG; Start 06/25/17 at 09:30 Folic Acid (Folic Acid) 1 mg DAILY PO Last administered on 06/30/17 08:22; Admin Dose 1 MG; Start 06/25/17 at 14:00 Multivitamins Therapeutic (Theragran) 1 tab DAILY PO Last administered on 06/30 08:22; Admin Dose 1 TAB; Start 06/25/17 at 14:00 Thiamine HCl (Vitamin B1) 100 mg DAILY PO Last administered on 06/30/17 08:21 ; Admin Dose 100 MG; Start 06/25/17 at 14:00 Lorazepam (Ativan) 1 mg Q6H PRN IV CONTROL WITHDRAWAL SYMPTOMS Last administered on 06/30/17 00:39; Admin Dose 1 MG; Start 06/25/17 at 14:00 Nicotine (Nicoderm 14 Mg/ 24hr) 1 patch DAILY TRANSDERM Last administered on 08:23; Admin Dose 1 PATCH; Start 06/25/17 at 14:00 Ferrous Sulfate (Ferrous Sulfate (Ec)) 325 mg BID PO Last administered on 06/30 08:22; Admin Dose 325 MG; Start 06/26/17 at 09:00 Hydralazine HCl (Apresoline) 10 mg Q6H PRN IV high blood pressure Last administered on 06/29/17 21:11; Admin Dose 10 MG; Start 06/27/17 at 01:00 Atorvastatin Calcium (Lipitor) 40 mg HS PO Last administered on 06/29/17 20: 59; Admin Dose 40 MG; Start 06/27/17 at 21:00 Losartan Potassium (Cozaar) 50 mg BID PO Last administered on 06/30/17 08:22 ; Admin Dose 50 MG; Start 06/28/17 at 21:00 Carvedilol (Coreg) 12.5 mg BID PO Last administered on 06/30/17 08:22; Admin Dose 12.5 MG; Start 06/29/17 at 21:00 Furosemide (Lasix) 40 mg DAILY PO Last administered on 06/30/17 08:22; Admin Dose 40 MG; Start 06/30/17 at 09:00 Pantoprazole (Protonix Tab) 40 mg BID@ PO Last administered on 06/30/17 06:30; Admin Dose 40 MG; Start 06/29/17 at 18:00 Spironolactone (Aldactone) 25 mg DAILY PO ; Start 07/01/17 at 09:00 SAILAJA ESCUDERO Jun 30, 2017 13:39
[2017-07-01] MEDS ORDERED: SPIRONOLACTONE 25 MG TAB PO SCH (09:00)
== END 2017-06-30 15:36 | disposition home or self-care (01) | DRG 291 ==
LOC: E/R 05:21 → MS4 07:38
PROVIDERS: ADMIT Legal Medicine; ATTEND Legal Medicine
PROC: 30233N1 Transfusion of Nonautologous Red Blood Cells into Peripheral Vein, Percutaneous Approach (ICD-10-PCS; 2017-06-25)
PROC: 0DB68ZX Excision of Stomach, Via Natural or Artificial Opening Endoscopic, Diagnostic (ICD-10-PCS; principal; 2017-06-28 19:00)
DX: I11.0 Hypertensive heart disease with heart failure (principal); J96.01 Acute respiratory failure with hypoxia; I47.2 Ventricular tachycardia; D50.0 Iron deficiency anemia secondary to blood loss (chronic); F14.90 Cocaine use, unspecified, uncomplicated; I42.9 Cardiomyopathy, unspecified; F10.239 Alcohol dependence with withdrawal, unspecified; D62 Acute posthemorrhagic anemia; K92.1 Melena; K29.70 Gastritis, unspecified, without bleeding; Z72.0 Tobacco use; I16.0 Hypertensive urgency; I50.43 Acute on chronic combined systolic (congestive) and diastolic (congestive) heart failure; Z91.14 Patient's other noncompliance with medication regimen; K29.80 Duodenitis without bleeding
CPT/HCPCS: 36415; 36430; 36600; 71010; 80048; 80053; 80061; 80306; 82270; 82550; 82553; 82728; 82803; 83036; 83540; 83605; 83735; 83880; 84100; 84439; 84443; 84484; 85014; 85018; 85025; 85610; 85730; 86850; 86900; 86901; 86920; 87040; 87045; 88305; 88312; 93005; 93306; 94660; 94664; 96365; 96366; 96375; C9113; J0360; J1940; J2060; J2250; J2270; J3010; J3475; J3480; J7040; P9016

== ENCOUNTER 2017-07-25 07:15 | Inpatient (IN) | payer OTHER ==
[2017-07-25] VITALS (29 sets, daily range): BP systolic 102–162; BP diastolic 67–92; PULSE 58–77; RESP 17–28; TEMP 95.8; Ht 167.6 cm; Wt 63.9 kg
[~2017-07-25] VITALS: Ht 167.6 cm; Wt 63.9 kg
[~2017-07-25 07:15] MED LIST changes: +ATOR40TA68 PO; +CARV12.579 PO; +FER325 PO; +FOLI-49 PO; +FURO40TA4 PO; -GABA100C14 PO; +ISOS10TA2 PO; +LIDOCAINE 100 MG SYRINGE ONE; +LOSA50TA2 PO; +MULTI PO; +Nicotine (14 Mg/24 Hr) TRANSDERM; -OMEP20CA16 PO; +PANT40TA4 PO; +SPIR25TA PO; +SUCCINYLCHOLINE CHLORIDE 100 MG/5 ML SYG IV ONE; +SUCR1TAB27 PO; +Thiamine PO
[2017-07-25] MEDS ORDERED: niCARdipine-NS 0.1MG/ML DRIP 200 ML IV SCH (07:25)
[2017-07-25] MEDS ORDERED: niCARdipine-NS 0.1MG/ML DRIP 200 ML ONE (07:26)
[2017-07-25] MEDS ORDERED: niCARdipine-NS 0.1MG/ML DRIP 200 ML IV STA (07:28)
[2017-07-25] MEDS ORDERED: LIDOCAINE 100 MG SYRINGE IV STA (07:29)
[2017-07-25] MEDS ORDERED: SUCCINYLCHOLINE CHLORIDE 100 MG/5 ML SYG IV STA (07:29)
[2017-07-25 07:39] LABS: ABNORMAL IP MESSAGE 1; BASOPHIL # 0.1 10^3/ul (0.0-0.1); BASOPHILS % 0.7 % (0.0-2.0); EOSINOPHILS # 0.5 10^3/ul (0.0-0.5); EOSINOPHILS % 4.7 % (0.0-7.0); HEMATOCRIT 40.9 % (42.0-52.0); HEMOGLOBIN 12.3 g/dl (14.0-18.0); LYMPHOCYTES # 4.5 10^3/ul (0.8-2.9); MEAN CORPUSCULAR HEMOGLOBIN 25.5 pg (29.0-33.0); MEAN CORPUSCULAR HGB CONC 30.1 g/dl (32.0-37.0); MEAN CORPUSCULAR VOLUME 84.9 fl (82.0-101.0); MEAN PLATELET VOLUME 10.6 fl (7.4-10.4); MONOCYTE # 1.3 10^3/ul (0.3-0.9); MONOCYTES % 11.6 % (0.0-11.0); NEUTROPHIL # 4.4 10^3/ul (1.6-7.5); NEUTROPHILS % 40.7 % (39.0-77.0); PLATELET COUNT 241 10^3/UL (140-415); POSITIVE DIFF @See below; RED BLOOD COUNT 4.82 10^6/ul (4.70-6.10); RED CELL DISTRIBUTION WIDTH 26.5 % (11.5-14.5); WHITE BLOOD COUNT 10.8 10^3/ul (4.8-10.8)
[2017-07-25] MEDS ORDERED: PROPOFOL 100 ML IV STA (07:40)
[2017-07-25] MEDS ORDERED: PROPOFOL 100 ML ONE (07:42)
--- NOTE | 2017-07-25 07:46 | RADRPT ---
PROCEDURE: CT Brain without contrast. CLINICAL INDICATION: Acute neurologic deficit, code stroke. TECHNIQUE: A CT of the brain was performed on a GE 64-slice CT scanner utilizing axial imaging fro m the skull base through the vertex without intravenous contrast. Multiplanar reformatted images wer e made. One or more the following dose reduction techniques were utilized: Automated exposure contr ol, adjustment of the mA/ or kV according to patient's size, or use of iterative reconstruction tech nique. DICOM images are available for review. The CTDIvol is 45.0 mGy and the DLP is 720.2 mGycm. COMPARISON: None. FINDINGS: There is no intracranial hemorrhage, mass effect, or midline shift. No extra-axial fluid collection is seen. Mild to moderate atrophy is identified with compensatory ventricular and sulcal enlargeme nt. Mild to moderate decreased attenuation is seen in the periventricular and deep white matter, co mpatible with microvascular ischemic disease. The connor white matter differentiation is well preserve d with no acute infarct detected. The osseous structures and visualized paranasal sinuses are unrem arkable. IMPRESSION: 1. No evidence of acute intracranial pathology. 2. Mild to moderate diffuse atrophy. 3. There is mild to moderate microvascular ischemic disease in the periventricular and deep white m atter. Comment: A call report was made to Dr. Mendoza on 07/25/[address] Young at 07:43 a.m. RPTAT: [facility] .Tessa Young MD, Date Time Electronically viewed and signed by .Tessa Young MD, on 07/25/2017 07:46 .H/
[2017-07-25 08:01] LABS: CALCIUM 9.4 mg/dl (8.4-10.2); CREATININE 1.31 mg/dl (0.61-1.24); POTASSIUM 5.5 mmol/L (3.5-5.1)
[2017-07-25 08:13] LABS: TROPONIN-I 0.041 ng/ml (0.00-0.12)
--- NOTE | 2017-07-25 08:28 | ERD ---
ER Documentation Chief Complaint Chief Complaint TANJA IN SEVERE RESP DISTRESS, VENTILATED BY EMS USING BVM HPI This is a 62-year-old male who called out to his niece that he needed help this morning. She went into his room and found him bit confused and she states he did not verbalize anything that was wrong with him at that time. She called 911. EMS reports on their arrival the patient was nonverbal but was able to get himself out of bed and push himself onto the EMS stretcher. There is limited history given at that time. The patient then was loaded in the ambulance on the way here the patient suddenly was syncopal with a left gaze preference and then became bradycardic with a heart rate of 30 approximately. The EMS then began to bag the patient and the heart rate came up into the 70s and 80s. On arrival the patient is having agonal respirations, does not have a gaze preference and is nonresponsive. Patient's blood pressure is elevated with reading of 264/133. There is no known witnessed seizure ROS All systems reviewed and are negative except as per history of present illness. Medications Home Meds Active Scripts [Thiamine] 100 MG TAB No Conflict Check, 100 MG PO DAILY for 30 Days, 3 Refills Prov:ASHISH US 06/30/17 Multivitamins* (Theragran*) 1 Tab Tab, 1 TAB PO DAILY for 30 Days, TAB 3 Refills Prov:ASHISH US 06/30/17 Folic Acid* (Folic Acid*) 1 Mg Tablet, 1 MG PO DAILY for 30 Days, TAB 3 Refills Prov:ASHISH US 06/30/17 Sucralfate (Carafate) 1 Gm Tablet, 1 GM PO Q6 for 30 Days, TAB 3 Refills Prov:ASHISH US 06/30/17 Pantoprazole* (Pantoprazole*) 40 Mg Tablet.dr, 40 MG PO BID@ for 30 Days, 3 Refills Prov:ASHISH US 06/30/17 Furosemide* (Furosemide*) 40 Mg Tablet, 40 MG PO DAILY for 30 Days, TAB 3 Refills Prov:ASHISH US 06/30/17 Spironolactone* (Aldactone*) 25 Mg Tablet, 25 MG PO DAILY for 30 Days, TAB 3 Refills Prov:ASHISH US 06/30/17 Losartan Potassium* (Cozaar*) 50 Mg Tablet, 50 MG PO BID for 30 Days, TAB 3 Refills Prov:ASHISH US 06/30/17 Isosorbide Dinitrate* (Isordil*) 10 Mg Tablet, 10 MG PO TID for 30 Days, TAB 3 Refills Prov:ASHISH US 06/30/17 Carvedilol* (Carvedilol*) 12.5 Mg Tablet, 12.5 MG PO BID for 30 Days, TAB 3 Refills Prov:ASHISH US 06/30/17 Atorvastatin* (Atorvastatin*) 40 Mg Tablet, 40 MG PO HS for 30 Days, TAB 3 Refills Prov:ASHISH US 06/30/17 [Nicotine (14 Mg/24 Hr)] 1 PATCH PATCH No Conflict Check, 1 PATCH TRANSDERM DAILY for 30 Days Prov:ASHISH US 06/30/17 Ferrous Sulfate* (Ferrous Sulfate*) 325 Mg Tabec, 325 MG PO BID for 30 Days, TAB 3 Refills Prov:ASHISH US 06/30/17 Allergies Allergies: Coded Allergies: No Known Allergy (Unverified , 07/25/17) PMhx/Soc Medical and Surgical Hx: Unable to obtain Anesthesia Reaction: No Hx Neurological Disorder: No Hx Respiratory Disorders: No Hx Cardiac Disorders: No Hx Miscellaneous Medical Probl: No Hx Substance Use: No Hx Tobacco Use: Yes Smoking Status: Unknown if ever smoked FmHx Unable to obtain due to mental status Physical Exam Vitals Vital Signs Date Time Temp Pulse Resp B/P Pulse Ox O2 Delivery O2 Flow Rate FiO2 07/25/17 10:01 96.5 104 23 139/82 100 Mechanical Ventilator 07/25/17 10:00 96.5 111 21 148/89 100 Mechanical Ventilator 07/25/17 09:00 96.5 66 25 146/79 100 Mechanical Ventilator 07/25/17 08:10 96.9 77 21 141/94 100 Mechanical Ventilator 07/25/17 07:28 100 4 255/164 100 07/25/17 07:20 Bag Valve Mask 07/25/17 07:15 99 23 100 100 Physical Exam Const: [] Well-nourished Head: Atraumatic normocephalic Eyes: Normal Conjunctiva, pupils bilateral midrange and sluggish, no gaze preference no nystagmus ENT: Normal External Ears, Nose and Mouth. Neck: Full range of motion..~ No meningismus. Resp: Clear to auscultation bilaterally Cardio: Tachycardia, no murmurs Abd: Soft, non tender, non distended. Normal bowel sounds Skin: No petechiae or rashes Back: Normal inspection Ext: No cyanosis, or edema Neur: GCS of 3 Psych: Unable to obtain Result Diagram: 07/25/1729 07/25/1729 Results 24 hrs Laboratory Tests Test 07/25/17 07:29 07/25/17 08:20 07/25/17 09:00 07/25/17 09:43 White Blood Count 10.810^3/ul Red Blood Count 4.8210^6/ul Hemoglobin 12.3g/dl Hematocrit 40.9% Mean Corpuscular Volume 84.9fl Mean Corpuscular Hemoglobin 25.5pg Mean Corpuscular Hemoglobin Concent 30.1g/dl Red Cell Distribution Width 26.5% Platelet Count 12533^3/UL Mean Platelet Volume 10.6fl Neutrophils % 40.7% Lymphocytes % 42.0% Monocytes % 11.6% Eosinophils % 4.7% Basophils % 0.7% Nucleated Red Blood Cells % 0.0/100WBC Neutrophils # 4.410^3/ul Lymphocytes # 4.510^3/ul Monocytes # 1.310^3/ul Eosinophils # 0.510^3/ul Basophils # 0.110^3/ul Nucleated Red Blood Cells # 0.010^3/ul Sodium Level 134mmol/L Potassium Level 5.5mmol/L Chloride Level 100mmol/L Carbon Dioxide Level 14mmol/L Anion Gap 26 Blood Urea Nitrogen 10mg/dl Creatinine 1.31mg/dl Glucose Level 186mg/dl Hemoglobin A1c 4.9% Calcium Level 9.4mg/dl Troponin I 0.041ng/ml Prothrombin Time 14.1Sec Prothrombin Time Ratio 1.1 INR International Normalized Ratio 1.09 Activated Partial Thromboplast Time 34.6Sec Urine Color YELLOW Urine Clarity CLOUDY Urine pH 7.0 Urine Specific Gilbert 1.006 Urine Ketones NEGATIVEmg/dL Urine Nitrite NEGATIVEmg/dL Urine Bilirubin NEGATIVEmg/dL Urine Urobilinogen NEGATIVEmg/dL Urine Leukocyte Esterase NEGATIVELeu/ul Urine Microscopic RBC 15/HPF Urine Microscopic WBC 26/HPF Urine Amorphous Crystals MODERATE/HPF Urine Bacteria FEW/HPF Urine Mucus FEW/HPF Urine Hemoglobin 1+mg/dL Urine Glucose 3+mg/dL Urine Total Protein 3+mg/dl Urine Opiates Screen Negative Urine Barbiturates Negative Urine Amphetamines Screen Negative Urine Benzodiazepines Screen Negative Urine Cocaine Screen Negative Urine Cannabinoids Negative Blood Gas Specimen Source Blood arterial Arterial Blood Date Drawn 07/25/2017 10:12:51 AM Arterial Blood pH (Temp corrected) 7.325 Arterial Blood pCO2 (Temp correct) 43.5mmhg Arterial Blood pO2 (Temp corrected) 119.9mmHG Arterial Blood HCO3 22.2mmol/L Arterial Blood Base Excess -3.8mmol/L Arterial Blood Oxygen Saturation 98.2mmHG Jamir Test ACCEPTAB Arterial Blood Gas Puncture Site Right Brachial Arterial Blood Carboxyhemoglobin 0.9% Arterial Blood Methemoglobin 0.3% Blood Gas A-a O2 Differential 549.6mmHg Oxyhemoglobin Percent 97.0% Total Hemoglobin 12.5g/dl Blood Gas Temperature 37.0C Blood Gas Respiration Rate 16.0 Blood Gas Actual Respiration Rate 16 Blood Gas Modality VENT - AC FiO2 100.0% Blood Gas Tidal Volume 500.0mL Blood Gas Notified Whom MDA Blood Gas Notified Time 07/25/2017 10:19:09 AM Current Medications Medications (Trade) Dose Ordered Sig/Renee Route PRN Reason Start Time Stop Time Status Last Admin Dose Admin Nicardipine HCl 200 ml @ 50 mls/hr TITRATE IV 07/25/17 07:25 07/25/17 07:29 Nicardipine HCl (Cardene Iv) 200 ml @ 50 mls/hr ONCE STAT IV 07/25/17 07:28 07/25/17 11:27 07/25/17 07:30 Succinylcholine Chloride (Anectine Syringe) 100 mg ONCE STAT IV 07/25/17 07:29 07/25/17 07:30 DC 07/25/17 07:22 Lidocaine 80 mg 80 mg ONCE STAT IV 07/25/17 07:29 07/25/17 07:30 DC 07/25/17 07:22 Propofol 100 ml @ 0 mls/hr ONCE STAT IV 07/25/17 07:40 07/25/17 07:42 DC 07/25/17 07:49 Propofol 100 ml @ ud STK-MED ONCE .ROUTE 07/25/17 07:42 07/25/17 07:43 DC Midazolam HCl 50 ml @ 3 mls/hr ONCE STAT IV 07/25/17 10:46 07/26/17 03:25 Azithromycin 250 ml @ 250 mls/hr ONCE STAT IV 07/25/17 10:51 07/25/17 11:50 Ceftriaxone Sodium (Rocephin) 50 ml @ 100 mls/hr ONCE STAT IVPB 07/25/17 10:51 07/25/17 11:20 DC Furosemide (Lasix) 60 mg ONCE ONCE IV 07/25/17 11:00 07/25/17 11:01 DC Procedures/MDM PROCEDURE: CT Brain without contrast. CLINICAL INDICATION: Acute neurologic deficit, code stroke. TECHNIQUE: A CT of the brain was performed on a GE 64-slice CT scanner utilizing axial imaging from the skull base through the vertex without intravenous contrast. Multiplanar reformatted images were made. One or more the following dose reduction techniques were utilized: Automated exposure control, adjustment of the mA/ or kV according to patient's size, or use of iterative reconstruction technique. DICOM images are available for review. The CTDIvol is 45.0 mGy and the DLP is 720.2 mGycm. COMPARISON: None. FINDINGS: There is no intracranial hemorrhage, mass effect, or midline shift. No extra- axial fluid collection is seen. Mild to moderate atrophy is identified with compensatory ventricular and sulcal enlargement. Mild to moderate decreased attenuation is seen in the periventricular and deep white matter, compatible with microvascular ischemic disease. The connor white matter differentiation is well preserved with no acute infarct detected. The osseous structures and visualized paranasal sinuses are unremarkable. IMPRESSION: 1. No evidence of acute intracranial pathology. 2. Mild to moderate diffuse atrophy. 3. There is mild to moderate microvascular ischemic disease in the periventricular and deep white matter. Comment: A call report was made to Dr. Manjarrez on 07/25/[address] Young at 07: 43 a.m. RPTAT: HJAH .Tessa Young MD, MD Date Time Electronically viewed and signed by .Tessa Young MD, on 07/25/2017 07:46 .H/ CC: SIABEL MANJARREZ DO On arrival the patient was immediately intubated and started on a Cardene IV drip for severe hypertension. After intubation was put on a propofol drip Endotracheal Intubation by me: Pre assessment performed. See preceding note for details. Pre-oxygenation performed with 100% oxygen RSI: Performed w/o complication or hypoxic events. Medications as ordered. Blade: Mac 4 ET Tube: 7.5 cm Depth: 24 cm at the lip Intubation confirmed by colorimetric CO2, equal breath sounds, quiet over the stomach. This patient is not a TPA candidate is unclear if this patient had a stroke. EKG: Rate/Rhythm: Sinus tachycardia heart rate 111, LVH QRS, ST, QT: NORMAL TN, wide QRS, QT] Impression: Abnormal EKG Patient was given Lasix as this is likely pulmonary edema from hypertensive crisis. Also got blood cultures and antibiotics given as well. Critical Care Time: 35 minutes Treatments/Evaluations: Close monitoring and treatment of unstable vital signs, cardiorespiratory, and neurologic status, while maintaining tight balance of fluid, respiratory, and cardiac interventions. This time includes discussing the case with the patient and the patient's family. This time does not include all procedures stated elsewhere in this record. This time also includes reviewing old records, labs and radiological studies. This time includes examining and re-examining the patient. Additionally, this time also includes arranging care with admitting and consulting physicians. PROCEDURE: XR Chest. CLINICAL INDICATION: Respiratory failure TECHNIQUE: Single portable view of the chest was obtained COMPARISON: 04/27/2016 FINDINGS: The heart is enlarged. Aorta is tortuous. Marked vascular prominence. Diffuse increase opacities throughout both lungs. There is no pleural effusion or pneumothorax. Endotracheal tube terminates 4.4 cm above the kasia. Enteric feeding tube courses to the diaphragm with tip collimated from view. RPTAT: AA IMPRESSION: Cardiomegaly. Diffuse increase opacities throughout both lungs compatible with pulmonary edema , pneumonia or hemorrhage. Rita Garcia, Physician Date Time Electronically viewed and signed by Rita Garcia Physician on 07/25/2017 09 :10 ME/ CC: ISABEL MANJARREZ DO Spoke with Dr. Cloud will go to ICU Departure Diagnosis: Primary Impression: Respiratory distress Additional Impressions: Hypertensive emergency Hypertensive encephalopathy Condition: Serious ISABEL MANJARREZ DO Jul 25, 2017 08:27
[2017-07-25 08:48] LABS: INR 1.09; PARTIAL THROMBOPLASTIN TIME 34.6 Sec (25.0-35.0); PROTIME 14.1 Sec (12.2-14.2); PT RATIO 1.1
--- NOTE | 2017-07-25 09:11 | RADRPT ---
PROCEDURE: XR Chest. CLINICAL INDICATION: Respiratory failure TECHNIQUE: Single portable view of the chest was obtained COMPARISON: 04/27/2016 FINDINGS: The heart is enlarged. Aorta is tortuous. Marked vascular prominence. Diffuse increase opacities throughout both lungs. There is no pleural effusion or pneumothorax. Endotracheal tube terminates 4.4 cm above the kasia. Enteric feeding tube courses to the diaphragm with tip collimated from view. RPTAT: AA IMPRESSION: Cardiomegaly. Diffuse increase opacities throughout both lungs compatible with pulmonary edema, pneumonia or hemor rhage. Physician Nabil Date Time Electronically viewed and signed by Physician Nabil on 07/25/2017 09:10 OH/
[2017-07-25 09:53] LABS: ADD UMIC YES; UR AMORPHOUS CRYSTAL MODERATE /HPF (NONE SEEN); UR ASCORBIC ACID NEGATIVE (NEGATIVE); UR BACTERIA FEW /HPF (NONE SEEN); UR BILIRUBIN (Dip) NEGATIVE (NEGATIVE); UR BLOOD (Dip) 1+ mg/dL (NEGATIVE); UR CLARITY CLOUDY (CLEAR); UR COLOR YELLOW (YELLOW); UR GLUCOSE (Dip) 3+ mg/dL (NEGATIVE); UR KETONES (Dip) NEGATIVE (NEGATIVE); UR LEUKOCYTE ESTERASE (Dip) NEGATIVE Leu/ul (NEGATIVE); UR MUCUS FEW /HPF (NONE SEEN); UR NITRITE (Dip) NEGATIVE (NEGATIVE); UR RBC 15 /HPF (0-5); UR SPECIFIC GRAVITY (Dip) 1.006 (1.003-1.030); UR TOTAL PROTEIN (Dip) 3+ mg/dl (NEGATIVE); UR UROBILINOGEN (Dip) NEGATIVE (NEGATIVE)
[2017-07-25 10:07] LABS: BARBITURATES Negative (NEGATIVE); BENZODIAZEPINES Negative (NEGATIVE); CANNABINOIDS Negative (NEGATIVE); COCAINE Negative (NEGATIVE); OPIATES Negative (NEGATIVE)
[2017-07-25 10:19] LABS: AADO2 Arterial 549.6 mmHg (7.0-24.0); Allen Test ACCEPTAB; Arterial Base Excess -3.8 mmol/L (-3.0-3); Arterial COHb 0.9 % (0.0-3.0); Arterial HCO3 22.2 mmol/L (22.0-26.0); Arterial MetHb 0.3 % (0.0-1.5); Arterial Total Hemglobin 12.5 g/dl (12.0-18.0); MODE VENT - AC
[2017-07-25] MEDS ORDERED: MIDAZOLAM (DRIP) 50 mg/50 mL 50 ML IV STA (10:46)
[2017-07-25] MEDS ORDERED: AZITHROMYCIN 500MG/NS (PMX) 250 ML IV STA (10:51)
[2017-07-25] MEDS ORDERED: CEFTRIAXONE 1 GM/50 ML (PMX) 50 ML IVPB STA (10:51)
[2017-07-25] MEDS ORDERED: FUROSEMIDE 40 MG INJ IV ONE (11:00)
[2017-07-25] MEDS ORDERED: VANCOMYCIN 1 GM (PMX) 250 ML IVPB STA (11:24)
[2017-07-25] MEDS ORDERED: NACL 0.9% 3 ML SYG IV SCH (12:00)
[2017-07-25] MEDS ORDERED: EPINEPHrine 4 MG in DEXTROSE 5% 246 ML IV SCH (12:30)
[2017-07-25] MEDS: ENOXAPARIN 40 MG/0.4 ML SYG SC SCH (14:10)
[2017-07-25] MEDS: PROPOFOL 100 ML IV SCH ×2 (14:23→19:24)
--- NOTE | 2017-07-25 16:18 | CONS ---
DATE OF ADMISSION: 07/25/2017 DATE OF CONSULTATION: 07/25/2017 TYPE OF CONSULTATION: Pulmonary. REASON FOR CONSULTATION: Ventilator management. HISTORY OF PRESENT ILLNESS: A 62-year-old gentleman found to be confused, agitated this morning, 91 1 was called. Upon arrival, patient was nonverbal and appeared to have a syncopal episode, subseque nt bradycardia with agonal respiration. Also, patient was noted to be hypertensive with a systolic of 260 and diastolic of 130. Required emergent intubation and mechanical ventilation since that kojo epps, continues mechanical ventilation. PAST MEDICAL HISTORY: Hypertension, hyperlipidemia, incomplete data. SOCIAL HISTORY: Unknown. FAMILY HISTORY: Unable to obtain. PHYSICAL EXAMINATION: GENERAL: An elderly-appearing gentleman, intubated on mechanical ventilation, appears comfortable a t rest, no acute distress. VITAL SIGNS: Temperature 96, pulse 57, blood pressure 128/70 on Cardene drip, O2 sat 35% on current vent settings. 2+, equal and reactive to light. CARDIAC: S1, S2, no added sounds or murmurs. CHEST: Diminished air entry bilaterally. ABDOMEN: Soft, nontender. No guarding or rebound. EXTREMITIES: No cyanosis, clubbing, 1+ edema. NEUROLOGIC: Generalized weakness. LABORATORY DATA: White count 10.8, hemoglobin 12.3, platelets of 241, BUN 10, creatinine 1.31. BNP was 25,000. ABG initially pH 7.32, pCO2 of 43, pO2 of 119. INR 1.09. Urinalysis was negative for UTI. Toxicology screen was negative. DIAGNOSTIC DATA: Chest x-ray was performed, showed pulmonary edema, cardiomegaly. CT of the brain showed no acute intracranial abnormalities. IMPRESSION AND PLAN: 1. Hypertensive urgency. 2. Acute congestive cardiac failure. 3. Hypoxemic respiratory failure, likely secondary to above. 4. History of essential hypertension. PLAN: 1. Continue mechanical ventilation. 2. Continue Cardene drip for blood pressure management. 3. Echocardiogram and cardiology recommendation. 4. Obtain old notes and data. 5. Deep venous thrombosis and GI prophylaxis. Dictated By: ANDERSON HILL MD SV/NTS Conf#: [id number] DID#: [id number] CC: MONA CHOUDHARY MD;*End*
[2017-07-25 17:29] LABS: BARBITURATES Negative (NEGATIVE); BENZODIAZEPINES Negative (NEGATIVE); CANNABINOIDS Negative (NEGATIVE); COCAINE Negative (NEGATIVE); OPIATES Negative (NEGATIVE)
[2017-07-25] MEDS ORDERED: ASPIRIN (EC) 81 MG TAB PO SCH (17:30)
[2017-07-25] MEDS: ASPIRIN 81 MG TAB GTB SCH (18:36)
--- NOTE | 2017-07-25 19:13 | HP ---
DATE OF ADMISSION: 07/25/2017 Please note the history of present illness is obtained by reviewing old records as the patient is in tubated and sedated. CHIEF COMPLAINT: Shortness of breath and mental status changes. HISTORY OF PRESENT ILLNESS: The patient is a 62-year-old -[place] male with a history of ca rdiomyopathy (ejection fraction of approximately 25% to 30%), congestive heart failure, microcytic a nemia, uncontrolled hypertension, current tobacco abuse, current alcohol abuse, and cocaine abuse, a s well as gastritis and gastric ulcers on previous endoscopy, who was in his usual state of health a t home. The patient did not feel well and per the record started feeling confused and weak. At [facility] t time, he summoned 911. The patient was seen by EMS and in transport he became bradycardic into e 30s. The patient arrived in the emergency department and was emergently intubated. His systolic blood pressure was approximately 200 and his heart rate did rebound. He was started on a Cardene dr ip and emergently intubated as stated above. The patient was placed on propofol and given 60 mg of intravenous Lasix as well as antibiotics and sent to the intensive care unit for further evaluation and treatment. The patient was noted to have a troponin of 0.041 as well as a B-natriuretic peptide of 25,400. His sodium was 134. Potassium was elevated at 5.5 and BUN and creatinine at 10 and 1.31. His hemoglob in was stable at 12.3 and platelet count 241,000, white count of 10.8. His urine was significant fo r negative leukocyte esterase, 26 white cells, moderate amorphous crystals, a few bacteria, a few mu cus, 1+ hemoglobin, 3+ glucose and 3+ total protein. PT was 14.1 with an INR of 1.09 and PTT of 34. 6. In the intensive care unit, the patient has stabilized and his current blood pressure is 130/81, pul se rate of 62, respiratory rate of 19 which is slightly over the ventilator. His oxygen saturation is 100%, and he appears comfortable. HOME MEDICATIONS: Unknown; however, on discharge from last hospitalization, the patient was placed on: 1. Thiamine 100 mg once daily. 2. Multivitamins 1 tablet once daily. 3. Folic acid 1 mg once daily. 4. Carafate 1 g tablet every 6 hours for 30 days. 5. Protonix 40 mg twice daily. 6. Lasix 40 mg once daily. 7. Aldactone 25 mg once daily. 8. Cozaar 50 mg twice daily. 9. Isordil 10 mg 3 times a day. 10. Coreg 12.5 mg twice daily. 11. Atorvastatin 40 mg p.o. at bedtime. 12. Nicotine patch 14 mg. 13. Ferrous sulfate 325 mg twice daily. PAST MEDICAL HISTORY: Includes: 1. Gastritis and gastric ulcers as well as H. pylori gastritis, status post 2 EGDs in April 2016. 2. Hypertension, uncontrolled and untreated. 3. Chronic anemia. 4. Reported seizure disorder but no medications for the last 2 years. 5. Cardiomyopathy. 6. Cocaine abuse. 7. Alcohol abuse. 8. Noncompliance. SOCIAL HISTORY: The patient drinks 2 to 5 beers a day per the previous social history. He smokes 1 /2 pack a day for at least 40 years, and he also has a history of remote cocaine use. FAMILY HISTORY: Unobtainable. PHYSICAL EXAMINATION: VITAL SIGNS: His current vital signs include a temperature of 98.7, pulse rate of 63 to 71, blood p ressure 135/81. His oxygen saturation is 100% on FiO2 of 30%. HEENT: Normocephalic, atraumatic. His pupils were equal, round and reactive to light and accommoda tion. His oropharynx demonstrates an intubation tube as well as orogastric tube. No thyromegaly wa s noted. NECK: No JVD was noted. CARDIOVASCULAR: He had a regular rate and rhythm without appreciable murmurs, rubs or gallops. LUNGS: Appear to be clear to auscultation bilaterally anteriorly. ABDOMEN: Soft, nontender, nondistended with normoactive bowel sounds present in all 4 quadrants. EXTREMITIES: No clubbing, cyanosis or edema is noted. He has 2+ dorsalis pedis pulses, 2+ radial p ulses bilaterally. The skin is dry in the lower extremities. LABORATORIES AND TESTS: White count 10.8, hemoglobin 12.3, hematocrit of 40.9, platelet count of 24 1,000. PT 14.1, INR 1.09, PTT of 34.6. Sodium 134, potassium 5.5, chloride 100, bicarb 14, anion g ap 26, BUN 10, creatinine 1.31, glucose 186. Hemoglobin A1c 4.9. Calcium 9.4. Initial troponin 0. 041 and BNP elevated at 25,400. Toxicology screen is all negative for opiates, barbiturates, amphet amines, benzodiazepines, cocaine and cannabinoids. IMPRESSION: The patient is a 62-year-old male with multiple medical problems who presented with alt ered mental status, subsequent bradycardia and cardiogenic arrest with subsequent acute respiratory failure. The patient was emergently intubated and initially placed on a Cardene drip which has been weaned off. His blood pressure is much improved, and he is intubated and stable on the ventilator. 1. Cardiac arrest: Etiology unknown. His urine toxicology screen is negative. It is unclear if t he patient had an underlying cause for his bradyarrhythmia. We will trend serial troponins, and he will likely need an echocardiogram and further intervention based on his clinical progress. 2. Acute respiratory failure: This is secondary to cardiac arrest. The patient has been weaned do wn to an FiO2 of 30%. I discussed the case with Dr. Rae who believes that the patient may be ab le to be extubated as early as tomorrow depending on his clinical progress. 3. Alcohol abuse: Stable. There are no signs of withdrawal. The patient is intubated and sedated . 4. Cardiomyopathy: Appears stable. The patient was given 60 mg of Lasix for his congestive heart failure. He had a urine output of approximately 800 mL. He does not appear to be in worsened conge stive heart failure. His x-ray did show diffuse opacities throughout both lungs compatible with pul monary edema, pneumonia or hemorrhage. He will likely need additional Lasix. 5. Tobacco abuse: Stable. The patient will be counseled to quit all tobacco use. 6. Deep venous thrombosis prophylaxis with sequential compression devices and Protonix for gastroin testinal prophylaxis. Dictated By: MONA CHOUDHARY MD SH/NTS Conf#: [id number] DID#: [id number] CC: MONA CHOUDHARY MD;*End*
[2017-07-26] VITALS (54 sets, daily range): BP systolic 91–176; BP diastolic 62–100; PULSE 53–86; RESP 13–25
[2017-07-26] MEDS ORDERED: SOD CHLORIDE 0.9% 250 ML IV ONE (02:00)
[2017-07-26] MEDS: PROPOFOL 100 ML IV SCH ×3 (02:25→20:05)
[2017-07-26 05:55] LABS: ABNORMAL IP MESSAGE 1; BASOPHILS % 0.1 % (0.0-2.0); EOSINOPHILS % 0.3 % (0.0-7.0); HEMATOCRIT 37.3 % (42.0-52.0); HEMOGLOBIN 11.5 g/dl (14.0-18.0); LYMPHOCYTES % 9.5 % (15.0-51.0); MEAN CORPUSCULAR HEMOGLOBIN 24.7 pg (29.0-33.0); MEAN CORPUSCULAR HGB CONC 30.8 g/dl (32.0-37.0); MEAN CORPUSCULAR VOLUME 80.2 fl (82.0-101.0); MEAN PLATELET VOLUME 10.8 fl (7.4-10.4); MONOCYTES % 9.9 % (0.0-11.0); NEUTROPHILS % 79.9 % (39.0-77.0); PLATELET COUNT 217 10^3/UL (140-415); POSITIVE DIFF @See below; RED BLOOD COUNT 4.65 10^6/ul (4.70-6.10)
[2017-07-26 06:13] LABS: CALCIUM 9.1 mg/dl (8.4-10.2); CREATININE 1.62 mg/dl (0.61-1.24); MAGNESIUM 1.5 mg/dl (1.7-2.5); PHOSPHORUS 5.3 mg/dl (2.5-4.9); POTASSIUM 4.3 mmol/L (3.5-5.1)
--- NOTE | 2017-07-26 06:53 | RADRPT ---
PROCEDURE: XR Chest. CLINICAL INDICATION: Respiratory failure TECHNIQUE: AP Portable chest. COMPARISON: CHEST 07/25/2017; CHEST 06/28/2017; JOANNA CHEST 04/27/2016 FINDINGS: ET and NG tubes remain in place. The cardiac silhouette is mildly enlarged. The aortic arch is calcified. There is interval decrease bilateral interstitial densities. No pleural effusion or pneumothorax is seen. The osseous structur es are intact. IMPRESSION: ET and NG tubes in place. Significant interval decrease bilateral interstitial infiltrates or edema. Physician Cristi Date Time Electronically viewed and signed by Sindi Ramos Physician on 07/26/2017 06:53 CS/
[2017-07-26 08:16] LABS: AADO2 Arterial 64.8 mmHg (7.0-24.0); Allen Test ACCEPTAB; Arterial COHb 0.9 % (0.0-3.0); Arterial Fraction of Oxyhgb 97.3 % (93.0-99.0); Arterial HCO3 19.9 mmol/L (22.0-26.0); Arterial MetHb 0.1 % (0.0-1.5); Arterial Total Hemglobin 11.7 g/dl (12.0-18.0); MODE VENT - AC
[2017-07-26] MEDS: FAMOTIDINE 20 MG INJ IV SCH ×2 (08:23→21:25)
[2017-07-26] MEDS: FENTAnyl (DRIP) 1000 mcg/100mL 100 ML IV SCH ×2 (08:23→22:41)
[2017-07-26] MEDS: ASPIRIN 81 MG TAB GTB SCH (08:23)
[2017-07-26] MEDS: ENOXAPARIN 40 MG/0.4 ML SYG SC SCH (08:25)
[2017-07-26] MEDS ORDERED: INFLUENZA VIRUS VACCINE 0.5 ML (DISPENSING) IM* ONE (09:00)
--- NOTE | 2017-07-26 09:20 | CONS ---
Date/Time of Note Date/Time of Note DATE: 07/26/17 TIME: 09:15 Consult Date/Type/Reason Admit Date/Time Jul 25, 2017 at 13:20 Initial Consult Date Type of Consultation: Pulmonary Subjective Patient intubated on mechanical ventilation this morning. CPAP trial attempted however patient experienced increased work of breathing. Objective Vital Signs Date Time Temp Pulse Resp B/P Pulse Ox O2 Delivery O2 Flow Rate FiO2 07/26/17 09:00 67 21 154/81 98 Mechanical Ventilator 07/26/17 08:00 30 07/26/17 08:00 98.5 Intake and Output 07/25/17 07/25/17 07/26/17 15:00 23:00 07:00 Intake Total 394.4 ml 389.4 ml 368.47 ml Output Total 850 ml 731 ml 450 ml Balance -455.6 ml -341.6 ml -81.53 ml Exam PHYSICAL EXAMINATION: GENERAL: An elderly-appearing gentleman, intubated on mechanical ventilation, appears comfortable at rest, no acute distress. VITAL SIGNS: As above HEENT pupils, equal and reactive to light. CARDIAC: S1, S2, no added sounds or murmurs. CHEST: Diminished air entry bilaterally. ABDOMEN: Soft, nontender. No guarding or rebound. EXTREMITIES: No cyanosis, clubbing, 1+ edema. NEUROLOGIC: Generalized weakness. Results/Medications Result Diagram: 07/26/17 0440 07/26/17 0440 Results 24 hrs Laboratory Tests Test 07/25/17 09:43 07/25/17 18:30 07/26/17 00:42 07/26/17 04:40 Blood Gas Specimen Source Blood arterial Arterial Blood Date Drawn 07/25/2017 10:12:51 AM Arterial Blood pH (Temp corrected) 7.325 L Arterial Blood pCO2 (Temp correct) 43.5 Arterial Blood pO2 (Temp corrected) 119.9 H Arterial Blood HCO3 22.2 Arterial Blood Base Excess -3.8 L Arterial Blood Oxygen Saturation 98.2 H Jamir Test ACCEPTAB Arterial Blood Gas Puncture Site Right Brachial Arterial Blood Carboxyhemoglobin 0.9 Arterial Blood Methemoglobin 0.3 Blood Gas A-a O2 Differential 549.6 H Oxyhemoglobin Percent 97.0 Total Hemoglobin 12.5 Blood Gas Temperature 37.0 Blood Gas Respiration Rate 16.0 Blood Gas Actual Respiration Rate 16 Blood Gas Modality VENT - AC FiO2 100.0 Blood Gas Tidal Volume 500.0 Blood Gas Notified Whom MDA Blood Gas Notified Time 07/25/2017 10:19:09 AM Troponin I 0.053 0.066 0.067 White Blood Count 10.0 Red Blood Count 4.65 L Hemoglobin 11.5 L Hematocrit 37.3 L Mean Corpuscular Volume 80.2 L Mean Corpuscular Hemoglobin 24.7 L Mean Corpuscular Hemoglobin Concent 30.8 L Red Cell Distribution Width 26.0 H Platelet Count 217 Mean Platelet Volume 10.8 H Neutrophils % 79.9 H Lymphocytes % 9.5 L Monocytes % 9.9 Eosinophils % 0.3 Basophils % 0.1 Nucleated Red Blood Cells % 0.0 Neutrophils # 8.0 H Lymphocytes # 1.0 Monocytes # 1.0 H Eosinophils # 0.0 Basophils # 0.0 Nucleated Red Blood Cells # 0.0 Sodium Level 137 Potassium Level 4.3 Chloride Level 102 Carbon Dioxide Level 21 Anion Gap 18 #H Blood Urea Nitrogen 23 #H Creatinine 1.62 H Glucose Level 71 # Calcium Level 9.1 Phosphorus Level 5.3 H Magnesium Level 1.5 L Test 07/26/17 07:00 Blood Gas Specimen Source Blood arterial Arterial Blood Date Drawn 07/26/2017 7:20:51 AM Arterial Blood pH (Temp corrected) 7.406 Arterial Blood pCO2 (Temp correct) 32.4 L Arterial Blood pO2 (Temp corrected) 111.0 H Arterial Blood HCO3 19.9 L Arterial Blood Base Excess -4.0 L Arterial Blood Oxygen Saturation 98.3 H Jamir Test ACCEPTAB Arterial Blood Gas Puncture Site Right Radial Arterial Blood Carboxyhemoglobin 0.9 Arterial Blood Methemoglobin 0.1 Blood Gas A-a O2 Differential 64.8 H Oxyhemoglobin Percent 97.3 Total Hemoglobin 11.7 L Blood Gas Temperature 37.0 Blood Gas Respiration Rate 18.0 Blood Gas Actual Respiration Rate 18 Blood Gas Modality VENT - AC FiO2 30.0 Blood Gas Tidal Volume 500.0 Blood Gas Low PEEP Setting 5.0 Blood Gas Notified Whom JLD Blood Gas Notified Time 07/26/2017 8:16:32 AM Medications Current Medications Nicardipine HCl (Cardene Iv) 200 ml @ 50 mls/hr TITRATE IV Last administered on 07/25/17t 07:29; Admin Dose 50 MLS/HR; Start 07/25/17 at 07:25 Acetaminophen (Tylenol Liquid) 650 mg Q6H PRN PO PAIN LEVEL 1-3 OR FEVER; Start 07/25/17 at 12:00 Famotidine 20 mg 20 mg BID IV Last administered on 07/26/17 08:23; Admin Dose 20 MG; Start 07/26/17 at 09:00 Epinephrine/ Dextrose (EPINEPHrine/D5W) 250 ml @ 0 mls/hr TITRATE IV ; Start at 12:30 Enoxaparin Sodium (Lovenox) 40 mg DAILY SC Last administered on 07/26/17 08: 25; Admin Dose 40 MG; Start 07/25/17 at 13:30 Hydralazine HCl (Apresoline) 10 mg Q4H PRN IV SBP > 160; Start 07/25/17 at 17: 30 Aspirin (Aspirin) 81 mg DAILY GTB Last administered on 07/26/17 08:23; Admin Dose 81 MG; Start 07/25/17 at 18:24 Assessment/Plan Chief Complaint/Hosp Course IMPRESSION AND PLAN: 1. Hypertensive urgency. 2. Acute congestive cardiac failure. 3. Hypoxemic respiratory failure, likely secondary to above. 4. History of essential hypertension. PLAN: 1. Continue mechanical ventilation. Patient failed weaning trial this morning. Will repeat tomorrow. 2. Continue Cardene drip for blood pressure management. 3. Echocardiogram and cardiology recommendation. Decreased ejection fraction noted 4. Obtain old notes and data. 5. Deep venous thrombosis and GI prophylaxis. Problems: ANDERSON HILL MD, [facility] Jul 26, 2017 09:20
[2017-07-26] MEDS ORDERED: MAGNESIUM SULFATE 2 GM/50 ML 50 ML IVPB ONE (11:00)
--- NOTE | 2017-07-26 11:13 | PN ---
Date/Time of Note Date/Time of Note DATE: 07/26/17 TIME: 10:29 Assessment/Plan VTE Prophylaxis VTE Prophylaxis Intervention: SCD's Lines/Catheters IV [facility]ter [facility] (from [facility] Peripheral IV Urinary Cath still in place: Yes Reason Cath still needed: other (indicate) (Acute kidney injury) Assessment/Plan Assessment/Plan 62-year-old male with: 1. Cardiac arrest: Etiology unknown. Patient with acute respiratory failure and bradycardia, it is unclear if it etiology is primary respiratory versus cardiac. Currently sinus rhythm, stable from cardiac standpoint so far. It became apparent that the patient may have been enrolled in the clinical trial for medication for patients with congestive heart failure, it is unclear if he actually took it as the papers seems to have been signed on 07/23. Serial troponin negative x 3. Will repeat 2D echocardiogram given the unfortunate events if not done yet. We will consult cardiology, patient was seen by Dr. Martinez on his previous admission. 2. Acute respiratory failure: It is unclear if the patient went into respiratory failure first or had a cardiac event first. He seems to be likely that the patient went into CHF exacerbation and respiratory failure first probably. He is currently on SIMV Continue diuresis, chest x-ray is improved this morning. Pulmonary following 3. Severe cardiomyopathy, previous ejection fraction around 25%, patient was discharged on multiple medications for medical management. Unclear if his been compliant. Unclear if he has followed up with cardiology as an outpatient. We will resume some of outpatient medications, and continue diuresis with Lasix and Aldactone. Repeat 2D echocardiogram and cardiology evaluation. 4. Acute kidney injury on chronic kidney disease, status post respiratory failure and cardiac arrest. Rodriguez catheter in place, strict I's and O's, diuresis with Lasix and Aldactone. Monitor renal function. 5. Hypertensive emergency, patient's blood pressure much better controlled, off Cardene drip since admission to ICU. Will resume his isosorbide, given the bradycardic episode on admission, I will resume his carvedilol after patient evaluated by cardiology and 2D echocardiogram repeated. 6. Loose stools, C. difficile pending. 7. History of seizure disorder, patient has been off medications. According to the sister last grand mal seizures was 2 years ago, patient was also consuming alcohol back then so unclear if it was primary epilepsy versus withdrawal. 8. History of alcohol abuse: On his last admission, patient voiced that he had quit. 9. History of tobacco abuse: Patient has been counseled to quit tobacco hopefully he has quit. If not nicotine patch will be needed. Prophylaxis: Deep venous thrombosis prophylaxis with sequential compression devices and Protonix for gastrointestinal prophylaxis. Disposition: 2D echocardiogram, cardiology evaluation, hopefully CPAP trial and extubation soon. Continue diuresis and monitor renal function. Subjective 24 Hr Interval Summary Free Text/Dictation Patient was put on CPAP trial this morning, he started getting anxious, he is now on SIMV with low-dose propofol and fentanyl. He is waking up he seems to be following commands. Hopefully will be extubated soon. He does have significant cardiomyopathy and given the recent bradycardia of unclear etiology except if respiratory driven. Cardiology will be consulted. Exam/Review of Systems Vital Signs Vitals Vital Signs Date Time Temp Pulse Resp B/P Pulse Ox O2 Delivery O2 Flow Rate FiO2 07/26/17 09:00 67 21 154/81 98 Mechanical Ventilator 07/26/17 08:00 30 07/26/17 08:00 98.5 Intake and Output 07/25/17 07/25/17 07/26/17 15:00 23:00 07:00 Intake Total 394.4 ml 389.4 ml 368.47 ml Output Total 850 ml 731 ml 450 ml Balance -455.6 ml -341.6 ml -81.53 ml Exam Constitutional: alert, other (Still intubated.), well developed Respiratory: diminished breath sounds (At the bases bilaterally), other (On mechanical ventilation SIMV) Cardiovascular: nl pulses, regular rate and rhythm Gastrointestinal: non-tender, soft Neurological: MATH COACH II-XII intact, other (Alert on the ventilator and minimal sedation) Results Result Diagram: 07/26/1743907/26/17439 Results 24 hrs Laboratory Tests Test 07/25/17 18:30 07/26/17 00:42 07/26/17 04:40 07/26/17 07:00 Troponin I 0.053 0.066 0.067 White Blood Count 10.0 Red Blood Count 4.65 L Hemoglobin 11.5 L Hematocrit 37.3 L Mean Corpuscular Volume 80.2 L Mean Corpuscular Hemoglobin 24.7 L Mean Corpuscular Hemoglobin Concent 30.8 L Red Cell Distribution Width 26.0 H Platelet Count 217 Mean Platelet Volume 10.8 H Neutrophils % 79.9 H Lymphocytes % 9.5 L Monocytes % 9.9 Eosinophils % 0.3 Basophils % 0.1 Nucleated Red Blood Cells % 0.0 Neutrophils # 8.0 H Lymphocytes # 1.0 Monocytes # 1.0 H Eosinophils # 0.0 Basophils # 0.0 Nucleated Red Blood Cells # 0.0 Sodium Level 137 Potassium Level 4.3 Chloride Level 102 Carbon Dioxide Level 21 Anion Gap 18 #H Blood Urea Nitrogen 23 #H Creatinine 1.62 H Glucose Level 71 # Calcium Level 9.1 Phosphorus Level 5.3 H Magnesium Level 1.5 L Blood Gas Specimen Source Blood arterial Arterial Blood Date Drawn 07/26/2017 7:20:51 AM Arterial Blood pH (Temp corrected) 7.406 Arterial Blood pCO2 (Temp correct) 32.4 L Arterial Blood pO2 (Temp corrected) 111.0 H Arterial Blood HCO3 19.9 L Arterial Blood Base Excess -4.0 L Arterial Blood Oxygen Saturation 98.3 H Jamir Test ACCEPTAB Arterial Blood Gas Puncture Site Right Radial Arterial Blood Carboxyhemoglobin 0.9 Arterial Blood Methemoglobin 0.1 Blood Gas A-a O2 Differential 64.8 H Oxyhemoglobin Percent 97.3 Total Hemoglobin 11.7 L Blood Gas Temperature 37.0 Blood Gas Respiration Rate 18.0 Blood Gas Actual Respiration Rate 18 Blood Gas Modality VENT - AC FiO2 30.0 Blood Gas Tidal Volume 500.0 Blood Gas Low PEEP Setting 5.0 Blood Gas Notified Whom JLD Blood Gas Notified Time 07/26/2017 8:16:32 AM Imaging Free Text/Dictation PROCEDURE: XR Chest. CLINICAL INDICATION: Respiratory failure TECHNIQUE: AP Portable chest. COMPARISON: CHEST 07/25/2017; CHEST 06/28/2017; JOANNA CHEST 04/27/2016 FINDINGS: ET and NG tubes remain in place. The cardiac silhouette is mildly enlarged. The aortic arch is calcified. There is interval decrease bilateral interstitial densities. No pleural effusion or pneumothorax is seen. The osseous structures are intact. IMPRESSION: ET and NG tubes in place. Significant interval decrease bilateral interstitial infiltrates or edema. Physician Cristi Date Time Electronically viewed and signed by Sindi Ramos, Physician on 07/26/2017 06: 53 Medications Medications Current Medications Nicardipine HCl (Cardene Iv) 200 ml @ 50 mls/hr TITRATE IV Last administered on 07/25/17 07:29; Admin Dose 50 MLS/HR; Start 07/25/17 at 07:25 Acetaminophen (Tylenol Liquid) 650 mg Q6H PRN PO PAIN LEVEL 1-3 OR FEVER; Start 07/25/17 at 12:00 Famotidine 20 mg 20 mg BID IV Last administered on 07/26/17 08:23; Admin Dose 20 MG; Start 07/26/17 at 09:00 Epinephrine/ Dextrose (EPINEPHrine/D5W) 250 ml @ 0 mls/hr TITRATE IV ; Start at 12:30 Enoxaparin Sodium (Lovenox) 40 mg DAILY SC Last administered on 07/26/17 08: 25; Admin Dose 40 MG; Start 07/25/17 at 13:30 Hydralazine HCl (Apresoline) 10 mg Q4H PRN IV SBP > 160; Start 07/25/17 at 17: 30 Aspirin (Aspirin) 81 mg DAILY GTB Last administered on 07/26/17 08:23; Admin Dose 81 MG; Start 07/25/17 at 18:24 ASHISH US Jul 26, 2017 10:39
[2017-07-26] MEDS: FUROSEMIDE 40 MG INJ IV SCH (12:16)
--- NOTE | 2017-07-26 13:24 | CONS ---
Date/Time of Note Date/Time of Note DATE: 07/26/17 TIME: 13:08 Assessment/Plan Assessment/Plan Additional Assessment/Plan Altered mental status Bradycardia with respiratory arrest Hypertension urgency/emergency Severe cardiomyopathy with ejection fraction 25% Acute decompensated systolic congestive heart failure Acute kidney injury History of GI bleed History of alcohol abuse and illicit drug use -Patient currently remains intubated and sedated but does awaken to his name and follow some basic commands. Given systolic blood pressure above 200, would have goal of SBP in the 160s over the next 24 hours. Would DC Aldactone given worsening renal function and refrain from any nephrotoxic medications at the current time. No AV di blocking agents given recent bradycardia. Consultation Date/Type/Reason Admit Date/Time Jul 25, 2017 at 13:20 Type of Consultation: cv Reason for Consultation Possible cardiac arrest Hx of Present Illness This is a 62-year-old male known to me from previous admission with history of cardiomyopathy, congestive heart failure. On review of medical chart and discussion with nursing staff, patient was at home with altered mental status. EMS was called and patient was able to slowly walk and lie down on the stretcher. Symptoms during transport, patient became bradycardic, hypotensive with systolic blood pressure above 200 and worsening mental status. Patient intubated. Patient initially on IV Cardene drip secondary to hypertensive but this has been weaned off. He is currently sedated and intubated on no IV pressors or IV antihypertensives in the ICU. Also of note patient with profuse diarrhea. Unable to be performed at the current time given patient's mental status Past Medical History Hypertension Severe cardiomyopathy with ejection fraction 25% Systolic congestive heart failure Anemia Alcohol abuse History of GI bleed Past Surgical History Past Surgical Hx: no surgical history Social History Smoking Status: Smoker,current status unk Drug Use: other (History of alcohol use and illicit drug use) Exam/Review of Systems Vital Signs Vitals Vital Signs Date Time Temp Pulse Resp B/P Pulse Ox O2 Delivery O2 Flow Rate FiO2 07/26/17 12:00 99.1 61 18 166/81 100 Mechanical Ventilator 07/26/17 12:00 30 Intake and Output 07/25/17 07/25/17 07/26/17 15:00 23:00 07:00 Intake Total 394.4 ml 389.4 ml 368.47 ml Output Total 850 ml 731 ml 450 ml Balance -455.6 ml -341.6 ml -81.53 ml Exam Sedated and intubated but does open his eyes to his name and follow occasional basic commands and answer yes and no questions, no apparent distress Head: normocephalic ENMT: intubated Respiratory: other (Coarse breath sounds bilaterally, no wheezing) Cardiovascular: other (S1-S2 heard), regular rate and rhythm, systolic murmur Gastrointestinal: bowel sounds, non-tender, soft Extremities: edema (Trivial) Results Result Diagram: 07/26/1743907/26/17 0440 Results 24 hrs Laboratory Tests Test 07/25/17 18:30 07/26/17 00:42 07/26/17 04:40 07/26/17 07:00 Troponin I 0.053 0.066 0.067 White Blood Count 10.0 Red Blood Count 4.65 L Hemoglobin 11.5 L Hematocrit 37.3 L Mean Corpuscular Volume 80.2 L Mean Corpuscular Hemoglobin 24.7 L Mean Corpuscular Hemoglobin Concent 30.8 L Red Cell Distribution Width 26.0 H Platelet Count 217 Mean Platelet Volume 10.8 H Neutrophils % 79.9 H Lymphocytes % 9.5 L Monocytes % 9.9 Eosinophils % 0.3 Basophils % 0.1 Nucleated Red Blood Cells % 0.0 Neutrophils # 8.0 H Lymphocytes # 1.0 Monocytes # 1.0 H Eosinophils # 0.0 Basophils # 0.0 Nucleated Red Blood Cells # 0.0 Sodium Level 137 Potassium Level 4.3 Chloride Level 102 Carbon Dioxide Level 21 Anion Gap 18 #H Blood Urea Nitrogen 23 #H Creatinine 1.62 H Glucose Level 71 # Calcium Level 9.1 Phosphorus Level 5.3 H Magnesium Level 1.5 L Blood Gas Specimen Source Blood arterial Arterial Blood Date Drawn 07/26/2017 7:20:51 AM Arterial Blood pH (Temp corrected) 7.406 Arterial Blood pCO2 (Temp correct) 32.4 L Arterial Blood pO2 (Temp corrected) 111.0 H Arterial Blood HCO3 19.9 L Arterial Blood Base Excess -4.0 L Arterial Blood Oxygen Saturation 98.3 H Jamir Test ACCEPTAB Arterial Blood Gas Puncture Site Right Radial Arterial Blood Carboxyhemoglobin 0.9 Arterial Blood Methemoglobin 0.1 Blood Gas A-a O2 Differential 64.8 H Oxyhemoglobin Percent 97.3 Total Hemoglobin 11.7 L Blood Gas Temperature 37.0 Blood Gas Respiration Rate 18.0 Blood Gas Actual Respiration Rate 18 Blood Gas Modality VENT - AC FiO2 30.0 Blood Gas Tidal Volume 500.0 Blood Gas Low PEEP Setting 5.0 Blood Gas Notified Whom JLD Blood Gas Notified Time 07/26/2017 8:16:32 AM Medications Medications Current Medications Nicardipine HCl (Cardene Iv) 200 ml @ 50 mls/hr TITRATE IV Last administered on 07/25/17 07:29; Admin Dose 50 MLS/HR; Start 07/25/17 at 07:25 Acetaminophen (Tylenol Liquid) 650 mg Q6H PRN PO PAIN LEVEL 1-3 OR FEVER; Start 07/25/17 at 12:00 Famotidine 20 mg 20 mg BID IV Last administered on 07/26/17 08:23; Admin Dose 20 MG; Start 07/26/17 at 09:00 Epinephrine/ Dextrose (EPINEPHrine/D5W) 250 ml @ 0 mls/hr TITRATE IV ; Start at 12:30 Enoxaparin Sodium (Lovenox) 40 mg DAILY SC Last administered on 07/26/17 08: 25; Admin Dose 40 MG; Start 07/25/17 at 13:30 Hydralazine HCl (Apresoline) 10 mg Q4H PRN IV SBP > 160; Start 07/25/17 at 17: 30 Aspirin (Aspirin) 81 mg DAILY GTB Last administered on 07/26/17 08:23; Admin Dose 81 MG; Start 07/25/17 at 18:24 Atorvastatin Calcium (Lipitor) 40 mg HS PO ; Start 07/26/17 at 21:00 Ferrous Sulfate (Ferrous Sulfate (Ec)) 325 mg BID PO ; Start 07/26/17 at 21:00 Folic Acid (Folic Acid) 1 mg DAILY PO ; Start 07/27/17 at 09:00 Isosorbide Dinitrate (Isordil) 10 mg TID PO ; Start 07/26/17 at 13:00 Multivitamins Therapeutic (Theragran) 1 tab DAILY PO ; Start 07/27/17 at 09:00 Spironolactone (Aldactone) 25 mg DAILY PO ; Start 07/27/17 at 09:00 Thiamine HCl (Vitamin B1) 100 mg DAILY PO ; Start 07/27/17 at 09:00 Furosemide (Lasix) 40 mg DAILY IV Last administered on 07/26/17t 12:16; Admin Dose 40 MG; Start 07/26/17 at 11:30 David Martinez DO Jul 26, 2017 13:18
[2017-07-26] MEDS: ISOSORBIDE DINITRATE 10 MG TAB PO SCH ×2 (14:06→21:25)
--- NOTE | 2017-07-26 15:50 | RADRPT ---
Echocardiogram Report Patient Name: ROSALIO LEY Gender: Male Date: 1955 Study Date: 26-Jul-2017 [employer] Chief: Roberto [facility] Location: [address] Ref. Physician: MARIANNA US Quality: Adequate Procedures: Transthoracic echocardiogram with complete 2D, M-Mode, and doppler examination. Indications: Evaluate Left Ventricular function. Congestive Heart Failure. 2D/M Mode Doppler Measurement Value Normal Ranges Measurement Value Normal Ranges LVIDd 2D 5.9 3.5 - 5.6 cm AV Peak Laith 1.7 m/sec LVIDs 2D 4.6 2.1 - 4.1 cm AV Peak PG 11.0 mmHg FS 2D 21.9 % AI Peak PG 57.0 mmHg LVPWd 2D 1.5 0.6 - 1.1 cm AI Peak Laith 3.8 m/sec IVSd 2D 1.5 0.6 - 1.1 cm AI PHT 795.0 msec IVS/LVPW 2D 1.0 LVOT Peak Laith 1.1 m/sec AoR Diam 2D 3.1 2.0 - 3.7 cm LVOT Peak PG 5.0 mmHg LA/Ao 2D 1 0 - 1 MV E Peak Laith 0.6 m/sec EDV 2D 204.0 cm3 MV A Peak Laith 0.9 m/sec ESV 2D 97.3 cm3 MV E/A 0.7 LA Dimen 2D 3.6 2.3 - 4.0 cm MV Decel Time 204 msec MV E/A 0.7 Findings Left Ventricle: Normal left ventricular cavity size. Moderate concentric left ventricular hypertrophy. Severe left ventricular systolic dysfunction. Ejection fraction is visually estimated at 25 %. Tissue Doppler/Mitral Doppler indices are consistent with impaired relaxation (Stage I diastolic dysfunction). Right Ventricle: Normal right ventricular size. Normal right ventricular systolic function. Left Atrium: The left atrium is normal in size. Right Atrium: The right atrium is normal in size. Mitral Valve: Mild mitral leaflet calcification. Mild mitral annular calcification. Mild mitral valve regurgitation. Aortic Valve: No significant aortic stenosis. Aortic cusps appear mildly calcified. Mild aortic valve regurgitation. Tricuspid Valve: Normal appearance and function of the tricuspid valve with trace physiologic regurgitation. Pulmonic Valve: Pulmonic valve not well visualized. There is trace pulmonic regurgitation. Pericardium: Normal pericardium with no significant pericardial effusion. Aorta: Normal aortic root. IVC: Inferior vena cava with poor respiratory collapse, however, patient on ventilator. Conclusions 1.Normal left ventricular cavity size. Moderate concentric left ventricular hypertrophy. Severe left ventricular systolic dysfunction. Ejection fraction is visually estimated at 25 %. Tissue Doppler/Mitral Doppler indices are consistent with impaired relaxation (Stage I diastolic dysfunction). 2.Normal right ventricular size. Normal right ventricular systolic function. 3.The left atrium is normal in size. 4.The right atrium is normal in size. 5.Mild mitral valve regurgitation. 6.No significant aortic stenosis. Mild aortic valve regurgitation. 7.Normal pericardium with no significant pericardial effusion. Electronically Signed By: David Martinez 26-Jul-2017 15:50:28 -0800 Patient Name: ROSALIO LEY Study Date: 26-Jul-2017 [id number]
[2017-07-26] MEDS ORDERED: FERROUS SULFATE (EC) 325 MG TAB PO SCH (21:00)
[2017-07-26] MEDS: ATORVASTATIN 40 MG TAB PO SCH (21:25)
[2017-07-27] VITALS (43 sets, daily range): BP systolic 91–178; BP diastolic 62–139; PULSE 50–80; RESP 9–25
[2017-07-27] MEDS: PROPOFOL 100 ML IV SCH (03:22)
[2017-07-27 06:06] LABS: ABNORMAL IP MESSAGE 1; BASOPHILS % 0.3 % (0.0-2.0); EOSINOPHILS # 0.3 10^3/ul (0.0-0.5); EOSINOPHILS % 2.9 % (0.0-7.0); HEMOGLOBIN 10.8 g/dl (14.0-18.0); LYMPHOCYTES # 1.6 10^3/ul (0.8-2.9); LYMPHOCYTES % 17.8 % (15.0-51.0); MEAN CORPUSCULAR HEMOGLOBIN 25.7 pg (29.0-33.0); MEAN CORPUSCULAR HGB CONC 31.8 g/dl (32.0-37.0); MEAN CORPUSCULAR VOLUME 80.8 fl (82.0-101.0); MEAN PLATELET VOLUME 10.5 fl (7.4-10.4); MONOCYTE # 1.3 10^3/ul (0.3-0.9); MONOCYTES % 14.1 % (0.0-11.0); NEUTROPHIL # 5.8 10^3/ul (1.6-7.5); NEUTROPHILS % 64.6 % (39.0-77.0); PLATELET COUNT 202 10^3/UL (140-415); POSITIVE DIFF @See below; RED BLOOD COUNT 4.21 10^6/ul (4.70-6.10)
[2017-07-27 06:23] LABS: ALBUMIN 3.4 g/dl (3.3-4.9); ALBUMIN/GLOBULIN RATIO 0.91; BILIRUBIN,INDIRECT 0.1 mg/dl (0-1.1); BILIRUBIN,TOTAL 0.1 mg/dl (0.2-1.3); CALCIUM 8.7 mg/dl (8.4-10.2); CREATININE 2.28 mg/dl (0.61-1.24); POTASSIUM 3.7 mmol/L (3.5-5.1); TOTAL PROTEIN 7.1 g/dl (6.1-8.1)
[2017-07-27 06:29] LABS: MAGNESIUM 2.3 mg/dl (1.7-2.5); PHOSPHORUS 3.9 mg/dl (2.5-4.9)
[2017-07-27 07:45] LABS: Allen Test ACCEPTAB; Arterial COHb 0.4 % (0.0-3.0); Arterial Fraction of Oxyhgb 97.2 % (93.0-99.0); Arterial HCO3 20.8 mmol/L (22.0-26.0); Arterial MetHb 0.2 % (0.0-1.5); Arterial Total Hemglobin 11.8 g/dl (12.0-18.0); MODE VENT - AC
--- NOTE | 2017-07-27 08:02 | RADRPT ---
PROCEDURE: XR Chest. CLINICAL INDICATION: CHF TECHNIQUE: 2 AP views of the chest were obtained COMPARISON: Chest x-ray dated 07/26/2017 FINDINGS: The endotracheal tube tip is approximately 3.8 cm above the kasia. The tip of the enteric tube ex tends below the left diaphragm. No focal airspace opacification, pleural effusion or pneumothorax is seen. The cardiomediastinal si lhouette is within normal limits for size. Calcifications are seen within the aortic arch. The osse ous structures are unremarkable. IMPRESSION: 1. No radiographic evidence of acute cardiopulmonary disease. 2. Aortic atherosclerosis. 3. Tubes and lines, as described above. RPTAT: HH .Lorena Allen MD, MD Date Time Electronically viewed and signed by .Lorena Allen MD, on 07/27/2017 08:02 .G/
[2017-07-27] MEDS ORDERED: SPIRONOLACTONE 25 MG TAB PO SCH (09:00)
--- NOTE | 2017-07-27 09:00 | CONS ---
Date/Time of Note Date/Time of Note DATE: 07/27/17 TIME: 08:59 Assessment/Plan Assessment/Plan Additional Assessment/Plan 1. acute kidney injury on CKD due to hemodyanicas from CHF 2. acute CHF exacerbation, acute on chronic 3. Cardiomyopathy wtih low EF 25% 4. acute resp failrue requiring Ventilator care 5. H/o sezure disorder 6> severe bradycardia Plan: Urine output dropping down possible plan for extubation today continue iV lasix for diuresis will give albumin prior to Lasix Urine stuides and renal US has been ordered will continue to follow up on patient Consultation Date/Type/Reason Admit Date/Time Jul 25, 2017 at 13:20 Date of Consultation: Jul 27, 2017 Type of Consultation: NEPHROLOGY Reason for Consultation acute kidney injury, Oliguric, vs acute kidney injury on CKD Referring Provider: ASHISH US Hx of Present Illness 62-year-old -Tog[place] male with a history of cardiomyopathy (ejection fraction of approximately 25% to 30%), congestive heart failure, microcytic anemia, uncontrolled hypertension, current tobacco abuse, current alcohol abuse , and cocaine abuse, as well as gastritis and gastric ulcers on previous endoscopy, who was in his usual state of health at home. The patient did not feel well and per the record started feeling confused and weak. At that time, he summoned 911. The patient was seen by EMS and in transport he became bradycardic into the 30s. The patient arrived in the emergency department and was emergently intubated. His systolic blood pressure was approximately 200 and his heart rate did rebound. He was started on a Cardene drip and emergently intubated as stated above. The patient was placed on propofol and given 60 mg of intravenous Lasix as well as antibiotics and sent to the intensive care unit for further evaluation and treatment. pt had a severe bradycardia but never lost pulse, he required intubation for acute respi failure Renal has been consulted for acute on chronic renal failure and decreased urine output Subjective hx not possible: pt non-verbal Past Surgical History Past Surgical Hx: no surgical history Social History Smoking Status: Smoker,current status unk Drug Use: other (History of alcohol use and illicit drug use) Exam/Review of Systems Vital Signs Vitals Vital Signs Date Time Temp Pulse Resp B/P Pulse Ox O2 Delivery O2 Flow Rate FiO2 07/27/17 06:30 56 18 123/85 100 Mechanical Ventilator 07/27/17 05:42 30 07/27/17 04:00 97.3 Intake and Output 07/26/17 07/26/17 07/27/17 15:00 23:00 07:00 Intake Total 139.259 ml 414.012 ml 466.601 ml Output Total 240 ml 320 ml 210 ml Balance -100.741 ml 94.012 ml 256.601 ml Exam Constitutional: alert, oriented, other (Minimal sedation, on vent.) Respiratory: diminished breath sounds (Bilateral bases), other (On vent) Cardiovascular: nl pulses, regular rate and rhythm Gastrointestinal: non-tender, soft Musculoskeletal: nl extremities to inspection Extremities: normal pulses, other (No clubbing or cyanosis, trace edema.) Neurological: TUNNEL ELASTIC OPERATOR ZIGZAG II-XII intact, other (Sedated, on mechanical ventilation) Results Result Diagram: 07/27/17 0505 07/27/17 0505 Results 24 hrs Laboratory Tests Test 07/26/17 12:06 07/26/17 18:16 07/27/17 05:05 07/27/17 07:00 Troponin I 0.051 0.054 White Blood Count 9.0 Red Blood Count 4.21 L Hemoglobin 10.8 L Hematocrit 34.0 L Mean Corpuscular Volume 80.8 L Mean Corpuscular Hemoglobin 25.7 L Mean Corpuscular Hemoglobin Concent 31.8 L Red Cell Distribution Width 26.0 H Platelet Count 202 Mean Platelet Volume 10.5 H Neutrophils % 64.6 Lymphocytes % 17.8 Monocytes % 14.1 H Eosinophils % 2.9 Basophils % 0.3 Nucleated Red Blood Cells % 0.0 Neutrophils # 5.8 Lymphocytes # 1.6 Monocytes # 1.3 H Eosinophils # 0.3 Basophils # 0.0 Nucleated Red Blood Cells # 0.0 Sodium Level 135 Potassium Level 3.7 Chloride Level 102 Carbon Dioxide Level 23 Anion Gap 14 Blood Urea Nitrogen 27 H Creatinine 2.28 H Glucose Level 113 # Calcium Level 8.7 Phosphorus Level 3.9 Magnesium Level 2.3 Total Bilirubin 0.1 L Direct Bilirubin 0.00 Indirect Bilirubin 0.1 Aspartate Amino Transf (AST/SGOT) 23 Alanine Aminotransferase (ALT/SGPT) 27 Alkaline Phosphatase 146 H Total Protein 7.1 Albumin 3.4 Globulin 3.70 H Albumin/Globulin Ratio 0.91 Blood Gas Specimen Source Blood arterial Arterial Blood Date Drawn 07/27/2017 7:20:46 AM Arterial Blood pH (Temp corrected) 7.414 Arterial Blood pCO2 (Temp correct) 33.3 L Arterial Blood pO2 (Temp corrected) 105.8 H Arterial Blood HCO3 20.8 L Arterial Blood Base Excess -3.0 Arterial Blood Oxygen Saturation 97.8 Jamir Test ACCEPTAB Arterial Blood Gas Puncture Site Right Radial Arterial Blood Carboxyhemoglobin 0.4 Arterial Blood Methemoglobin 0.2 Blood Gas A-a O2 Differential 69.0 H Oxyhemoglobin Percent 97.2 Total Hemoglobin 11.8 L Blood Gas Temperature 37.0 Blood Gas Respiration Rate 18.0 Blood Gas Actual Respiration Rate 18 Blood Gas Modality VENT - AC FiO2 30.0 Blood Gas Tidal Volume 500.0 Blood Gas Low PEEP Setting 5.0 Blood Gas Notified Whom JLD Blood Gas Notified Time 07/27/2017 7:45:23 AM Medications Medications Current Medications Nicardipine HCl (Cardene Iv) 200 ml @ 50 mls/hr TITRATE IV Last administered on 07/25/17 07:29; Admin Dose 50 MLS/HR; Start 07/25/17 at 07:25 Acetaminophen (Tylenol Liquid) 650 mg Q6H PRN PO PAIN LEVEL 1-3 OR FEVER; Start 07/25/17 at 12:00 Famotidine 20 mg 20 mg BID IV Last administered on 07/26/17 21:25; Admin Dose 20 MG; Start 07/26/17 at 09:00 Epinephrine/ Dextrose (EPINEPHrine/D5W) 250 ml @ 0 mls/hr TITRATE IV ; Start at 12:30 Enoxaparin Sodium (Lovenox) 40 mg DAILY SC Last administered on 07/26/17 08: 25; Admin Dose 40 MG; Start 07/25/17 at 13:30 Hydralazine HCl (Apresoline) 10 mg Q4H PRN IV SBP > 160; Start 07/25/17 at 17: 30 Aspirin (Aspirin) 81 mg DAILY GTB Last administered on 07/26/17 08:23; Admin Dose 81 MG; Start 07/25/17 at 18:24 Atorvastatin Calcium (Lipitor) 40 mg HS PO Last administered on 07/26/17 21: 25; Admin Dose 40 MG; Start 07/26/17 at 21:00 Folic Acid (Folic Acid) 1 mg DAILY PO ; Start 07/27/17 at 09:00 Isosorbide Dinitrate (Isordil) 10 mg TID PO Last administered on 07/26/17 21: 25; Admin Dose 10 MG; Start 07/26/17 at 13:00 Multivitamins Therapeutic (Theragran) 1 tab DAILY PO ; Start 07/27/17 at 09:00 Thiamine HCl (Vitamin B1) 100 mg DAILY PO ; Start 07/27/17 at 09:00 Furosemide (Lasix) 40 mg DAILY IV Last administered on 07/26/17 12:16; Admin Dose 40 MG; Start 07/26/17 at 11:30 Ferrous Sulfate (Feosol Liquid Cup) 300 mg BID NGT ; Start 07/27/17 at 09:00 JAMILA GARCÍA MD Jul 27, 2017 09:00
[2017-07-27] MEDS ORDERED: ALBUMIN HUMAN 25% 100 ML IV ONE (09:30)
[2017-07-27] MEDS: THIAMINE 100 MG TAB PO SCH (09:38)
[2017-07-27] MEDS: FERROUS SULFATE 60 MG/ML 5ML CUP NGT SCH ×2 (09:38→20:08)
[2017-07-27] MEDS: ASPIRIN 81 MG TAB GTB SCH (09:38)
[2017-07-27] MEDS: MULTIVITAMINS THERAPEUTIC TAB PO SCH (09:38)
[2017-07-27] MEDS: FOLIC ACID 1 MG TAB PO SCH (09:39)
[2017-07-27] MEDS: ISOSORBIDE DINITRATE 10 MG TAB PO SCH ×3 (09:39→20:09)
[2017-07-27] MEDS: ENOXAPARIN 40 MG/0.4 ML SYG SC SCH (09:40)
--- NOTE | 2017-07-27 09:57 | PN ---
Date/Time of Note Date/Time of Note DATE: 07/27/17 TIME: 09:44 Assessment/Plan VTE Prophylaxis VTE Prophylaxis Intervention: LMWH Lines/Catheters IV [facility]ter Type (from [facility] Peripheral IV Urinary Cath still in place: Yes Reason Cath still needed: other (indicate) (Acute kidney injury, diuresis) Assessment/Plan Assessment/Plan 62-year-old male with: 1. Episode of severe bradycardia: Now per report patient has never lost his pulse. Patient with acute respiratory failure and bradycardia, etiology is likely primary respiratory. Currently sinus rhythm, stable from cardiac standpoint so far. It became apparent that the patient may have been enrolled in the clinical trial for medication for patients with congestive heart failure, it is unclear if he actually took it as the papers seems to have been signed on 07/23. Serial troponin negative x 3. Repeat 2D echocardiogram with ejection fraction unchanged at 25% Dr. Martinez following. 2. Acute respiratory failure: It is unclear if the patient went into respiratory failure first or had a cardiac event first. He seems to be likely that the patient went into CHF exacerbation and respiratory failure first probably. Chest x-ray looks much better, patient more euvolemic, hopefully to be extubated today. Continue diuresis, nephrology will be assisting. Pulmonary following 3. Severe cardiomyopathy, previous ejection fraction around 25%, patient was discharged on multiple medications for medical management. Unclear if his been compliant. According to his sister, patient has followed up with cardiology last week, according to the girlfriend, patient actually consumes raw salt which would be a major dietary indiscretion in his case. Aldactone has been discontinued, patient to receive albumin along with Lasix today for diuresis. Chest x-ray much improved and patient overall volume status much improved. 4. Acute kidney injury on chronic kidney disease, status post respiratory failure and cardiac arrest. Nephrology consult today with Dr. Bermeo. Rodriguez catheter in place, strict I's and O's, diuresis with Lasix and albumin. Monitor renal function. 5. Hypertensive emergency, patient's blood pressure much better controlled, off Cardene drip since admission to ICU. Back on Isosorbide, given the bradycardic episode on admission, Follow-up cardiology commendations, for now heart rate still running less than 60 and patient is being kept off beta-blockers. 6. Loose stools, resolved, C. difficile negative. 7. History of seizure disorder, patient has been off medications. No seizures. According to the sister last grand mal seizures was 2 years ago, patient was also consuming alcohol back then so unclear if it was primary epilepsy versus withdrawal. 8. History of alcohol abuse: On his last admission, patient voiced that he had quit. 9. History of tobacco abuse: Patient has been counseled to quit tobacco hopefully he has quit. If not nicotine patch will be needed. Prophylaxis: Lovenox for DVT prophylaxis and Protonix for gastrointestinal prophylaxis. Disposition: Follow-up cardiology and nephrology recommendations. Hopefully CPAP trial and extubation today. Continue diuresis and monitor renal function. Subjective 24 Hr Interval Summary Free Text/Dictation Patient seems to be more comfortable, renal function has decreased however patient has been diuresed well, chest x-ray is clear and trace edema on exam. Hopefully will be extubated today. He will be receiving albumin and additional dose of Lasix. Nephrology has been consulted given declining renal function. Repeat echocardiogram is unchanged ejection fraction, still 25% Exam/Review of Systems Vital Signs Vitals Vital Signs Date Time Temp Pulse Resp B/P Pulse Ox O2 Delivery O2 Flow Rate FiO2 07/27/17 09:16 51 18 100 30 07/27/17 06:30 123/85 Mechanical Ventilator 07/27/17 04:00 97.3 Intake and Output 07/26/17 07/26/17 07/27/17 15:00 23:00 07:00 Intake Total 139.259 ml 414.012 ml 466.601 ml Output Total 240 ml 320 ml 210 ml Balance -100.741 ml 94.012 ml 256.601 ml Exam Constitutional: alert, oriented, other (Minimal sedation, on vent.) Respiratory: diminished breath sounds (Bilateral bases), other (On vent) Cardiovascular: nl pulses, regular rate and rhythm Gastrointestinal: non-tender, soft Musculoskeletal: nl extremities to inspection Extremities: normal pulses, other (No clubbing or cyanosis, trace edema.) Neurological: 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 PICKLING EQUIPMENT OPERATOR II-XII intact, other (Sedated, on mechanical ventilation) Results Result Diagram: 07/27/17 0505 07/27/17 0505 Results 24 hrs Laboratory Tests Test 07/26/17 12:06 07/26/17 18:16 07/27/17 05:05 11/14/17 07:00 Troponin I 0.051 0.054 White Blood Count 9.0 Red Blood Count 4.21 L Hemoglobin 10.8 L Hematocrit 34.0 L Mean Corpuscular Volume 80.8 L Mean Corpuscular Hemoglobin 25.7 L Mean Corpuscular Hemoglobin Concent 31.8 L Red Cell Distribution Width 26.0 H Platelet Count 202 Mean Platelet Volume 10.5 H Neutrophils % 64.6 Lymphocytes % 17.8 Monocytes % 14.1 H Eosinophils % 2.9 Basophils % 0.3 Nucleated Red Blood Cells % 0.0 Neutrophils # 5.8 Lymphocytes # 1.6 Monocytes # 1.3 H Eosinophils # 0.3 Basophils # 0.0 Nucleated Red Blood Cells # 0.0 Sodium Level 135 Potassium Level 3.7 Chloride Level 102 Carbon Dioxide Level 23 Anion Gap 14 Blood Urea Nitrogen 27 H Creatinine 2.28 H Glucose Level 113 # Calcium Level 8.7 Phosphorus Level 3.9 Magnesium Level 2.3 Total Bilirubin 0.1 L Direct Bilirubin 0.00 Indirect Bilirubin 0.1 Aspartate Amino Transf (AST/SGOT) 23 Alanine Aminotransferase (ALT/SGPT) 27 Alkaline Phosphatase 146 H Total Protein 7.1 Albumin 3.4 Globulin 3.70 H Albumin/Globulin Ratio 0.91 Blood Gas Specimen Source Blood arterial Arterial Blood Date Drawn 07/27/2017 7:20:46 AM Arterial Blood pH (Temp corrected) 7.414 Arterial Blood pCO2 (Temp correct) 33.3 L Arterial Blood pO2 (Temp corrected) 105.8 H Arterial Blood HCO3 20.8 L Arterial Blood Base Excess -3.0 Arterial Blood Oxygen Saturation 97.8 Jamir Test ACCEPTAB Arterial Blood Gas Puncture Site Right Radial Arterial Blood Carboxyhemoglobin 0.4 Arterial Blood Methemoglobin 0.2 Blood Gas A-a O2 Differential 69.0 H Oxyhemoglobin Percent 97.2 Total Hemoglobin 11.8 L Blood Gas Temperature 37.0 Blood Gas Respiration Rate 18.0 Blood Gas Actual Respiration Rate 18 Blood Gas Modality VENT - AC FiO2 30.0 Blood Gas Tidal Volume 500.0 Blood Gas Low PEEP Setting 5.0 Blood Gas Notified Whom JLD Blood Gas Notified Time 07/27/2017 7:45:23 AM Imaging Free Text/Dictation PROCEDURE: XR Chest. CLINICAL INDICATION: CHF TECHNIQUE: 2 AP views of the chest were obtained COMPARISON: Chest x-ray dated 07/26/2017 FINDINGS: The endotracheal tube tip is approximately 3.8 cm above the kasia. The tip of the enteric tube extends below the left diaphragm. No focal airspace opacification, pleural effusion or pneumothorax is seen. The cardiomediastinal silhouette is within normal limits for size. Calcifications are seen within the aortic arch. The osseous structures are unremarkable. IMPRESSION: 1. No radiographic evidence of acute cardiopulmonary disease. 2. Aortic atherosclerosis. 3. Tubes and lines, as described above. Medications Medications Current Medications Nicardipine HCl (Cardene Iv) 200 ml @ 50 mls/hr TITRATE IV Last administered on 07/25/17 07:29; Admin Dose 50 MLS/HR; Start 07/25/17 at 07:25 Acetaminophen (Tylenol Liquid) 650 mg Q6H PRN PO PAIN LEVEL 1-3 OR FEVER; Start 07/25/17 at 12:00 Famotidine 20 mg 20 mg BID IV Last administered on 07/26/17 21:25; Admin Dose 20 MG; Start 07/26/17 at 09:00 Epinephrine/ Dextrose (EPINEPHrine/D5W) 250 ml @ 0 mls/hr TITRATE IV ; Start at 12:30 Enoxaparin Sodium (Lovenox) 40 mg DAILY SC Last administered on 07/27/17 09: 40; Admin Dose 40 MG; Start 07/25/17 at 13:30 Hydralazine HCl (Apresoline) 10 mg Q4H PRN IV SBP > 160; Start 07/25/17 at 17: 30 Aspirin (Aspirin) 81 mg DAILY GTB Last administered on 07/27/17 09:38; Admin Dose 81 MG; Start 07/25/17 at 18:24 Atorvastatin Calcium (Lipitor) 40 mg HS PO Last administered on 07/26/17 21: 25; Admin Dose 40 MG; Start 07/26/17 at 21:00 Folic Acid (Folic Acid) 1 mg DAILY PO Last administered on 07/27/17 09:39; Admin Dose 1 MG; Start 07/27/17 at 09:00 Isosorbide Dinitrate (Isordil) 10 mg TID PO Last administered on 07/27/17 09: 39; Admin Dose 10 MG; Start 07/26/17 at 13:00 Multivitamins Therapeutic (Theragran) 1 tab DAILY PO Last administered on 07/27 09:38; Admin Dose 1 TAB; Start 07/27/17 at 09:00 Thiamine HCl (Vitamin B1) 100 mg DAILY PO Last administered on 07/27/17 09:38 ; Admin Dose 100 MG; Start 07/27/17 at 09:00 Furosemide (Lasix) 40 mg DAILY IV Last administered on 07/26/17 12:16; Admin Dose 40 MG; Start 07/26/17 at 11:30 Ferrous Sulfate 300 mg 300 mg BID NGT Last administered on 07/27/17 09:38; Admin Dose 300 MG; Start 07/27/17 at 09:00 Albumin Human (Albumin Human 25%) 100 ml @ 100 mls/hr ONCE ONCE IV Last administered on 07/27/17 09:43; Admin Dose 100 MLS/HR; Start 07/27/17 at 09: 30; Stop 07/27/17 at 10:29 Procedures Procedures Echocardiogram Report Patient Name: ROSALIO LEY Gender: Male Date: 1955 Study Date: 26-Jul-2017 Business Support Administrator: Roberto [facility] Location: [id number] Ref. Physician: MARIANNA US Quality: Adequate Procedures: Transthoracic echocardiogram with complete 2D, M-Mode, and doppler examination. Indications: Evaluate Left Ventricular function. Congestive Heart Failure. 2D/M Mode Doppler Measurement Value Normal Ranges Measurement Value Normal Ranges LVIDd 2D 5.9 3.5 - 5.6 cm AV Peak Laith 1.7 m/sec LVIDs 2D 4.6 2.1 - 4.1 cm AV Peak PG 11.0 mmHg FS 2D 21.9 % AI Peak PG 57.0 mmHg LVPWd 2D 1.5 0.6 - 1.1 cm AI Peak Laith 3.8 m/sec IVSd 2D 1.5 0.6 - 1.1 cm AI PHT 795.0 msec IVS/LVPW 2D 1.0 LVOT Peak Laith 1.1 m/sec AoR Diam 2D 3.1 2.0 - 3.7 cm LVOT Peak PG 5.0 mmHg LA/Ao 2D 1 0 - 1 MV E Peak Laith 0.6 m/sec EDV 2D 204.0 cm3 MV A Peak Laith 0.9 m/sec ESV 2D 97.3 cm3 MV E/A 0.7 LA Dimen 2D 3.6 2.3 - 4.0 cm MV Decel Time 204 msec MV E/A 0.7 Findings Left Ventricle: Normal left ventricular cavity size. Moderate concentric left ventricular hypertrophy. Severe left ventricular systolic dysfunction. Ejection fraction is visually estimated at 25 %. Tissue Doppler/Mitral Doppler indices are consistent with impaired relaxation (Stage I diastolic dysfunction). Right Ventricle: Normal right ventricular size. Normal right ventricular systolic function. Left Atrium: The left atrium is normal in size. Right Atrium: The right atrium is normal in size. Mitral Valve: Mild mitral leaflet calcification. Mild mitral annular calcification. Mild mitral valve regurgitation. Aortic Valve: No significant aortic stenosis. Aortic cusps appear mildly calcified. Mild aortic valve regurgitation. Tricuspid Valve: Normal appearance and function of the tricuspid valve with trace physiologic regurgitation. Pulmonic Valve: Pulmonic valve not well visualized. There is trace pulmonic regurgitation. Pericardium: Normal pericardium with no significant pericardial effusion. Aorta: Normal aortic root. IVC: Inferior vena cava with poor respiratory collapse, however, patient on ventilator. Conclusions 1. Normal left ventricular cavity size. Moderate concentric left ventricular hypertrophy. Severe left ventricular systolic dysfunction. Ejection fraction is visually estimated at 25 %. Tissue Doppler/Mitral Doppler indices are consistent with impaired relaxation (Stage I diastolic dysfunction). 2. Normal right ventricular size. Normal right ventricular systolic function. 3. The left atrium is normal in size. 4. The right atrium is normal in size. 5. Mild mitral valve regurgitation. 6. No significant aortic stenosis. Mild aortic valve regurgitation. 7. Normal pericardium with no significant pericardial effusion. Electronically Signed By: David Martinez 26-Jul-2017 15:50:28 -0800 ASHISH US Jul 27, 2017 09:55
--- NOTE | 2017-07-27 09:57 | RADRPT ---
PROCEDURE: Renal US. CLINICAL INDICATION: acute renalfailure, decreeased Urine output TECHNIQUE: Multiple sonographic images of the kidneys were obtained. The images were reviewed on a PACS workstation. COMPARISON: No prior studies are available for comparison. FINDINGS: The kidneys are well visualized. The right kidney measures 9.7 cm. The left kidney measures 10.4 cm. There are no focal areas of abnormal echogenicity. There is no evidence for obstructive uropathy. T he bladder is unremarkable. A Rodriguez catheter is present. IMPRESSION: 1. Unremarkable renal ultrasound. RPTAT:AAJJ Physician Franklin Date Time Electronically viewed and signed by Physician Franklin on 07/27/2017 09:56 /
[2017-07-27] MEDS: FAMOTIDINE 20 MG INJ IV SCH ×2 (10:02→20:44)
--- NOTE | 2017-07-27 10:09 | CONS ---
Date/Time of Note Date/Time of Note DATE: 07/27/17 TIME: 10:08 Consult Date/Type/Reason Admit Date/Time Jul 25, 2017 at 13:20 Type of Consultation: Pulmonary Ordering Provider: ASHISH US Subjective Failed CPAP trial yesterday. Comfortable overnight. No vasopressor support. Pending diuresis with albumin and Lasix. Objective Vital Signs Date Time Temp Pulse Resp B/P Pulse Ox O2 Delivery O2 Flow Rate FiO2 07/27/17 09:16 51 18 100 30 07/27/17 06:30 123/85 Mechanical Ventilator 07/27/17 04:00 97.3 Intake and Output 07/26/17 07/26/17 07/27/17 15:00 23:00 07:00 Intake Total 139.259 ml 414.012 ml 466.601 ml Output Total 240 ml 320 ml 210 ml Balance -100.741 ml 94.012 ml 256.601 ml Exam PHYSICAL EXAMINATION: GENERAL: An elderly-appearing gentleman, intubated on mechanical ventilation, appears comfortable at rest, no acute distress. VITAL SIGNS: As above HEENT pupils, equal and reactive to light. CARDIAC: S1, S2, no added sounds or murmurs. CHEST: Diminished air entry bilaterally. ABDOMEN: Soft, nontender. No guarding or rebound. EXTREMITIES: No cyanosis, clubbing, 1+ edema. NEUROLOGIC: Generalized weakness. Results/Medications Result Diagram: 07/27/17 0505 07/27/17 0505 Results 24 hrs Laboratory Tests Test 07/26/17 12:06 07/26/17 18:16 07/27/17 05:05 07/27/17 07:00 Troponin I 0.051 0.054 White Blood Count 9.0 Red Blood Count 4.21 L Hemoglobin 10.8 L Hematocrit 34.0 L Mean Corpuscular Volume 80.8 L Mean Corpuscular Hemoglobin 25.7 L Mean Corpuscular Hemoglobin Concent 31.8 L Red Cell Distribution Width 26.0 H Platelet Count 202 Mean Platelet Volume 10.5 H Neutrophils % 64.6 Lymphocytes % 17.8 Monocytes % 14.1 H Eosinophils % 2.9 Basophils % 0.3 Nucleated Red Blood Cells % 0.0 Neutrophils # 5.8 Lymphocytes # 1.6 Monocytes # 1.3 H Eosinophils # 0.3 Basophils # 0.0 Nucleated Red Blood Cells # 0.0 Sodium Level 135 Potassium Level 3.7 Chloride Level 102 Carbon Dioxide Level 23 Anion Gap 14 Blood Urea Nitrogen 27 H Creatinine 2.28 H Glucose Level 113 # Calcium Level 8.7 Phosphorus Level 3.9 Magnesium Level 2.3 Total Bilirubin 0.1 L Direct Bilirubin 0.00 Indirect Bilirubin 0.1 Aspartate Amino Transf (AST/SGOT) 23 Alanine Aminotransferase (ALT/SGPT) 27 Alkaline Phosphatase 146 H Total Protein 7.1 Albumin 3.4 Globulin 3.70 H Albumin/Globulin Ratio 0.91 Blood Gas Specimen Source Blood arterial Arterial Blood Date Drawn 07/27/2017 7:20:46 AM Arterial Blood pH (Temp corrected) 7.414 Arterial Blood pCO2 (Temp correct) 33.3 L Arterial Blood pO2 (Temp corrected) 105.8 H Arterial Blood HCO3 20.8 L Arterial Blood Base Excess -3.0 Arterial Blood Oxygen Saturation 97.8 Jamir Test ACCEPTAB Arterial Blood Gas Puncture Site Right Radial Arterial Blood Carboxyhemoglobin 0.4 Arterial Blood Methemoglobin 0.2 Blood Gas A-a O2 Differential 69.0 H Oxyhemoglobin Percent 97.2 Total Hemoglobin 11.8 L Blood Gas Temperature 37.0 Blood Gas Respiration Rate 18.0 Blood Gas Actual Respiration Rate 18 Blood Gas Modality VENT - AC FiO2 30.0 Blood Gas Tidal Volume 500.0 Blood Gas Low PEEP Setting 5.0 Blood Gas Notified Whom JLD Blood Gas Notified Time 07/27/2017 7:45:23 AM Medications Current Medications Nicardipine HCl (Cardene Iv) 200 ml @ 50 mls/hr TITRATE IV Last administered on 07/25/17 07:29; Admin Dose 50 MLS/HR; Start 07/25/17 at 07:25 Acetaminophen (Tylenol Liquid) 650 mg Q6H PRN PO PAIN LEVEL 1-3 OR FEVER; Start 07/25/17 at 12:00 Famotidine 20 mg 20 mg BID IV Last administered on 07/27/17 10:02; Admin Dose 20 MG; Start 07/26/17 at 09:00 Epinephrine/ Dextrose (EPINEPHrine/D5W) 250 ml @ 0 mls/hr TITRATE IV ; Start at 12:30 Enoxaparin Sodium (Lovenox) 40 mg DAILY SC Last administered on 07/27/17 09: 40; Admin Dose 40 MG; Start 07/25/17 at 13:30 Hydralazine HCl (Apresoline) 10 mg Q4H PRN IV SBP > 160; Start 07/25/17 at 17: 30 Aspirin (Aspirin) 81 mg DAILY GTB Last administered on 07/27/17 09:38; Admin Dose 81 MG; Start 07/25/17 at 18:24 Atorvastatin Calcium (Lipitor) 40 mg HS PO Last administered on 07/26/17 21: 25; Admin Dose 40 MG; Start 07/26/17 at 21:00 Folic Acid (Folic Acid) 1 mg DAILY PO Last administered on 07/27/17 09:39; Admin Dose 1 MG; Start 07/27/17 at 09:00 Isosorbide Dinitrate (Isordil) 10 mg TID PO Last administered on 07/27/17 09: 39; Admin Dose 10 MG; Start 07/26/17 at 13:00 Multivitamins Therapeutic (Theragran) 1 tab DAILY PO Last administered on 07/27 09:38; Admin Dose 1 TAB; Start 07/27/17 at 09:00 Thiamine HCl (Vitamin B1) 100 mg DAILY PO Last administered on 07/27/17 09:38 ; Admin Dose 100 MG; Start 07/27/17 at 09:00 Furosemide (Lasix) 40 mg DAILY IV Last administered on 07/26/17 12:16; Admin Dose 40 MG; Start 07/26/17 at 11:30 Ferrous Sulfate 300 mg 300 mg BID NGT Last administered on 07/27/17 09:38; Admin Dose 300 MG; Start 07/27/17 at 09:00 Albumin Human (Albumin Human 25%) 100 ml @ 100 mls/hr ONCE ONCE IV Last administered on 07/27/17 09:43; Admin Dose 100 MLS/HR; Start 07/27/17 at 09: 30; Stop 07/27/17 at 10:29 Assessment/Plan Chief Complaint/Hosp Course IMPRESSION AND PLAN: 1. Status post hypertensive urgency. 2. Acute congestive cardiac failure. 3. Hypoxemic respiratory failure, likely secondary to above. Chest x-ray is clear now. 4. History of essential hypertension. PLAN: 1. Continue mechanical ventilation. CPAP trial this morning. Hopefully safely extubate. 2. Continue current recommendations for blood pressure management 3. Speech therapy evaluation postextubation 4. Obtain old notes and data. 5. Deep venous thrombosis and GI prophylaxis. Discussed with staff at length. Problems: ANDERSON HILL MD, [facility] Jul 27, 2017 10:09
[2017-07-27] MEDS: FUROSEMIDE 40 MG INJ IV SCH (10:59)
[2017-07-27] MEDS: hydrALAzine 20 MG INJ IV PRN ×2 (12:49→16:39)
[2017-07-27 13:21] LABS: PROTEIN/CREAT RATIO 0.08 RATIO
[2017-07-27 14:09] LABS: AADO2 Arterial 103.7 mmHg (7.0-24.0); Allen Test ACCEPTAB; Arterial Base Excess 0.5 mmol/L (-3.0-3); Arterial COHb 0.3 % (0.0-3.0); Arterial Fraction of Oxyhgb 93.9 % (93.0-99.0); Arterial HCO3 23.9 mmol/L (22.0-26.0); Arterial MetHb 0.1 % (0.0-1.5); Arterial Total Hemglobin 11.8 g/dl (12.0-18.0); Blood Gas PS 10; MODE VENT - CPAP
[2017-07-27] MEDS: ATORVASTATIN 40 MG TAB PO SCH (20:08)
[2017-07-27] MEDS: AMLODIPINE 5 MG TAB PO SCH (20:09)
[2017-07-27] MEDS: traMADol 50 MG TAB PO PRN (20:44)
--- NOTE | 2017-07-27 21:27 | CONS ---
Date/Time of Note Date/Time of Note DATE: 07/27/17 TIME: 21:24 Assessment/Plan Assessment/Plan Additional Assessment/Plan Altered mental status Bradycardia with respiratory arrest Hypertension urgency/emergency Severe cardiomyopathy with ejection fraction 25% Acute decompensated systolic congestive heart failure Acute kidney injury History of GI bleed History of alcohol abuse and illicit drug use -Patient currently remains intubated and sedated but does awaken to his name and follow some basic commands. If BP remains elevated, consider hydralazine. No AV di blocking agents given recent bradycardia.Diuretics as per nephro Consultation Date/Type/Reason Admit Date/Time Jul 25, 2017 at 13:20 Initial Consult Date 07/27/17 Type of Consultation: cv Referring Provider: ASHISH SU 24 HR Interval Summary Free Text/Dictation following commands, no cp, sob Exam/Review of Systems Vital Signs Vitals Vital Signs Date Time Temp Pulse Resp B/P Pulse Ox O2 Delivery O2 Flow Rate FiO2 07/27/17 21:00 72 17 146/70 100 Nasal Cannula 3.0 07/27/17 20:00 98.3 07/27/17 11:55 30 Intake and Output 07/26/17 07/26/17 07/27/17 15:00 23:00 07:00 Intake Total 139.259 ml 414.012 ml 513.101 ml Output Total 240 ml 320 ml 238 ml Balance -100.741 ml 94.012 ml 275.101 ml Exam follows commands, nad Constitutional: alert Head: normocephalic ENMT: intubated Respiratory: other (course bs, no wheeze) Cardiovascular: other (s1s2), regular rate and rhythm Gastrointestinal: bowel sounds, non-tender, soft Extremities: edema (tr) Results Result Diagram: 07/27/17 0505 07/27/17 0505 Results 24 hrs Laboratory Tests Test 07/27/17 05:05 07/27/17 07:00 07/27/17 11:05 07/27/17 14:00 White Blood Count 9.0 Red Blood Count 4.21 L Hemoglobin 10.8 L Hematocrit 34.0 L Mean Corpuscular Volume 80.8 L Mean Corpuscular Hemoglobin 25.7 L Mean Corpuscular Hemoglobin Concent 31.8 L Red Cell Distribution Width 26.0 H Platelet Count 202 Mean Platelet Volume 10.5 H Neutrophils % 64.6 Lymphocytes % 17.8 Monocytes % 14.1 H Eosinophils % 2.9 Basophils % 0.3 Nucleated Red Blood Cells % 0.0 Neutrophils # 5.8 Lymphocytes # 1.6 Monocytes # 1.3 H Eosinophils # 0.3 Basophils # 0.0 Nucleated Red Blood Cells # 0.0 Sodium Level 135 Potassium Level 3.7 Chloride Level 102 Carbon Dioxide Level 23 Anion Gap 14 Blood Urea Nitrogen 27 H Creatinine 2.28 H Glucose Level 113 # Calcium Level 8.7 Phosphorus Level 3.9 Magnesium Level 2.3 Total Bilirubin 0.1 L Direct Bilirubin 0.00 Indirect Bilirubin 0.1 Aspartate Amino Transf (AST/SGOT) 23 Alanine Aminotransferase (ALT/SGPT) 27 Alkaline Phosphatase 146 H Total Protein 7.1 Albumin 3.4 Globulin 3.70 H Albumin/Globulin Ratio 0.91 Blood Gas Specimen Source Blood arterial Blood arterial Arterial Blood Date Drawn 07/27/2017 7:20:46 AM 07/27/2017 2:00:30 PM Arterial Blood pH (Temp corrected) 7.414 7.459 H Arterial Blood pCO2 (Temp correct) 33.3 L 34.5 L Arterial Blood pO2 (Temp corrected) 105.8 H 69.7 L Arterial Blood HCO3 20.8 L 23.9 Arterial Blood Base Excess -3.0 0.5 Arterial Blood Oxygen Saturation 97.8 94.3 L Jamir Test ACCEPTAB ACCEPTAB Arterial Blood Gas Puncture Site Right Radial Right Radial Arterial Blood Carboxyhemoglobin 0.4 0.3 Arterial Blood Methemoglobin 0.2 0.1 Blood Gas A-a O2 Differential 69.0 H 103.7 H Oxyhemoglobin Percent 97.2 93.9 Total Hemoglobin 11.8 L 11.8 L Blood Gas Temperature 37.0 37.0 Blood Gas Respiration Rate 18.0 Blood Gas Actual Respiration Rate 18 15 Blood Gas Modality VENT - AC VENT - CPAP FiO2 30.0 30.0 Blood Gas Tidal Volume 500.0 Blood Gas Low PEEP Setting 5.0 5.0 Blood Gas Notified Whom ALEKS FINK Blood Gas Notified Time 07/27/2017 7:45:23 AM 07/27/2017 2:09:03 PM Urine Eosinophils % 0.0 Urine Random Creatinine 225.00 Urine Random Sodium 18 L Urine Protein/Creatinine Ratio 0.08 Urine Total Protein 20.0 H Blood Gas Pressure Support 10 Medications Medications Current Medications Nicardipine HCl (Cardene Iv) 200 ml @ 50 mls/hr TITRATE IV Last administered on 07/25/17 07:29; Admin Dose 50 MLS/HR; Start 07/25/17 at 07:25 Acetaminophen (Tylenol Liquid) 650 mg Q6H PRN PO PAIN LEVEL 1-3 OR FEVER; Start 07/25/17 at 12:00 Famotidine 20 mg 20 mg BID IV Last administered on 07/27/17 20:44; Admin Dose 20 MG; Start 07/26/17 at 09:00 Epinephrine/ Dextrose (EPINEPHrine/D5W) 250 ml @ 0 mls/hr TITRATE IV ; Start at 12:30 Enoxaparin Sodium (Lovenox) 40 mg DAILY SC Last administered on 07/27/17 09: 40; Admin Dose 40 MG; Start 07/25/17 at 13:30 Hydralazine HCl (Apresoline) 10 mg Q4H PRN IV SBP > 160 Last administered on 16:39; Admin Dose 10 MG; Start 07/25/17 at 17:30 Aspirin (Aspirin) 81 mg DAILY GTB Last administered on 07/27/17 09:38; Admin Dose 81 MG; Start 07/25/17 at 18:24 Atorvastatin Calcium (Lipitor) 40 mg HS PO Last administered on 07/27/17 20: 08; Admin Dose 40 MG; Start 07/26/17 at 21:00 Folic Acid (Folic Acid) 1 mg DAILY PO Last administered on 07/27/17 09:39; Admin Dose 1 MG; Start 07/27/17 at 09:00 Isosorbide Dinitrate (Isordil) 10 mg TID PO Last administered on 07/27/17 20: 09; Admin Dose 10 MG; Start 07/26/17 at 13:00 Multivitamins Therapeutic (Theragran) 1 tab DAILY PO Last administered on 07/27 09:38; Admin Dose 1 TAB; Start 07/27/17 at 09:00 Thiamine HCl (Vitamin B1) 100 mg DAILY PO Last administered on 07/27/17 09:38 ; Admin Dose 100 MG; Start 07/27/17 at 09:00 Furosemide (Lasix) 40 mg DAILY IV Last administered on 07/27/17 10:59; Admin Dose 40 MG; Start 07/26/17 at 11:30 Ferrous Sulfate (Feosol Liquid Cup) 300 mg BID NGT Last administered on 20:08; Admin Dose 300 MG; Start 07/27/17 at 09:00 Tramadol HCl (Ultram) 25 mg Q6H PRN PO PAIN Last administered on 07/27/17 20: 44; Admin Dose 25 MG; Start 07/27/17 at 18:00 Amlodipine Besylate (Norvasc) 5 mg BID PO Last administered on 07/27/17 20:09 ; Admin Dose 5 MG; Start 07/27/17 at 21:00 David Martinez DO Jul 27, 2017 21:27
[2017-07-28] VITALS (23 sets, daily range): BP systolic 124–176; BP diastolic 68–109; PULSE 67–97; RESP 15–22
[2017-07-28] MEDS: hydrALAzine 20 MG INJ IV PRN ×3 (04:35→18:01)
[2017-07-28 05:12] LABS: ABNORMAL IP MESSAGE 1; BASOPHILS % 0.4 % (0.0-2.0); EOSINOPHILS # 0.3 10^3/ul (0.0-0.5); EOSINOPHILS % 4.1 % (0.0-7.0); HEMATOCRIT 32.6 % (42.0-52.0); HEMOGLOBIN 10.6 g/dl (14.0-18.0); LYMPHOCYTES # 1.4 10^3/ul (0.8-2.9); LYMPHOCYTES % 19.4 % (15.0-51.0); MEAN CORPUSCULAR HEMOGLOBIN 25.5 pg (29.0-33.0); MEAN CORPUSCULAR HGB CONC 32.5 g/dl (32.0-37.0); MEAN CORPUSCULAR VOLUME 78.6 fl (82.0-101.0); MEAN PLATELET VOLUME 10.4 fl (7.4-10.4); MONOCYTE # 1.1 10^3/ul (0.3-0.9); MONOCYTES % 15.3 % (0.0-11.0); NEUTROPHIL # 4.2 10^3/ul (1.6-7.5); NEUTROPHILS % 60.5 % (39.0-77.0); PLATELET COUNT 208 10^3/UL (140-415); POSITIVE DIFF @See below; RED BLOOD COUNT 4.15 10^6/ul (4.70-6.10); RED CELL DISTRIBUTION WIDTH 25.5 % (11.5-14.5)
[2017-07-28 05:39] LABS: MAGNESIUM 2.1 mg/dl (1.7-2.5); PHOSPHORUS 3.1 mg/dl (2.5-4.9)
[2017-07-28] MEDS: traMADol 50 MG TAB PO PRN ×2 (05:41→18:02)
[2017-07-28 05:53] LABS: ALBUMIN 3.5 g/dl (3.3-4.9); ALBUMIN/GLOBULIN RATIO 0.94; BILIRUBIN,INDIRECT 0.3 mg/dl (0-1.1); BILIRUBIN,TOTAL 0.3 mg/dl (0.2-1.3); CREATININE 1.62 mg/dl (0.61-1.24); POTASSIUM 3.6 mmol/L (3.5-5.1); TOTAL PROTEIN 7.2 g/dl (6.1-8.1); URIC ACID 8.4 mg/dl (3.1-7.9)
--- NOTE | 2017-07-28 07:55 | RADRPT ---
PROCEDURE: XR Chest. CLINICAL INDICATION: Pneumonia, CHF TECHNIQUE: AP Portable chest. COMPARISON: CHEST 07/27/2017; CHEST 07/26/2017; JOANNA CHEST 04/27/2016 FINDINGS: There is interval removal of the ET and NG tubes. The cardiomediastinal silhouette is normal.The aortic arch is calcified. No focal consolidation, ple ural effusion or pneumothorax is seen. The osseous structures are intact. IMPRESSION: Interval removal of the ET and NG tubes. No radiographic evidence of acute cardiopulmonary disease. Physician Cristi Date Time Electronically viewed and signed by Physician Cristi on 07/28/2017 07:55 CS/
[2017-07-28] MEDS: THIAMINE 100 MG TAB PO SCH (08:27)
[2017-07-28] MEDS: ISOSORBIDE DINITRATE 10 MG TAB PO SCH ×3 (08:27→23:23)
[2017-07-28] MEDS: MULTIVITAMINS THERAPEUTIC TAB PO SCH (08:27)
[2017-07-28] MEDS: FERROUS SULFATE 60 MG/ML 5ML CUP NGT SCH ×2 (08:27→21:47)
[2017-07-28] MEDS: FOLIC ACID 1 MG TAB PO SCH (08:27)
[2017-07-28] MEDS: ASPIRIN 81 MG TAB GTB SCH (08:27)
[2017-07-28] MEDS: FUROSEMIDE 40 MG INJ IV SCH (08:27)
[2017-07-28] MEDS: AMLODIPINE 5 MG TAB PO SCH ×2 (08:28→21:48)
[2017-07-28] MEDS: FAMOTIDINE 20 MG INJ IV SCH ×2 (08:32→21:47)
[2017-07-28] MEDS: ENOXAPARIN 40 MG/0.4 ML SYG SC SCH (08:40)
--- NOTE | 2017-07-28 09:35 | CONS ---
Date/Time of Note Date/Time of Note DATE: 07/28/17 TIME: 09:34 Assessment/Plan Assessment/Plan Chief Complaint/Hosp Course 62-year-old -Citizen Of [place] male with a history of cardiomyopathy (ejection fraction of approximately 25% to 30%), congestive heart failure, microcytic anemia, uncontrolled hypertension, current tobacco abuse, current alcohol abuse , and cocaine abuse, as well as gastritis and gastric ulcers on previous endoscopy, who was in his usual state of health at home. The patient did not feel well and per the record started feeling confused and weak. At that time, he summoned 911. The patient was seen by EMS and in transport he became bradycardic into the 30s. The patient arrived in the emergency department and was emergently intubated. His systolic blood pressure was approximately 200 and his heart rate did rebound. He was started on a Cardene drip and emergently intubated as stated above. The patient was placed on propofol and given 60 mg of intravenous Lasix as well as antibiotics and sent to the intensive care unit for further evaluation and treatment. pt had a severe bradycardia but never lost pulse, he required intubation for acute respi failure Renal has been consulted for acute on chronic renal failure and decreased urine output Problems: Additional Assessment/Plan 1. acute kidney injury on CKD due to hemodyanicas from CHF 2. acute CHF exacerbation, acute on chronic 3. Cardiomyopathy wtih low EF 25% 4. acute resp failrue requiring Ventilator care 5. H/o sezure disorder 6> severe bradycardia Plan: Urine output dropping down possible plan for extubation today continue iV lasix for diuresis will give albumin prior to Lasix Urine stuides and renal US has been ordered will continue to follow up on patient Consultation Date/Type/Reason Admit Date/Time Jul 25, 2017 at 13:20 Initial Consult Date 07/27/17 Type of Consultation: NEPHROLOGY Referring Provider: ASHISH US Exam/Review of Systems Vital Signs Vitals Vital Signs Date Time Temp Pulse Resp B/P Pulse Ox O2 Delivery O2 Flow Rate FiO2 07/28/17 08:00 Nasal Cannula 3.0 07/28/17 07:00 98.1 69 15 167/86 100 69 07/27/17 11:55 30 Intake and Output 07/27/17 07/27/17 07/28/17 15:00 23:00 07:00 Intake Total 285.668 ml 0 ml Output Total 945 ml 430 ml 270 ml Balance -659.332 ml -430 ml -270 ml Results Result Diagram: 07/28/17 0437 07/28/17 0437 Results 24 hrs Laboratory Tests Test 07/27/17 11:05 07/27/17 14:00 07/28/17 04:37 Urine Eosinophils % 0.0 Urine Random Creatinine 225.00 Urine Random Sodium 18 L Urine Protein/Creatinine Ratio 0.08 Urine Total Protein 20.0 H Blood Gas Specimen Source Blood arterial Arterial Blood Date Drawn 07/27/2017 2:00:30 PM Arterial Blood pH (Temp corrected) 7.459 H Arterial Blood pCO2 (Temp correct) 34.5 L Arterial Blood pO2 (Temp corrected) 69.7 L Arterial Blood HCO3 23.9 Arterial Blood Base Excess 0.5 Arterial Blood Oxygen Saturation 94.3 L Jamir Test ACCEPTAB Arterial Blood Gas Puncture Site Right Radial Arterial Blood Carboxyhemoglobin 0.3 Arterial Blood Methemoglobin 0.1 Blood Gas A-a O2 Differential 103.7 H Oxyhemoglobin Percent 93.9 Total Hemoglobin 11.8 L Blood Gas Temperature 37.0 Blood Gas Actual Respiration Rate 15 Blood Gas Modality VENT - CPAP FiO2 30.0 Blood Gas Low PEEP Setting 5.0 Blood Gas Pressure Support 10 Blood Gas Notified Whom JLD Blood Gas Notified Time 07/27/2017 2:09:03 PM White Blood Count 7.0 # Red Blood Count 4.15 L Hemoglobin 10.6 L Hematocrit 32.6 L Mean Corpuscular Volume 78.6 L Mean Corpuscular Hemoglobin 25.5 L Mean Corpuscular Hemoglobin Concent 32.5 Red Cell Distribution Width 25.5 H Platelet Count 208 Mean Platelet Volume 10.4 Neutrophils % 60.5 Lymphocytes % 19.4 Monocytes % 15.3 H Eosinophils % 4.1 Basophils % 0.4 Nucleated Red Blood Cells % 0.0 Neutrophils # 4.2 Lymphocytes # 1.4 Monocytes # 1.1 H Eosinophils # 0.3 Basophils # 0.0 Nucleated Red Blood Cells # 0.0 Sodium Level 140 Potassium Level 3.6 Chloride Level 106 Carbon Dioxide Level 25 Anion Gap 13 Blood Urea Nitrogen 20 Creatinine 1.62 H Glucose Level 103 Uric Acid 8.4 H Calcium Level 9.0 Phosphorus Level 3.1 Magnesium Level 2.1 Total Bilirubin 0.3 Direct Bilirubin 0.00 Indirect Bilirubin 0.3 Aspartate Amino Transf (AST/SGOT) 20 Alanine Aminotransferase (ALT/SGPT) 27 Alkaline Phosphatase 117 Creatine Kinase 35 Total Protein 7.2 Albumin 3.5 Globulin 3.70 H Albumin/Globulin Ratio 0.94 Medications Medications Current Medications Nicardipine HCl (Cardene Iv) 200 ml @ 50 mls/hr TITRATE IV Last administered on 07/25/17 07:29; Admin Dose 50 MLS/HR; Start 07/25/17 at 07:25 Acetaminophen (Tylenol Liquid) 650 mg Q6H PRN PO PAIN LEVEL 1-3 OR FEVER; Start 07/25/17 at 12:00 Famotidine 20 mg 20 mg BID IV Last administered on 07/28/17 08:32; Admin Dose 20 MG; Start 07/26/17 at 09:00 Epinephrine/ Dextrose (EPINEPHrine/D5W) 250 ml @ 0 mls/hr TITRATE IV ; Start at 12:30 Enoxaparin Sodium (Lovenox) 40 mg DAILY SC Last administered on 07/28/17 08: 40; Admin Dose 40 MG; Start 07/25/17 at 13:30 Hydralazine HCl (Apresoline) 10 mg Q4H PRN IV SBP > 160 Last administered on 04:35; Admin Dose 10 MG; Start 07/25/17 at 17:30 Aspirin (Aspirin) 81 mg DAILY GTB Last administered on 07/28/17 08:27; Admin Dose 81 MG; Start 07/25/17 at 18:24 Atorvastatin Calcium (Lipitor) 40 mg HS PO Last administered on 07/27/17 20: 08; Admin Dose 40 MG; Start 07/26/17 at 21:00 Folic Acid (Folic Acid) 1 mg DAILY PO Last administered on 07/28/17 08:27; Admin Dose 1 MG; Start 07/27/17 at 09:00 Isosorbide Dinitrate (Isordil) 10 mg TID PO Last administered on 07/28/17 08: 27; Admin Dose 10 MG; Start 07/26/17 at 13:00 Multivitamins Therapeutic (Theragran) 1 tab DAILY PO Last administered on 07/28 08:27; Admin Dose 1 TAB; Start 07/27/17 at 09:00 Thiamine HCl (Vitamin B1) 100 mg DAILY PO Last administered on 07/28/17 08:27 ; Admin Dose 100 MG; Start 07/27/17 at 09:00 Furosemide (Lasix) 40 mg DAILY IV Last administered on 07/28/17 08:27; Admin Dose 40 MG; Start 07/26/17 at 11:30 Ferrous Sulfate (Feosol Liquid Cup) 300 mg BID NGT Last administered on 08:27; Admin Dose 300 MG; Start 07/27/17 at 09:00 Tramadol HCl (Ultram) 25 mg Q6H PRN PO PAIN Last administered on 07/28/17 05: 41; Admin Dose 25 MG; Start 07/27/17 at 18:00 Amlodipine Besylate (Norvasc) 5 mg BID PO Last administered on 07/28/17 08:28 ; Admin Dose 5 MG; Start 07/27/17 at 21:00 JAMILA GARCÍA MD Jul 28, 2017 09:35
--- NOTE | 2017-07-28 09:56 | CONS ---
Date/Time of Note Date/Time of Note DATE: 07/28/17 TIME: 09:52 Assessment/Plan Assessment/Plan Additional Assessment/Plan 1. acute kidney injury on CKD due to hemodyanicas from CHF 2. acute CHF exacerbation, acute on chronic 3. Cardiomyopathy wtih low EF 25% 4. acute resp failrue requiring Ventilator care 5. H/o sezure disorder 6> severe bradycardia Plan: s/p extubation yesteday, stable, on Lasix 40mg IV daily, making good urine output d/c current dose of lasix, start lasix 20mg IV BID Urine stuides and renal US has been unremarkable, Kidney size and echogenicity c /w CKD will continue to follow up on patient Consultation Date/Type/Reason Admit Date/Time Jul 25, 2017 at 13:20 Initial Consult Date 07/27/17 Type of Consultation: NEPHROLOGY Referring Provider: ASHISH US Exam/Review of Systems Vital Signs Vitals Vital Signs Date Time Temp Pulse Resp B/P Pulse Ox O2 Delivery O2 Flow Rate FiO2 07/28/17 08:00 Nasal Cannula 3.0 07/28/17 07:00 98.1 69 15 167/86 100 69 07/27/17 11:55 30 Intake and Output 07/27/17 07/27/17 07/28/17 14:59 22:59 06:59 Intake Total 348.670 ml 0 ml Output Total 873 ml 480 ml 320 ml Balance -524.330 ml -480 ml -320 ml Exam Constitutional: alert, oriented, other (extubated ) Head: normocephalic Neck: non-tender, supple Respiratory: crackles/rales, diminished breath sounds Cardiovascular: regular rate and rhythm Gastrointestinal: non-tender, soft Genitourinary - Male: other (+ mohan catheter ) Musculoskeletal: nl extremities to inspection Neurological: other (aler, awake, follows commands ) Results Result Diagram: 07/28/17 0437 07/28/17 0437 Results 24 hrs Laboratory Tests Test 07/27/17 11:05 07/27/17 14:00 07/28/17 04:37 Urine Eosinophils % 0.0 Urine Random Creatinine 225.00 Urine Random Sodium 18 L Urine Protein/Creatinine Ratio 0.08 Urine Total Protein 20.0 H Blood Gas Specimen Source Blood arterial Arterial Blood Date Drawn 07/27/2017 2:00:30 PM Arterial Blood pH (Temp corrected) 7.459 H Arterial Blood pCO2 (Temp correct) 34.5 L Arterial Blood pO2 (Temp corrected) 69.7 L Arterial Blood HCO3 23.9 Arterial Blood Base Excess 0.5 Arterial Blood Oxygen Saturation 94.3 L Jamir Test ACCEPTAB Arterial Blood Gas Puncture Site Right Radial Arterial Blood Carboxyhemoglobin 0.3 Arterial Blood Methemoglobin 0.1 Blood Gas A-a O2 Differential 103.7 H Oxyhemoglobin Percent 93.9 Total Hemoglobin 11.8 L Blood Gas Temperature 37.0 Blood Gas Actual Respiration Rate 15 Blood Gas Modality VENT - CPAP FiO2 30.0 Blood Gas Low PEEP Setting 5.0 Blood Gas Pressure Support 10 Blood Gas Notified Whom JLD Blood Gas Notified Time 07/27/2017 2:09:03 PM White Blood Count 7.0 # Red Blood Count 4.15 L Hemoglobin 10.6 L Hematocrit 32.6 L Mean Corpuscular Volume 78.6 L Mean Corpuscular Hemoglobin 25.5 L Mean Corpuscular Hemoglobin Concent 32.5 Red Cell Distribution Width 25.5 H Platelet Count 208 Mean Platelet Volume 10.4 Neutrophils % 60.5 Lymphocytes % 19.4 Monocytes % 15.3 H Eosinophils % 4.1 Basophils % 0.4 Nucleated Red Blood Cells % 0.0 Neutrophils # 4.2 Lymphocytes # 1.4 Monocytes # 1.1 H Eosinophils # 0.3 Basophils # 0.0 Nucleated Red Blood Cells # 0.0 Sodium Level 140 Potassium Level 3.6 Chloride Level 106 Carbon Dioxide Level 25 Anion Gap 13 Blood Urea Nitrogen 20 Creatinine 1.62 H Glucose Level 103 Uric Acid 8.4 H Calcium Level 9.0 Phosphorus Level 3.1 Magnesium Level 2.1 Total Bilirubin 0.3 Direct Bilirubin 0.00 Indirect Bilirubin 0.3 Aspartate Amino Transf (AST/SGOT) 20 Alanine Aminotransferase (ALT/SGPT) 27 Alkaline Phosphatase 117 Creatine Kinase 35 Total Protein 7.2 Albumin 3.5 Globulin 3.70 H Albumin/Globulin Ratio 0.94 Medications Medications Current Medications Nicardipine HCl (Cardene Iv) 200 ml @ 50 mls/hr TITRATE IV Last administered on 07/25/17t 07:29; Admin Dose 50 MLS/HR; Start 07/25/17 at 07:25 Acetaminophen (Tylenol Liquid) 650 mg Q6H PRN PO PAIN LEVEL 1-3 OR FEVER; Start 07/25/17 at 12:00 Famotidine 20 mg 20 mg BID IV Last administered on 07/28/17 08:32; Admin Dose 20 MG; Start 07/26/17 at 09:00 Epinephrine/ Dextrose (EPINEPHrine/D5W) 250 ml @ 0 mls/hr TITRATE IV ; Start at 12:30 Enoxaparin Sodium (Lovenox) 40 mg DAILY SC Last administered on 07/28/17 08: 40; Admin Dose 40 MG; Start 07/25/17 at 13:30 Hydralazine HCl (Apresoline) 10 mg Q4H PRN IV SBP > 160 Last administered on 09:34; Admin Dose 10 MG; Start 07/25/17 at 17:30 Aspirin (Aspirin) 81 mg DAILY GTB Last administered on 07/28/17 08:27; Admin Dose 81 MG; Start 07/25/17 at 18:24 Atorvastatin Calcium (Lipitor) 40 mg HS PO Last administered on 07/27/17 20: 08; Admin Dose 40 MG; Start 07/26/17 at 21:00 Folic Acid (Folic Acid) 1 mg DAILY PO Last administered on 07/28/17 08:27; Admin Dose 1 MG; Start 07/27/17 at 09:00 Isosorbide Dinitrate (Isordil) 10 mg TID PO Last administered on 07/28/17 08: 27; Admin Dose 10 MG; Start 07/26/17 at 13:00 Multivitamins Therapeutic (Theragran) 1 tab DAILY PO Last administered on 07/28 08:27; Admin Dose 1 TAB; Start 07/27/17 at 09:00 Thiamine HCl (Vitamin B1) 100 mg DAILY PO Last administered on 07/28/17 08:27 ; Admin Dose 100 MG; Start 07/27/17 at 09:00 Furosemide (Lasix) 40 mg DAILY IV Last administered on 07/28/17 08:27; Admin Dose 40 MG; Start 07/26/17 at 11:30 Ferrous Sulfate (Feosol Liquid Cup) 300 mg BID NGT Last administered on 08:27; Admin Dose 300 MG; Start 07/27/17 at 09:00 Tramadol HCl (Ultram) 25 mg Q6H PRN PO PAIN Last administered on 07/28/17 05: 41; Admin Dose 25 MG; Start 07/27/17 at 18:00 Amlodipine Besylate (Norvasc) 5 mg BID PO Last administered on 07/28/17 08:28 ; Admin Dose 5 MG; Start 07/27/17 at 21:00 JAMILA GARCÍA MD Jul 28, 2017 09:56
--- NOTE | 2017-07-28 10:33 | PN ---
Date/Time of Note Date/Time of Note DATE: 07/28/17 TIME: 10:27 Assessment/Plan VTE Prophylaxis VTE Prophylaxis Intervention: SCD's Lines/Catheters IV [facility]ter [facility]from [facility] Saline Lock Urinary Cath still in place: Yes Reason Cath still needed: other (indicate) (For another 24 hours, strict I's and O's.) Assessment/Plan Assessment/Plan 62-year-old male with: 1. Episode of severe bradycardia: Now per report patient has never lost his pulse. Patient with acute respiratory failure and bradycardia, etiology is likely primary respiratory. Currently sinus rhythm, stable from cardiac standpoint so far. It became apparent that the patient may have been enrolled in the clinical trial for medication for patients with congestive heart failure, it is unclear if he actually took it as the papers seems to have been signed on 07/23. Serial troponin negative x 3. Repeat 2D echocardiogram with ejection fraction unchanged at 25% Appreciate recommendations from cardiology, Dr. Martinez. 2. S/p Acute respiratory failure: It is unclear if the patient went into respiratory failure first or had a cardiac event first. He seems to be likely that the patient went into CHF exacerbation and respiratory failure first probably. Patient extubated yesterday, on room air today. Euvolemic on chest x -ray 2 days. Continue diuresis, nephrology has been assisting. 3. Severe cardiomyopathy, previous ejection fraction around 25%, patient was discharged on multiple medications for medical management. Unclear if his been compliant. According to his sister, patient has followed up with cardiology last week, according to the girlfriend, patient actually consumes raw salt which would be a major dietary indiscretion in his case. Aldactone has been discontinued, patient to receive albumin along with Lasix today for diuresis. Chest x-ray much improved x 2 days and patient overall volume status much improved, seems to be euvolemic today. 4. Acute kidney injury on chronic kidney disease, status post respiratory failure and cardiac arrest. Nephrology consult today with Dr. Bermeo. Renal function improved, will plan to DC Rodriguez catheter in the next 24 hours Strict I's and O's, diuresis with Lasix and dosing per Dr. Bermeo. 5. Hypertensive emergency, patient's blood pressure much better controlled, off Cardene drip since admission to ICU. Back on Isosorbide, given the bradycardic episode on admission, started on Norvasc, heart rate stable, will discuss with cardiology if to resume carvedilol. Follow-up cardiology commendations. 6. Loose stools, resolved, C. difficile negative. 7. History of seizure disorder, patient has been off medications. No seizures. According to the sister last grand mal seizures was 2 years ago, patient was also consuming alcohol back then so unclear if it was primary epilepsy versus withdrawal. 8. History of alcohol abuse: On his last admission, patient voiced that he had quit. 9. History of tobacco abuse: Patient has been counseled to quit tobacco hopefully he has quit. If not nicotine patch will be needed. 10. Right knee pain, status post fall/syncope with episode of acute respiratory failure while at home, x-ray right knee, pain control, physical therapy Prophylaxis: Lovenox for DVT prophylaxis and Protonix for gastrointestinal prophylaxis. Disposition: Follow-up cardiology and nephrology recommendations. Continue diuresis and monitor renal function. Follow-up right knee x-ray results. Subjective 24 Hr Interval Summary Free Text/Dictation Patient doing very well this morning, currently on room air, chest x-ray with resolved pulmonary edema, no lower extremity edema noted. However patient now extubated and verbal, he reports a severe right knee pain which most likely trauma from his syncopal episode at home. Will check x-rays. Transfer to telemetry. Exam/Review of Systems Vital Signs Vitals Vital Signs Date Time Temp Pulse Resp B/P Pulse Ox O2 Delivery O2 Flow Rate FiO2 07/28/17 08:00 Nasal Cannula 3.0 07/28/17 07:00 98.1 69 15 167/86 100 69 07/27/17 11:55 30 Intake and Output 07/27/17 07/27/17 07/28/17 15:00 23:00 07:00 Intake Total 285.668 ml 0 ml Output Total 945 ml 430 ml 270 ml Balance -659.332 ml -430 ml -270 ml Exam Constitutional: alert, oriented, well developed Respiratory: clear to auscultation, normal air movement Cardiovascular: nl pulses, regular rate and rhythm Musculoskeletal: swelling (Right knee) Extremities: normal pulses, other (No edema, clubbing or cyanosis) 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, nl mental status, nl speech, nl strength Results Result Diagram: 07/28/17 0437 07/28/17 0437 Results 24 hrs Laboratory Tests Test 07/27/17 11:05 07/27/17 14:00 07/28/17 04:37 Urine Eosinophils % 0.0 Urine Random Creatinine 225.00 Urine Random Sodium 18 L Urine Protein/Creatinine Ratio 0.08 Urine Total Protein 20.0 H Blood Gas Specimen Source Blood arterial Arterial Blood Date Drawn 07/27/2017 2:00:30 PM Arterial Blood pH (Temp corrected) 7.459 H Arterial Blood pCO2 (Temp correct) 34.5 L Arterial Blood pO2 (Temp corrected) 69.7 L Arterial Blood HCO3 23.9 Arterial Blood Base Excess 0.5 Arterial Blood Oxygen Saturation 94.3 L Jamir Test ACCEPTAB Arterial Blood Gas Puncture Site Right Radial Arterial Blood Carboxyhemoglobin 0.3 Arterial Blood Methemoglobin 0.1 Blood Gas A-a O2 Differential 103.7 H Oxyhemoglobin Percent 93.9 Total Hemoglobin 11.8 L Blood Gas Temperature 37.0 Blood Gas Actual Respiration Rate 15 Blood Gas Modality VENT - CPAP FiO2 30.0 Blood Gas Low PEEP Setting 5.0 Blood Gas Pressure Support 10 Blood Gas Notified Whom JLD Blood Gas Notified Time 07/27/2017 2:09:03 PM White Blood Count 7.0 # Red Blood Count 4.15 L Hemoglobin 10.6 L Hematocrit 32.6 L Mean Corpuscular Volume 78.6 L Mean Corpuscular Hemoglobin 25.5 L Mean Corpuscular Hemoglobin Concent 32.5 Red Cell Distribution Width 25.5 H Platelet Count 208 Mean Platelet Volume 10.4 Neutrophils % 60.5 Lymphocytes % 19.4 Monocytes % 15.3 H Eosinophils % 4.1 Basophils % 0.4 Nucleated Red Blood Cells % 0.0 Neutrophils # 4.2 Lymphocytes # 1.4 Monocytes # 1.1 H Eosinophils # 0.3 Basophils # 0.0 Nucleated Red Blood Cells # 0.0 Sodium Level 140 Potassium Level 3.6 Chloride Level 106 Carbon Dioxide Level 25 Anion Gap 13 Blood Urea Nitrogen 20 Creatinine 1.62 H Glucose Level 103 Uric Acid 8.4 H Calcium Level 9.0 Phosphorus Level 3.1 Magnesium Level 2.1 Total Bilirubin 0.3 Direct Bilirubin 0.00 Indirect Bilirubin 0.3 Aspartate Amino Transf (AST/SGOT) 20 Alanine Aminotransferase (ALT/SGPT) 27 Alkaline Phosphatase 117 Creatine Kinase 35 Total Protein 7.2 Albumin 3.5 Globulin 3.70 H Albumin/Globulin Ratio 0.94 Imaging Free Text/Dictation PROCEDURE: XR Chest. CLINICAL INDICATION: Pneumonia, CHF TECHNIQUE: AP Portable chest. COMPARISON: CHEST 07/27/2017; CHEST 07/26/2017; JOANNA CHEST 04/27/2016 FINDINGS: There is interval removal of the ET and NG tubes. The cardiomediastinal silhouette is normal.The aortic arch is calcified. No focal consolidation, pleural effusion or pneumothorax is seen. The osseous structures are intact. IMPRESSION: Interval removal of the ET and NG tubes. No radiographic evidence of acute cardiopulmonary disease. Sindi Ramos Physician Date Time Electronically viewed and signed by Sindi Ramos Physician on 07/28/2017 07: 55 Medications Medications Current Medications Nicardipine HCl (Cardene Iv) 200 ml @ 50 mls/hr TITRATE IV Last administered on 07/25/17 07:29; Admin Dose 50 MLS/HR; Start 07/25/17 at 07:25 Acetaminophen (Tylenol Liquid) 650 mg Q6H PRN PO PAIN LEVEL 1-3 OR FEVER; Start 07/25/17 at 12:00 Famotidine 20 mg 20 mg BID IV Last administered on 07/28/17 08:32; Admin Dose 20 MG; Start 07/26/17 at 09:00 Epinephrine/ Dextrose (EPINEPHrine/D5W) 250 ml @ 0 mls/hr TITRATE IV ; Start at 12:30 Enoxaparin Sodium (Lovenox) 40 mg DAILY SC Last administered on 07/28/17 08: 40; Admin Dose 40 MG; Start 07/25/17 at 13:30 Hydralazine HCl (Apresoline) 10 mg Q4H PRN IV SBP > 160 Last administered on 09:34; Admin Dose 10 MG; Start 07/25/17 at 17:30 Aspirin (Aspirin) 81 mg DAILY GTB Last administered on 07/28/17 08:27; Admin Dose 81 MG; Start 07/25/17 at 18:24 Atorvastatin Calcium (Lipitor) 40 mg HS PO Last administered on 07/27/17 20: 08; Admin Dose 40 MG; Start 07/26/17 at 21:00 Folic Acid (Folic Acid) 1 mg DAILY PO Last administered on 07/28/17 08:27; Admin Dose 1 MG; Start 07/27/17 at 09:00 Isosorbide Dinitrate (Isordil) 10 mg TID PO Last administered on 07/28/17 08: 27; Admin Dose 10 MG; Start 07/26/17 at 13:00 Multivitamins Therapeutic (Theragran) 1 tab DAILY PO Last administered on 07/28 08:27; Admin Dose 1 TAB; Start 07/27/17 at 09:00 Thiamine HCl (Vitamin B1) 100 mg DAILY PO Last administered on 07/28/17 08:27 ; Admin Dose 100 MG; Start 07/27/17 at 09:00 Ferrous Sulfate (Feosol Liquid Cup) 300 mg BID NGT Last administered on 08:27; Admin Dose 300 MG; Start 07/27/17 at 09:00 Tramadol HCl (Ultram) 25 mg Q6H PRN PO PAIN Last administered on 07/28/17 05: 41; Admin Dose 25 MG; Start 07/27/17 at 18:00 Amlodipine Besylate (Norvasc) 5 mg BID PO Last administered on 07/28/17 08:28 ; Admin Dose 5 MG; Start 07/27/17 at 21:00 ASHISH US Jul 28, 2017 10:33
--- NOTE | 2017-07-28 11:23 | CONS ---
Date/Time of Note Date/Time of Note DATE: 07/28/17 TIME: 11:21 Consult Date/Type/Reason Admit Date/Time Jul 25, 2017 at 13:20 Type of Consultation: Pulmonary Ordering Provider: ASHISH US Subjective Patient stable following extubation. Denies shortness of breath or chest pain. No nausea vomiting. Objective Vital Signs Date Time Temp Pulse Resp B/P Pulse Ox O2 Delivery O2 Flow Rate FiO2 07/28/17 10:30 77 16 129/69 95 07/28/17 10:00 98.5 Nasal Cannula 3.0 07/27/17 11:55 30 Intake and Output 07/27/17 07/27/17 07/28/17 14:59 22:59 06:59 Intake Total 348.670 ml 0 ml Output Total 873 ml 480 ml 320 ml Balance -524.330 ml -480 ml -320 ml Exam PHYSICAL EXAMINATION: GENERAL: An elderly-appearing gentleman, intubated on mechanical ventilation, appears comfortable at rest, no acute distress. VITAL SIGNS: As above HEENT pupils, equal and reactive to light. CARDIAC: S1, S2, no added sounds or murmurs. CHEST: Diminished air entry bilaterally. ABDOMEN: Soft, nontender. No guarding or rebound. EXTREMITIES: No cyanosis, clubbing, 1+ edema. NEUROLOGIC: Generalized weakness. Results/Medications Result Diagram: 07/28/17 0437 07/28/17 0437 Results 24 hrs Laboratory Tests Test 07/27/17 14:00 07/28/17 04:37 Blood Gas Specimen Source Blood arterial Arterial Blood Date Drawn 07/27/2017 2:00:30 PM Arterial Blood pH (Temp corrected) 7.459 H Arterial Blood pCO2 (Temp correct) 34.5 L Arterial Blood pO2 (Temp corrected) 69.7 L Arterial Blood HCO3 23.9 Arterial Blood Base Excess 0.5 Arterial Blood Oxygen Saturation 94.3 L Jamir Test ACCEPTAB Arterial Blood Gas Puncture Site Right Radial Arterial Blood Carboxyhemoglobin 0.3 Arterial Blood Methemoglobin 0.1 Blood Gas A-a O2 Differential 103.7 H Oxyhemoglobin Percent 93.9 Total Hemoglobin 11.8 L Blood Gas Temperature 37.0 Blood Gas Actual Respiration Rate 15 Blood Gas Modality VENT - CPAP FiO2 30.0 Blood Gas Low PEEP Setting 5.0 Blood Gas Pressure Support 10 Blood Gas Notified Whom JLD Blood Gas Notified Time 07/27/2017 2:09:03 PM White Blood Count 7.0 # Red Blood Count 4.15 L Hemoglobin 10.6 L Hematocrit 32.6 L Mean Corpuscular Volume 78.6 L Mean Corpuscular Hemoglobin 25.5 L Mean Corpuscular Hemoglobin Concent 32.5 Red Cell Distribution Width 25.5 H Platelet Count 208 Mean Platelet Volume 10.4 Neutrophils % 60.5 Lymphocytes % 19.4 Monocytes % 15.3 H Eosinophils % 4.1 Basophils % 0.4 Nucleated Red Blood Cells % 0.0 Neutrophils # 4.2 Lymphocytes # 1.4 Monocytes # 1.1 H Eosinophils # 0.3 Basophils # 0.0 Nucleated Red Blood Cells # 0.0 Sodium Level 140 Potassium Level 3.6 Chloride Level 106 Carbon Dioxide Level 25 Anion Gap 13 Blood Urea Nitrogen 20 Creatinine 1.62 H Glucose Level 103 Uric Acid 8.4 H Calcium Level 9.0 Phosphorus Level 3.1 Magnesium Level 2.1 Total Bilirubin 0.3 Direct Bilirubin 0.00 Indirect Bilirubin 0.3 Aspartate Amino Transf (AST/SGOT) 20 Alanine Aminotransferase (ALT/SGPT) 27 Alkaline Phosphatase 117 Creatine Kinase 35 Total Protein 7.2 Albumin 3.5 Globulin 3.70 H Albumin/Globulin Ratio 0.94 Medications Current Medications Acetaminophen (Tylenol Liquid) 650 mg Q6H PRN PO PAIN LEVEL 1-3 OR FEVER; Start 07/25/17 at 12:00 Famotidine (Pepcid Iv) 20 mg BID IV Last administered on 07/28/17 08:32; Admin Dose 20 MG; Start 07/26/17 at 09:00 Enoxaparin Sodium (Lovenox) 40 mg DAILY SC Last administered on 07/28/17 08: 40; Admin Dose 40 MG; Start 07/25/17 at 13:30 Hydralazine HCl (Apresoline) 10 mg Q4H PRN IV SBP > 160 Last administered on 09:34; Admin Dose 10 MG; Start 07/25/17 at 17:30 Aspirin (Aspirin) 81 mg DAILY GTB Last administered on 07/28/17 08:27; Admin Dose 81 MG; Start 07/25/17 at 18:24 Atorvastatin Calcium (Lipitor) 40 mg HS PO Last administered on 07/27/17 20: 08; Admin Dose 40 MG; Start 07/26/17 at 21:00 Folic Acid (Folic Acid) 1 mg DAILY PO Last administered on 07/28/17 08:27; Admin Dose 1 MG; Start 07/27/17 at 09:00 Isosorbide Dinitrate (Isordil) 10 mg TID PO Last administered on 07/28/17 08: 27; Admin Dose 10 MG; Start 07/26/17 at 13:00 Multivitamins Therapeutic (Theragran) 1 tab DAILY PO Last administered on 07/28 08:27; Admin Dose 1 TAB; Start 07/27/17 at 09:00 Thiamine HCl (Vitamin B1) 100 mg DAILY PO Last administered on 07/28/17 08:27 ; Admin Dose 100 MG; Start 07/27/17 at 09:00 Ferrous Sulfate (Feosol Liquid Cup) 300 mg BID NGT Last administered on 08:27; Admin Dose 300 MG; Start 07/27/17 at 09:00 Tramadol HCl (Ultram) 25 mg Q6H PRN PO PAIN Last administered on 07/28/17 05: 41; Admin Dose 25 MG; Start 07/27/17 at 18:00 Amlodipine Besylate (Norvasc) 5 mg BID PO Last administered on 07/28/17 08:28 ; Admin Dose 5 MG; Start 07/27/17 at 21:00 Assessment/Plan Chief Complaint/Hosp Course IMPRESSION 1. Status post hypertensive urgency. 2. Acute congestive cardiac failure. 3. Hypoxemic respiratory failure, likely secondary to above. Chest x-ray is clear now. Safely extubated. 4. History of essential hypertension. PLAN: 1. Incentive spirometry as needed 2. Continue current recommendations for blood pressure management 3. Advance diet as tolerated 4. Physical therapy evaluation encourage out of bed 5. Deep venous thrombosis and GI prophylaxis. Transfer to telemetry okay from pulmonary standpoint Problems: ANDERSON HILL MD, [facility] Jul 28, 2017 11:23
--- NOTE | 2017-07-28 11:40 | CONS ---
Date/Time of Note Date/Time of Note DATE: 07/28/17 TIME: 11:39 Assessment/Plan Assessment/Plan Additional Assessment/Plan Respiratory failure status post extubation Bradycardia, resolved Hypertension urgency/emergency Severe cardiomyopathy with ejection fraction 25% Acute decompensated systolic congestive heart failure Acute kidney injury History of GI bleed History of alcohol abuse and illicit drug use -Discussion with primary team, appears patient was in respiratory distress and this led to bradycardia. Patient currently extubated, telemetry with no significant bradycardia seen. Blood pressure medications have been restarted, diuretics as per our nephrology colleagues Consultation Date/Type/Reason Admit Date/Time Jul 25, 2017 at 13:20 Initial Consult Date 07/27/17 Type of Consultation: cv Referring Provider: ASHISH US 24 HR Interval Summary Free Text/Dictation Patient extubated, feeling better, denies shortness of breath Exam/Review of Systems Vital Signs Vitals Vital Signs Date Time Temp Pulse Resp B/P Pulse Ox O2 Delivery O2 Flow Rate FiO2 07/28/17 10:30 77 16 129/69 95 07/28/17 10:00 98.5 Nasal Cannula 3.0 07/27/17 11:55 30 Intake and Output 07/27/17 07/27/17 07/28/17 15:00 23:00 07:00 Intake Total 285.668 ml 0 ml Output Total 945 ml 430 ml 320 ml Balance -659.332 ml -430 ml -320 ml Exam No apparent distress Constitutional: alert, oriented Head: normocephalic Respiratory: other (Coarse breath sounds bilaterally, no wheezing) Cardiovascular: other (S1-S2 heard), regular rate and rhythm Gastrointestinal: bowel sounds, non-tender, soft Extremities: edema Results Result Diagram: 07/28/17 0437 07/28/17 0437 Results 24 hrs Laboratory Tests Test 07/27/17 14:00 07/28/17 04:37 Blood Gas Specimen Source Blood arterial Arterial Blood Date Drawn 07/27/2017 2:00:30 PM Arterial Blood pH (Temp corrected) 7.459 H Arterial Blood pCO2 (Temp correct) 34.5 L Arterial Blood pO2 (Temp corrected) 69.7 L Arterial Blood HCO3 23.9 Arterial Blood Base Excess 0.5 Arterial Blood Oxygen Saturation 94.3 L Jamir Test ACCEPTAB Arterial Blood Gas Puncture Site Right Radial Arterial Blood Carboxyhemoglobin 0.3 Arterial Blood Methemoglobin 0.1 Blood Gas A-a O2 Differential 103.7 H Oxyhemoglobin Percent 93.9 Total Hemoglobin 11.8 L Blood Gas Temperature 37.0 Blood Gas Actual Respiration Rate 15 Blood Gas Modality VENT - CPAP FiO2 30.0 Blood Gas Low PEEP Setting 5.0 Blood Gas Pressure Support 10 Blood Gas Notified Whom JLD Blood Gas Notified Time 07/27/2017 2:09:03 PM White Blood Count 7.0 # Red Blood Count 4.15 L Hemoglobin 10.6 L Hematocrit 32.6 L Mean Corpuscular Volume 78.6 L Mean Corpuscular Hemoglobin 25.5 L Mean Corpuscular Hemoglobin Concent 32.5 Red Cell Distribution Width 25.5 H Platelet Count 208 Mean Platelet Volume 10.4 Neutrophils % 60.5 Lymphocytes % 19.4 Monocytes % 15.3 H Eosinophils % 4.1 Basophils % 0.4 Nucleated Red Blood Cells % 0.0 Neutrophils # 4.2 Lymphocytes # 1.4 Monocytes # 1.1 H Eosinophils # 0.3 Basophils # 0.0 Nucleated Red Blood Cells # 0.0 Sodium Level 140 Potassium Level 3.6 Chloride Level 106 Carbon Dioxide Level 25 Anion Gap 13 Blood Urea Nitrogen 20 Creatinine 1.62 H Glucose Level 103 Uric Acid 8.4 H Calcium Level 9.0 Phosphorus Level 3.1 Magnesium Level 2.1 Total Bilirubin 0.3 Direct Bilirubin 0.00 Indirect Bilirubin 0.3 Aspartate Amino Transf (AST/SGOT) 20 Alanine Aminotransferase (ALT/SGPT) 27 Alkaline Phosphatase 117 Creatine Kinase 35 Total Protein 7.2 Albumin 3.5 Globulin 3.70 H Albumin/Globulin Ratio 0.94 Medications Medications Current Medications Acetaminophen (Tylenol Liquid) 650 mg Q6H PRN PO PAIN LEVEL 1-3 OR FEVER; Start 07/25/17 at 12:00 Famotidine (Pepcid Iv) 20 mg BID IV Last administered on 07/28/17 08:32; Admin Dose 20 MG; Start 07/26/17 at 09:00 Enoxaparin Sodium (Lovenox) 40 mg DAILY SC Last administered on 07/28/17 08: 40; Admin Dose 40 MG; Start 07/25/17 at 13:30 Hydralazine HCl (Apresoline) 10 mg Q4H PRN IV SBP > 160 Last administered on 09:34; Admin Dose 10 MG; Start 07/25/17 at 17:30 Aspirin (Aspirin) 81 mg DAILY GTB Last administered on 07/28/17 08:27; Admin Dose 81 MG; Start 07/25/17 at 18:24 Atorvastatin Calcium (Lipitor) 40 mg HS PO Last administered on 07/27/17 20: 08; Admin Dose 40 MG; Start 07/26/17 at 21:00 Folic Acid (Folic Acid) 1 mg DAILY PO Last administered on 07/28/17 08:27; Admin Dose 1 MG; Start 07/27/17 at 09:00 Isosorbide Dinitrate (Isordil) 10 mg TID PO Last administered on 07/28/17 08: 27; Admin Dose 10 MG; Start 07/26/17 at 13:00 Multivitamins Therapeutic (Theragran) 1 tab DAILY PO Last administered on 07/28 08:27; Admin Dose 1 TAB; Start 07/27/17 at 09:00 Thiamine HCl (Vitamin B1) 100 mg DAILY PO Last administered on 07/28/17 08:27 ; Admin Dose 100 MG; Start 07/27/17 at 09:00 Ferrous Sulfate (Feosol Liquid Cup) 300 mg BID NGT Last administered on 08:27; Admin Dose 300 MG; Start 07/27/17 at 09:00 Tramadol HCl (Ultram) 25 mg Q6H PRN PO PAIN Last administered on 07/28/17 05: 41; Admin Dose 25 MG; Start 07/27/17 at 18:00 Amlodipine Besylate (Norvasc) 5 mg BID PO Last administered on 07/28/17 08:28 ; Admin Dose 5 MG; Start 07/27/17 at 21:00 David Martinez DO Jul 28, 2017 11:40
--- NOTE | 2017-07-28 12:43 | RADRPT ---
PROCEDURE: Right knee x-ray CLINICAL INDICATION: post fall and right knee pain TECHNIQUE: AP, lateral, and oblique views of the knee were obtained. COMPARISON: None FINDINGS: No acute fracture or dislocation is seen. There is normal mineralization. There are no significant degenerative changes. There is no joint effusion. Prominent atherosclerotic vascular calcifications of the popliteal and infrapopliteal arteries are n oted. IMPRESSION: No evidence of an acute fracture or significant degenerative changes. Prominent atherosclerotic vascular calcifications. RPTAT: EE Physician Delicia Date Time Electronically viewed and signed by Davi Barrera Physician on 07/28/2017 12:43 RA/
[2017-07-28] MEDS: FUROSEMIDE 20 MG INJ IV SCH (18:01)
[2017-07-28] MEDS: ATORVASTATIN 40 MG TAB PO SCH (21:47)
[2017-07-29] VITALS (12 sets, daily range): BP systolic 139–183; BP diastolic 63–93; PULSE 62–73; RESP 16–19
[2017-07-29] MEDS: FUROSEMIDE 20 MG INJ IV SCH ×2 (05:54→17:24)
[2017-07-29] MEDS: traMADol 50 MG TAB PO PRN ×3 (05:59→20:29)
[2017-07-29 08:37] LABS: ABNORMAL IP MESSAGE 1; BASOPHILS % 0.4 % (0.0-2.0); EOSINOPHILS # 0.3 10^3/ul (0.0-0.5); HEMATOCRIT 33.2 % (42.0-52.0); HEMOGLOBIN 10.8 g/dl (14.0-18.0); LYMPHOCYTES # 1.5 10^3/ul (0.8-2.9); LYMPHOCYTES % 21.3 % (15.0-51.0); MEAN CORPUSCULAR HEMOGLOBIN 25.5 pg (29.0-33.0); MEAN CORPUSCULAR HGB CONC 32.5 g/dl (32.0-37.0); MEAN CORPUSCULAR VOLUME 78.3 fl (82.0-101.0); MEAN PLATELET VOLUME 9.9 fl (7.4-10.4); MONOCYTE # 1.2 10^3/ul (0.3-0.9); MONOCYTES % 17.8 % (0.0-11.0); NEUTROPHIL # 3.8 10^3/ul (1.6-7.5); NEUTROPHILS % 55.4 % (39.0-77.0); PLATELET COUNT 204 10^3/UL (140-415); POSITIVE DIFF @See below; RED BLOOD COUNT 4.24 10^6/ul (4.70-6.10); RED CELL DISTRIBUTION WIDTH 24.8 % (11.5-14.5); WHITE BLOOD COUNT 6.8 10^3/ul (4.8-10.8)
[2017-07-29] MEDS: ISOSORBIDE DINITRATE 10 MG TAB PO SCH ×3 (08:40→20:28)
[2017-07-29] MEDS: ASPIRIN 81 MG TAB GTB SCH (08:40)
[2017-07-29] MEDS: THIAMINE 100 MG TAB PO SCH (08:41)
[2017-07-29] MEDS: AMLODIPINE 5 MG TAB PO SCH ×2 (08:41→20:28)
[2017-07-29] MEDS: FOLIC ACID 1 MG TAB PO SCH (08:41)
[2017-07-29] MEDS: FERROUS SULFATE 60 MG/ML 5ML CUP NGT SCH ×2 (08:43→20:27)
[2017-07-29] MEDS: MULTIVITAMINS THERAPEUTIC TAB PO SCH (08:43)
[2017-07-29] MEDS: FAMOTIDINE 20 MG INJ IV SCH (08:43)
[2017-07-29] MEDS: ENOXAPARIN 40 MG/0.4 ML SYG SC SCH (08:56)
[2017-07-29 09:04] LABS: MAGNESIUM 1.6 mg/dl (1.7-2.5); PHOSPHORUS 4.2 mg/dl (2.5-4.9)
[2017-07-29 09:09] LABS: ALBUMIN 3.3 g/dl (3.3-4.9); ALBUMIN/GLOBULIN RATIO 0.82; BILIRUBIN,INDIRECT 0.3 mg/dl (0-1.1); BILIRUBIN,TOTAL 0.3 mg/dl (0.2-1.3); CALCIUM 9.3 mg/dl (8.4-10.2); CREATININE 1.28 mg/dl (0.61-1.24); POTASSIUM 3.6 mmol/L (3.5-5.1); TOTAL PROTEIN 7.3 g/dl (6.1-8.1)
--- NOTE | 2017-07-29 11:44 | PN ---
Date/Time of Note Date/Time of Note DATE: 07/29/17 TIME: 11:43 Assessment/Plan VTE Prophylaxis VTE Prophylaxis Intervention: LMWH Lines/Catheters IV [facility]ter [facility]from [facility] Saline Lock Urinary Cath still in place: Yes Reason Cath still needed: other (indicate) (diuresis ) Assessment/Plan Assessment/Plan 62-year-old male with: 1. Episode of severe bradycardia: Now per report patient has never lost his pulse. Patient with acute respiratory failure and bradycardia, etiology is likely primary respiratory. Currently sinus rhythm, stable from cardiac standpoint so far. It became apparent that the patient may have been enrolled in the clinical trial for medication for patients with congestive heart failure, it is unclear if he actually took it as the papers seems to have been signed on 07/23. Serial troponin negative x 3. Repeat 2D echocardiogram with ejection fraction unchanged at 25% Repleting magnesium Appreciate recommendations from cardiology, will discuss discharge planning the next 24 hours hopefully. 2. S/p Acute respiratory failure: It is unclear if the patient went into respiratory failure first or had a cardiac event first. He seems to be likely that the patient went into CHF exacerbation and respiratory failure first probably. Patient extubated yesterday, on room air today. Euvolemic on chest x -ray 2 days. Continue diuresis. 3. Severe cardiomyopathy, previous ejection fraction around 25%, patient was discharged on multiple medications for medical management. Unclear if his been compliant. According to his sister, patient has followed up with cardiology last week, according to the girlfriend, patient actually consumes raw salt which would be a major dietary indiscretion in his case. Aldactone has been discontinued, patient on twice daily Lasix 20 mg IV. Chest x-ray much improved x 2 days and patient overall volume status much improved, seems to be euvolemic today. 4. Acute kidney injury on chronic kidney disease, status post respiratory failure and cardiac arrest. Nephrology consult today with Dr. Bermeo. Renal function improved, will plan to DC Rodriguez catheter in the next 24 hours Strict I's and O's, diuresis with Lasix and dosing per Dr. Bermeo. 5. Hypertensive emergency, patient's blood pressure much better controlled, off Cardene drip since admission to ICU. Back on Isosorbide, given the bradycardic episode on admission, started on Norvasc, heart rate stable, will discuss with cardiology if to resume carvedilol at all. If okay with nephrology, also will plan on resuming ARB Follow-up cardiology and nephrology recommendations. 6. Loose stools, resolved, C. difficile negative. 7. History of seizure disorder, patient has been off medications. No seizures. According to the sister last grand mal seizures was 2 years ago, patient was also consuming alcohol back then so unclear if it was primary epilepsy versus withdrawal. 8. History of alcohol abuse: On his last admission, patient voiced that he had quit. 9. History of tobacco abuse: Patient has been counseled to quit tobacco hopefully he has quit. If not nicotine patch will be needed. 10. Right knee pain, status post fall/syncope with episode of acute respiratory failure while at home, x-ray right knee within normal limits, pain control, physical therapy Prophylaxis: Lovenox for DVT prophylaxis and Protonix for gastrointestinal prophylaxis. Disposition: Follow-up cardiology and nephrology recommendations. Continue diuresis and monitor renal function. Physical therapy, discharge planning in the next 24 hours hopefully with plan to go home with home health RN and PT if needed. Subjective 24 Hr Interval Summary Free Text/Dictation Patient doing well today, he remains on room air, no orthopnea, no lower extremity edema noted. Renal function keeps improving. Will have physical therapy evaluation as patient insisted on going home at discharge hopefully in the next 24 hours if there is no additional cardiology workup needed. Exam/Review of Systems Vital Signs Vitals Vital Signs Date Time Temp Pulse Resp B/P Pulse Ox O2 Delivery O2 Flow Rate FiO2 07/29/17 11:15 98.0 60 16 140/79 98 07/28/17 17:45 Room Air 07/28/17 14:00 3.0 07/27/17 11:55 30 Intake and Output 07/28/17 07/28/17 07/29/17 15:00 23:00 07:00 Intake Total 330 ml 510 ml 900 ml Output Total 550 ml 900 ml 1400 ml Balance -220 ml -390 ml -500 ml Exam Constitutional: alert, oriented, well developed Respiratory: clear to auscultation, normal air movement Cardiovascular: nl pulses, regular rate and rhythm Gastrointestinal: non-tender, soft Musculoskeletal: nl extremities to inspection, other (No edema, clubbing or cyanosis) Extremities: normal pulses, other (Right knee pain improved) 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 TEACHER II-XII intact, nl mental status, nl speech Results Result Diagram: 07/29/17 0730 07/29/17 0730 Results 24 hrs Laboratory Tests Test 07/29/17 07:30 White Blood Count 6.8 Red Blood Count 4.24 L Hemoglobin 10.8 L Hematocrit 33.2 L Mean Corpuscular Volume 78.3 L Mean Corpuscular Hemoglobin 25.5 L Mean Corpuscular Hemoglobin Concent 32.5 Red Cell Distribution Width 24.8 H Platelet Count 204 Mean Platelet Volume 9.9 Neutrophils % 55.4 Lymphocytes % 21.3 Monocytes % 17.8 H Eosinophils % 5.0 Basophils % 0.4 Nucleated Red Blood Cells % 0.0 Neutrophils # 3.8 Lymphocytes # 1.5 Monocytes # 1.2 H Eosinophils # 0.3 Basophils # 0.0 Nucleated Red Blood Cells # 0.0 Sodium Level 135 Potassium Level 3.6 Chloride Level 102 Carbon Dioxide Level 28 Anion Gap 9 Blood Urea Nitrogen 13 Creatinine 1.28 H Glucose Level 97 Calcium Level 9.3 Phosphorus Level 4.2 Magnesium Level 1.6 L Total Bilirubin 0.3 Direct Bilirubin 0.00 Indirect Bilirubin 0.3 Aspartate Amino Transf (AST/SGOT) 28 Alanine Aminotransferase (ALT/SGPT) 24 Alkaline Phosphatase 103 Total Protein 7.3 Albumin 3.3 Globulin 4.00 H Albumin/Globulin Ratio 0.82 Imaging Free Text/Dictation PROCEDURE: Right knee x-ray CLINICAL INDICATION: post fall and right knee pain TECHNIQUE: AP, lateral, and oblique views of the knee were obtained. COMPARISON: None FINDINGS: No acute fracture or dislocation is seen. There is normal mineralization. There are no significant degenerative changes. There is no joint effusion. Prominent atherosclerotic vascular calcifications of the popliteal and infrapopliteal arteries are noted. IMPRESSION: No evidence of an acute fracture or significant degenerative changes. Prominent atherosclerotic vascular calcifications. Medications Medications Current Medications Acetaminophen (Tylenol Liquid) 650 mg Q6H PRN PO PAIN LEVEL 1-3 OR FEVER; Start 07/25/17 at 12:00 Famotidine (Pepcid Iv) 20 mg BID IV Last administered on 07/29/17 08:43; Admin Dose 20 MG; Start 07/26/17 at 09:00 Enoxaparin Sodium (Lovenox) 40 mg DAILY SC Last administered on 07/29/17 08: 56; Admin Dose 40 MG; Start 07/25/17 at 13:30 Hydralazine HCl (Apresoline) 10 mg Q4H PRN IV SBP > 160 Last administered on 18:01; Admin Dose 10 MG; Start 07/25/17 at 17:30 Aspirin (Aspirin) 81 mg DAILY GTB Last administered on 07/29/17 08:40; Admin Dose 81 MG; Start 07/25/17 at 18:24 Atorvastatin Calcium (Lipitor) 40 mg HS PO Last administered on 07/28/17 21: 47; Admin Dose 40 MG; Start 07/26/17 at 21:00 Folic Acid (Folic Acid) 1 mg DAILY PO Last administered on 07/29/17 08:41; Admin Dose 1 MG; Start 07/27/17 at 09:00 Isosorbide Dinitrate (Isordil) 10 mg TID PO Last administered on 07/29/17 08: 40; Admin Dose 10 MG; Start 07/26/17 at 13:00 Multivitamins Therapeutic (Theragran) 1 tab DAILY PO Last administered on 07/29 08:43; Admin Dose 1 TAB; Start 07/27/17 at 09:00 Thiamine HCl (Vitamin B1) 100 mg DAILY PO Last administered on 07/29/17 08:41 ; Admin Dose 100 MG; Start 07/27/17 at 09:00 Ferrous Sulfate (Feosol Liquid Cup) 300 mg BID NGT Last administered on 08:43; Admin Dose 300 MG; Start 07/27/17 at 09:00 Tramadol HCl (Ultram) 25 mg Q6H PRN PO PAIN Last administered on 07/29/17 05: 59; Admin Dose 25 MG; Start 07/27/17 at 18:00 Amlodipine Besylate (Norvasc) 5 mg BID PO Last administered on 07/29/17 08:41 ; Admin Dose 5 MG; Start 07/27/17 at 21:00 ASHISH US Jul 29, 2017 11:44
--- NOTE | 2017-07-29 11:54 | CONS ---
Date/Time of Note Date/Time of Note DATE: 07/29/17 TIME: 11:53 Assessment/Plan Assessment/Plan Additional Assessment/Plan Assessment and recommendations; 1. Patient admitted with hypertensive crisis with pulmonary edema with marked clinical and radiological improvement. Continue current supportive care. Consultation Date/Type/Reason Admit Date/Time Jul 25, 2017 at 13:20 Initial Consult Date 07/27/17 Type of Consultation: Pulmonary Referring Provider: ASHISH US 24 HR Interval Summary Free Text/Dictation Patient's condition is stable. Remains completely awake and alert. Denies any shortness of breath, chest pain. Next General exam; elderly male, awake alert, currently in no distress. Exam/Review of Systems Vital Signs Vitals Vital Signs Date Time Temp Pulse Resp B/P Pulse Ox O2 Delivery O2 Flow Rate FiO2 07/29/17 11:15 98.0 60 16 140/79 98 07/28/17 17:45 Room Air 07/28/17 14:00 3.0 07/27/17 11:55 30 Intake and Output 07/28/17 07/28/17 07/29/17 15:00 23:00 07:00 Intake Total 330 ml 510 ml 900 ml Output Total 550 ml 900 ml 1400 ml Balance -220 ml -390 ml -500 ml Exam HEENT exam; supple neck, no JVD. No lymphadenopathy. Midline trachea. No thyromegaly. Patient has a multiple carious teeth. Chest exam; clear to auscultation. S1-S2 audible, no murmurs. Regular rhythm. Abdomen exam; soft, nontender. No organomegaly. Bowel sounds audible. Extremity exam; no peripheral edema. No clubbing. Pulses 1+ bilaterally. CRYOGENICS ENGINEER exam; no focal deficit. Results Result Diagram: 07/29/17 0730 07/29/17 0730 Results 24 hrs Laboratory Tests Test 07/29/17 07:30 White Blood Count 6.8 Red Blood Count 4.24 L Hemoglobin 10.8 L Hematocrit 33.2 L Mean Corpuscular Volume 78.3 L Mean Corpuscular Hemoglobin 25.5 L Mean Corpuscular Hemoglobin Concent 32.5 Red Cell Distribution Width 24.8 H Platelet Count 204 Mean Platelet Volume 9.9 Neutrophils % 55.4 Lymphocytes % 21.3 Monocytes % 17.8 H Eosinophils % 5.0 Basophils % 0.4 Nucleated Red Blood Cells % 0.0 Neutrophils # 3.8 Lymphocytes # 1.5 Monocytes # 1.2 H Eosinophils # 0.3 Basophils # 0.0 Nucleated Red Blood Cells # 0.0 Sodium Level 135 Potassium Level 3.6 Chloride Level 102 Carbon Dioxide Level 28 Anion Gap 9 Blood Urea Nitrogen 13 Creatinine 1.28 H Glucose Level 97 Calcium Level 9.3 Phosphorus Level 4.2 Magnesium Level 1.6 L Total Bilirubin 0.3 Direct Bilirubin 0.00 Indirect Bilirubin 0.3 Aspartate Amino Transf (AST/SGOT) 28 Alanine Aminotransferase (ALT/SGPT) 24 Alkaline Phosphatase 103 Total Protein 7.3 Albumin 3.3 Globulin 4.00 H Albumin/Globulin Ratio 0.82 Medications Medications Current Medications Acetaminophen (Tylenol Liquid) 650 mg Q6H PRN PO PAIN LEVEL 1-3 OR FEVER; Start 07/25/17 at 12:00 Famotidine (Pepcid Iv) 20 mg BID IV Last administered on 07/29/17 08:43; Admin Dose 20 MG; Start 07/26/17 at 09:00 Enoxaparin Sodium (Lovenox) 40 mg DAILY SC Last administered on 07/29/17 08: 56; Admin Dose 40 MG; Start 07/25/17 at 13:30 Hydralazine HCl (Apresoline) 10 mg Q4H PRN IV SBP > 160 Last administered on 18:01; Admin Dose 10 MG; Start 07/25/17 at 17:30 Aspirin (Aspirin) 81 mg DAILY GTB Last administered on 07/29/17 08:40; Admin Dose 81 MG; Start 07/25/17 at 18:24 Atorvastatin Calcium (Lipitor) 40 mg HS PO Last administered on 07/28/17 21: 47; Admin Dose 40 MG; Start 07/26/17 at 21:00 Folic Acid (Folic Acid) 1 mg DAILY PO Last administered on 07/29/17 08:41; Admin Dose 1 MG; Start 07/27/17 at 09:00 Isosorbide Dinitrate (Isordil) 10 mg TID PO Last administered on 07/29/17 08: 40; Admin Dose 10 MG; Start 07/26/17 at 13:00 Multivitamins Therapeutic (Theragran) 1 tab DAILY PO Last administered on 07/29 08:43; Admin Dose 1 TAB; Start 07/27/17 at 09:00 Thiamine HCl (Vitamin B1) 100 mg DAILY PO Last administered on 07/29/17 08:41 ; Admin Dose 100 MG; Start 07/27/17 at 09:00 Ferrous Sulfate (Feosol Liquid Cup) 300 mg BID NGT Last administered on 08:43; Admin Dose 300 MG; Start 07/27/17 at 09:00 Tramadol HCl (Ultram) 25 mg Q6H PRN PO PAIN Last administered on 07/29/17 05: 59; Admin Dose 25 MG; Start 07/27/17 at 18:00 Amlodipine Besylate 5 mg 5 mg BID PO Last administered on 07/29/17 08:41; Admin Dose 5 MG; Start 07/27/17 at 21:00 Magnesium Sulfate (Magnesium Sulfate 4 Gm/100 ml) 100 ml @ 25 mls/hr ONCE ONCE IVPB ; Start 07/29/17 at 13:00; Stop 07/29/17 at 16:59 MAGGY VARGAS Jul 29, 2017 11:54
[2017-07-29] MEDS ORDERED: MAGNESIUM SULFATE 4 GM/100 ML 100 ML IVPB ONE (13:00)
--- NOTE | 2017-07-29 17:24 | CONS ---
Date/Time of Note Date/Time of Note DATE: 07/29/17 TIME: 17:22 Assessment/Plan Assessment/Plan Additional Assessment/Plan 1. acute kidney injury on CKD due to hemodyanicas from CHF 2. acute CHF exacerbation, acute on chronic 3. Cardiomyopathy wtih low EF 25% 4. acute resp failrue requiring Ventilator care 5. H/o sezure disorder 6> severe bradycardia Plan: s/p extubation on 07/27/17, stable, on Lasix 20mg IV BID making good urine output Cr 1.28, mag 1.6- magnesium sulfate 2 gram IV X 1 dose today Urine stuides and renal US has been unremarkable, Kidney size and echogenicity c /w CKD will continue to follow up on patient Consultation Date/Type/Reason Admit Date/Time Jul 25, 2017 at 13:20 Initial Consult Date 07/27/17 Type of Consultation: NEPHROLOGY Referring Provider: ASHISH US 24 HR Interval Summary Free Text/Dictation Cr 1.28, mag 1.6, BP stable Exam/Review of Systems Vital Signs Vitals Vital Signs Date Time Temp Pulse Resp B/P Pulse Ox O2 Delivery O2 Flow Rate FiO2 07/29/17 16:08 62 07/29/17 15:15 98.0 16 139/88 97 07/28/17 17:45 Room Air 07/28/17 14:00 3.0 07/27/17 11:55 30 Intake and Output 07/28/17 07/28/17 07/29/17 15:00 23:00 07:00 Intake Total 330 ml 510 ml 900 ml Output Total 550 ml 900 ml 1400 ml Balance -220 ml -390 ml -500 ml Exam Constitutional: alert, oriented, other (extubated ) Head: normocephalic Neck: non-tender, supple Respiratory: crackles/rales, diminished breath sounds Cardiovascular: regular rate and rhythm Gastrointestinal: non-tender, soft Genitourinary - Male: other (+ omhan catheter ) Musculoskeletal: nl extremities to inspection Neurological: other (aler, awake, follows commands ) Results Result Diagram: 07/29/17 0730 07/29/17 0730 Results 24 hrs Laboratory Tests Test 07/29/17 07:30 White Blood Count 6.8 Red Blood Count 4.24 L Hemoglobin 10.8 L Hematocrit 33.2 L Mean Corpuscular Volume 78.3 L Mean Corpuscular Hemoglobin 25.5 L Mean Corpuscular Hemoglobin Concent 32.5 Red Cell Distribution Width 24.8 H Platelet Count 204 Mean Platelet Volume 9.9 Neutrophils % 55.4 Lymphocytes % 21.3 Monocytes % 17.8 H Eosinophils % 5.0 Basophils % 0.4 Nucleated Red Blood Cells % 0.0 Neutrophils # 3.8 Lymphocytes # 1.5 Monocytes # 1.2 H Eosinophils # 0.3 Basophils # 0.0 Nucleated Red Blood Cells # 0.0 Sodium Level 135 Potassium Level 3.6 Chloride Level 102 Carbon Dioxide Level 28 Anion Gap 9 Blood Urea Nitrogen 13 Creatinine 1.28 H Glucose Level 97 Calcium Level 9.3 Phosphorus Level 4.2 Magnesium Level 1.6 L Total Bilirubin 0.3 Direct Bilirubin 0.00 Indirect Bilirubin 0.3 Aspartate Amino Transf (AST/SGOT) 28 Alanine Aminotransferase (ALT/SGPT) 24 Alkaline Phosphatase 103 Total Protein 7.3 Albumin 3.3 Globulin 4.00 H Albumin/Globulin Ratio 0.82 Medications Medications Current Medications Acetaminophen (Tylenol Liquid) 650 mg Q6H PRN PO PAIN LEVEL 1-3 OR FEVER; Start 07/25/17 at 12:00 Famotidine (Pepcid Iv) 20 mg BID IV Last administered on 07/29/17 08:43; Admin Dose 20 MG; Start 07/26/17 at 09:00 Enoxaparin Sodium (Lovenox) 40 mg DAILY SC Last administered on 07/29/17 08: 56; Admin Dose 40 MG; Start 07/25/17 at 13:30 Hydralazine HCl (Apresoline) 10 mg Q4H PRN IV SBP > 160 Last administered on 18:01; Admin Dose 10 MG; Start 07/25/17 at 17:30 Aspirin (Aspirin) 81 mg DAILY GTB Last administered on 07/29/17 08:40; Admin Dose 81 MG; Start 07/25/17 at 18:24 Atorvastatin Calcium (Lipitor) 40 mg HS PO Last administered on 07/28/17 21: 47; Admin Dose 40 MG; Start 07/26/17 at 21:00 Folic Acid (Folic Acid) 1 mg DAILY PO Last administered on 07/29/17 08:41; Admin Dose 1 MG; Start 07/27/17 at 09:00 Isosorbide Dinitrate (Isordil) 10 mg TID PO Last administered on 07/29/17 12: 31; Admin Dose 10 MG; Start 07/26/17 at 13:00 Multivitamins Therapeutic (Theragran) 1 tab DAILY PO Last administered on 07/29 08:43; Admin Dose 1 TAB; Start 07/27/17 at 09:00 Thiamine HCl (Vitamin B1) 100 mg DAILY PO Last administered on 07/29/17 08:41 ; Admin Dose 100 MG; Start 07/27/17 at 09:00 Ferrous Sulfate (Feosol Liquid Cup) 300 mg BID NGT Last administered on 08:43; Admin Dose 300 MG; Start 07/27/17 at 09:00 Tramadol HCl (Ultram) 25 mg Q6H PRN PO PAIN Last administered on 07/29/17 12: 39; Admin Dose 25 MG; Start 07/27/17 at 18:00 Amlodipine Besylate (Norvasc) 5 mg BID PO Last administered on 07/29/17 08:41 ; Admin Dose 5 MG; Start 07/27/17 at 21:00 JAMILA GARCÍA MD Jul 29, 2017 17:24
--- NOTE | 2017-07-29 18:28 | PN ---
Date/Time of Note Date/Time of Note DATE: 07/29/17 TIME: 18:27 Assessment/Plan VTE Prophylaxis VTE Prophylaxis Intervention: SCD's Lines/Catheters IV Catheter Type (from Nrs): Saline Lock Urinary Cath still in place: Yes Reason Cath still needed: urinary retention Assessment/Plan Assessment/Plan Respiratory failure status post extubation Bradycardia, resolved Hypertension urgency/emergency Severe cardiomyopathy with ejection fraction 25% Acute decompensated systolic congestive heart failure Acute kidney injury History of GI bleed History of alcohol abuse and illicit drug - Blood pressure medications have been restarted, diuretics as per our nephrology colleagues -Bradycardia induced by resp distress > no profound recurrecne thereafter -d/c planning tomorro Subjective 24 Hr Interval Summary Free Text/Dictation The aptient doing much better Exam/Review of Systems Vital Signs Vitals Vital Signs Date Time Temp Pulse Resp B/P Pulse Ox O2 Delivery O2 Flow Rate FiO2 07/29/17 16:08 62 07/29/17 15:15 98.0 16 139/88 97 07/28/17 17:45 Room Air 07/28/17 14:00 3.0 07/27/17 11:55 30 Intake and Output 07/28/17 07/28/17 07/29/17 15:00 23:00 07:00 Intake Total 330 ml 510 ml 900 ml Output Total 550 ml 900 ml 1400 ml Balance -220 ml -390 ml -500 ml Results Result Diagram: 07/29/17 0730 07/29/17 0730 Results 24 hrs Laboratory Tests Test 07/29/17 07:30 White Blood Count 6.8 Red Blood Count 4.24 L Hemoglobin 10.8 L Hematocrit 33.2 L Mean Corpuscular Volume 78.3 L Mean Corpuscular Hemoglobin 25.5 L Mean Corpuscular Hemoglobin Concent 32.5 Red Cell Distribution Width 24.8 H Platelet Count 204 Mean Platelet Volume 9.9 Neutrophils % 55.4 Lymphocytes % 21.3 Monocytes % 17.8 H Eosinophils % 5.0 Basophils % 0.4 Nucleated Red Blood Cells % 0.0 Neutrophils # 3.8 Lymphocytes # 1.5 Monocytes # 1.2 H Eosinophils # 0.3 Basophils # 0.0 Nucleated Red Blood Cells # 0.0 Sodium Level 135 Potassium Level 3.6 Chloride Level 102 Carbon Dioxide Level 28 Anion Gap 9 Blood Urea Nitrogen 13 Creatinine 1.28 H Glucose Level 97 Calcium Level 9.3 Phosphorus Level 4.2 Magnesium Level 1.6 L Total Bilirubin 0.3 Direct Bilirubin 0.00 Indirect Bilirubin 0.3 Aspartate Amino Transf (AST/SGOT) 28 Alanine Aminotransferase (ALT/SGPT) 24 Alkaline Phosphatase 103 Total Protein 7.3 Albumin 3.3 Globulin 4.00 H Albumin/Globulin Ratio 0.82 Medications Medications Current Medications Acetaminophen (Tylenol Liquid) 650 mg Q6H PRN PO PAIN LEVEL 1-3 OR FEVER; Start 07/25/17 at 12:00 Famotidine (Pepcid Iv) 20 mg BID IV Last administered on 07/29/17 08:43; Admin Dose 20 MG; Start 07/26/17 at 09:00 Enoxaparin Sodium (Lovenox) 40 mg DAILY SC Last administered on 07/29/17 08: 56; Admin Dose 40 MG; Start 07/25/17 at 13:30 Hydralazine HCl (Apresoline) 10 mg Q4H PRN IV SBP > 160 Last administered on 18:01; Admin Dose 10 MG; Start 07/25/17 at 17:30 Aspirin (Aspirin) 81 mg DAILY GTB Last administered on 07/29/17 08:40; Admin Dose 81 MG; Start 07/25/17 at 18:24 Atorvastatin Calcium (Lipitor) 40 mg HS PO Last administered on 07/28/17 21: 47; Admin Dose 40 MG; Start 07/26/17 at 21:00 Folic Acid (Folic Acid) 1 mg DAILY PO Last administered on 07/29/17 08:41; Admin Dose 1 MG; Start 07/27/17 at 09:00 Isosorbide Dinitrate (Isordil) 10 mg TID PO Last administered on 07/29/17 12: 31; Admin Dose 10 MG; Start 07/26/17 at 13:00 Multivitamins Therapeutic (Theragran) 1 tab DAILY PO Last administered on 07/29 08:43; Admin Dose 1 TAB; Start 07/27/17 at 09:00 Thiamine HCl (Vitamin B1) 100 mg DAILY PO Last administered on 07/29/17 08:41 ; Admin Dose 100 MG; Start 07/27/17 at 09:00 Ferrous Sulfate (Feosol Liquid Cup) 300 mg BID NGT Last administered on 11/16/ 17at 08:43; Admin Dose 300 MG; Start 07/27/17 at 09:00 Tramadol HCl (Ultram) 25 mg Q6H PRN PO PAIN Last administered on 07/29/17 12: 39; Admin Dose 25 MG; Start 07/27/17 at 18:00 Amlodipine Besylate (Norvasc) 5 mg BID PO Last administered on 07/29/17 08:41 ; Admin Dose 5 MG; Start 07/27/17 at 21:00 JONATHAN AMBRIZ MD Jul 29, 2017 18:28
[2017-07-29] MEDS: ATORVASTATIN 40 MG TAB PO SCH (20:28)
[2017-07-29] MEDS: FAMOTIDINE 20 MG TAB PO SCH (20:28)
[2017-07-30] VITALS (13 sets, daily range): BP systolic 135–180; BP diastolic 67–100; PULSE 62–78; RESP 16–20
[2017-07-30] MEDS: ACETAMINOPHEN 650MG/20.3ML CUP PO PRN ×2 (00:30→06:14)
[2017-07-30] MEDS: hydrALAzine 20 MG INJ IV PRN ×3 (00:44→21:45)
[2017-07-30] MEDS: traMADol 50 MG TAB PO PRN ×2 (03:31→21:50)
[2017-07-30] MEDS: FUROSEMIDE 20 MG INJ IV SCH ×2 (05:51→17:52)
[2017-07-30 08:29] LABS: ABNORMAL IP MESSAGE 1; BASOPHILS % 0.6 % (0.0-2.0); EOSINOPHILS # 0.4 10^3/ul (0.0-0.5); EOSINOPHILS % 5.2 % (0.0-7.0); HEMATOCRIT 33.8 % (42.0-52.0); HEMOGLOBIN 11.2 g/dl (14.0-18.0); LYMPHOCYTES # 1.7 10^3/ul (0.8-2.9); LYMPHOCYTES % 25.1 % (15.0-51.0); MEAN CORPUSCULAR HEMOGLOBIN 25.7 pg (29.0-33.0); MEAN CORPUSCULAR HGB CONC 33.1 g/dl (32.0-37.0); MEAN CORPUSCULAR VOLUME 77.7 fl (82.0-101.0); MEAN PLATELET VOLUME 9.7 fl (7.4-10.4); MONOCYTES % 14.9 % (0.0-11.0); NEUTROPHIL # 3.6 10^3/ul (1.6-7.5); NEUTROPHILS % 54.1 % (39.0-77.0); PLATELET COUNT 215 10^3/UL (140-415); POSITIVE DIFF @See below; RED BLOOD COUNT 4.35 10^6/ul (4.70-6.10); RED CELL DISTRIBUTION WIDTH 24.3 % (11.5-14.5); WHITE BLOOD COUNT 6.7 10^3/ul (4.8-10.8)
[2017-07-30] MEDS: ENOXAPARIN 40 MG/0.4 ML SYG SC SCH (08:45)
[2017-07-30] MEDS: ASPIRIN 81 MG TAB GTB SCH (08:46)
[2017-07-30] MEDS: FERROUS SULFATE 60 MG/ML 5ML CUP NGT SCH ×2 (08:46→21:43)
[2017-07-30] MEDS: THIAMINE 100 MG TAB PO SCH (08:46)
[2017-07-30] MEDS: AMLODIPINE 5 MG TAB PO SCH ×2 (08:47→21:45)
[2017-07-30] MEDS: ISOSORBIDE DINITRATE 10 MG TAB PO SCH ×3 (08:47→21:46)
[2017-07-30] MEDS: FAMOTIDINE 20 MG TAB PO SCH ×2 (08:47→21:50)
[2017-07-30] MEDS: MULTIVITAMINS THERAPEUTIC TAB PO SCH (08:47)
[2017-07-30] MEDS: FOLIC ACID 1 MG TAB PO SCH (08:47)
[2017-07-30 08:55] LABS: CALCIUM 9.5 mg/dl (8.4-10.2); CREATININE 1.15 mg/dl (0.61-1.24); POTASSIUM 3.4 mmol/L (3.5-5.1)
[2017-07-30 09:02] LABS: MAGNESIUM 1.6 mg/dl (1.7-2.5); PHOSPHORUS 4.2 mg/dl (2.5-4.9)
[2017-07-30] MEDS ORDERED: POTASSIUM CHLORIDE (SR) 20 MEQ TAB PO STA (09:08)
[2017-07-30] MEDS: LOSARTAN 50 MG TAB PO SCH ×2 (09:24→21:46)
--- NOTE | 2017-07-30 09:38 | CONS ---
Date/Time of Note Date/Time of Note DATE: 07/30/17 TIME: 09:36 Assessment/Plan Assessment/Plan Additional Assessment/Plan Assessment and recommendations; 1. Patient admitted with flash pulmonary edema with marked clinical and radiological improvement. 2. Renal insufficiency with admission with normalization of renal function. 3. History of underlying hypertension. Continue current treatment. Consider discharge. Please reconsult if needed. Consultation Date/Type/Reason Admit Date/Time Jul 25, 2017 at 13:20 Initial Consult Date 07/27/17 Type of Consultation: Pulmonary Referring Provider: ASHISH US 24 HR Interval Summary Free Text/Dictation Patient's condition is stable. Denies any shortness of breath, chest pain. General exam; middle-aged male, awake alert, currently in no distress. Exam/Review of Systems Vital Signs Vitals Vital Signs Date Time Temp Pulse Resp B/P Pulse Ox O2 Delivery O2 Flow Rate FiO2 07/30/17 08:56 69 07/30/17 07:24 98.0 18 135/70 96 07/30/17 00:49 3.0 07/28/17 17:45 Room Air 07/27/17 11:55 30 Intake and Output 07/29/17 07/29/17 07/30/17 15:00 23:00 07:00 Intake Total 940 ml 900 ml Output Total 1100 ml 2500 ml Balance -160 ml -1600 ml Exam HEENT exam; supple neck, no JVD. No lymphadenopathy. Midline trachea. No thyromegaly. Pharynx is clear. Patient has a multiple carious teeth. Chest exam; clear to auscultation. S1-S2 audible, no murmurs. Regular rhythm. Abdomen exam; soft, nontender. No organomegaly. Bowel sounds audible. Extremity exam; no peripheral edema. [employer] SUPER[employer] exam; no focal deficit. Results Result Diagram: 07/30/1715 07/30/17 0715 Results 24 hrs Laboratory Tests Test 07/30/17 07:15 White Blood Count 6.7 Red Blood Count 4.35 L Hemoglobin 11.2 L Hematocrit 33.8 L Mean Corpuscular Volume 77.7 L Mean Corpuscular Hemoglobin 25.7 L Mean Corpuscular Hemoglobin Concent 33.1 Red Cell Distribution Width 24.3 H Platelet Count 215 Mean Platelet Volume 9.7 Neutrophils % 54.1 Lymphocytes % 25.1 Monocytes % 14.9 H Eosinophils % 5.2 Basophils % 0.6 Nucleated Red Blood Cells % 0.0 Neutrophils # 3.6 Lymphocytes # 1.7 Monocytes # 1.0 H Eosinophils # 0.4 Basophils # 0.0 Nucleated Red Blood Cells # 0.0 Sodium Level 134 L Potassium Level 3.4 L Chloride Level 97 Carbon Dioxide Level 27 Anion Gap 13 Blood Urea Nitrogen 10 Creatinine 1.15 Glucose Level 97 Calcium Level 9.5 Phosphorus Level 4.2 Magnesium Level 1.6 L Medications Medications Current Medications Acetaminophen (Tylenol Liquid) 650 mg Q6H PRN PO PAIN LEVEL 1-3 OR FEVER Last administered on 07/30/17 06:14; Admin Dose 650 MG; Start 07/25/17 at 12:00 Enoxaparin Sodium (Lovenox) 40 mg DAILY SC Last administered on 07/30/17 08: 45; Admin Dose 40 MG; Start 07/25/17 at 13:30 Hydralazine HCl (Apresoline) 10 mg Q4H PRN IV SBP > 160 Last administered on 05:50; Admin Dose 10 MG; Start 07/25/17 at 17:30 Aspirin (Aspirin) 81 mg DAILY GTB Last administered on 07/30/17 08:46; Admin Dose 81 MG; Start 07/25/17 at 18:24 Atorvastatin Calcium (Lipitor) 40 mg HS PO Last administered on 07/29/17 20: 28; Admin Dose 40 MG; Start 07/26/17 at 21:00 Folic Acid (Folic Acid) 1 mg DAILY PO Last administered on 07/30/17 08:47; Admin Dose 1 MG; Start 07/27/17 at 09:00 Isosorbide Dinitrate (Isordil) 10 mg TID PO Last administered on 07/30/17 08: 47; Admin Dose 10 MG; Start 07/26/17 at 13:00 Multivitamins Therapeutic (Theragran) 1 tab DAILY PO Last administered on 07/30 08:47; Admin Dose 1 TAB; Start 07/27/17 at 09:00 Thiamine HCl (Vitamin B1) 100 mg DAILY PO Last administered on 07/30/17 08:46 ; Admin Dose 100 MG; Start 07/27/17 at 09:00 Ferrous Sulfate (Feosol Liquid Cup) 300 mg BID NGT Last administered on 08:46; Admin Dose 300 MG; Start 07/27/17 at 09:00 Tramadol HCl (Ultram) 25 mg Q6H PRN PO PAIN Last administered on 07/30/17 03: 31; Admin Dose 25 MG; Start 07/27/17 at 18:00 Amlodipine Besylate (Norvasc) 5 mg BID PO Last administered on 07/30/17 08:47 ; Admin Dose 5 MG; Start 07/27/17 at 21:00 Famotidine (Pepcid) 20 mg BID PO Last administered on 07/30/17 08:47; Admin Dose 20 MG; Start 07/29/17 at 21:00 Losartan Potassium (Cozaar) 50 mg BID PO Last administered on 07/30/17 09:24 ; Admin Dose 50 MG; Start 07/30/17 at 09:00 MAGGY VARGAS Jul 30, 2017 09:38
--- NOTE | 2017-07-30 12:14 | CONS ---
Date/Time of Note Date/Time of Note DATE: 07/30/17 TIME: 12:11 Assessment/Plan Assessment/Plan Additional Assessment/Plan 1. acute kidney injury on CKD due to hemodyanicas from CHF 2. acute CHF exacerbation, acute on chronic 3. Cardiomyopathy wtih low EF 25% 4. acute resp failrue requiring Ventilator care 5. H/o sezure disorder 6> severe bradycardia Plan: s/p extubation on 07/27/17, stable, on Lasix 20mg IV BID Cr normal, mag 1.6- magnesium sulfate 2 gram IV X 1 dose today , [id number] IV x 1 today Urine stuides and renal US has been unremarkable, Kidney size and echogenicity c /w CKD ok to d/c with lasix 20mg po daily with KCl replacement Follow up with me in clinic in 1-2 week after discharge Consultation Date/Type/Reason Admit Date/Time Jul 25, 2017 at 13:20 Initial Consult Date 07/27/17 Type of Consultation: NEPHROLOGY Referring Provider: ASHISH US 24 HR Interval Summary Free Text/Dictation k low,mag low ,Cr normal BP stable Exam/Review of Systems Vital Signs Vitals Vital Signs Date Time Temp Pulse Resp B/P Pulse Ox O2 Delivery O2 Flow Rate FiO2 07/30/17 11:30 98.0 71 16 154/82 100 07/30/17 00:49 3.0 07/28/17 17:45 Room Air 07/27/17 11:55 30 Intake and Output 07/29/17 07/29/17 07/30/17 15:00 23:00 07:00 Intake Total 940 ml 900 ml Output Total 1100 ml 2500 ml Balance -160 ml -1600 ml Exam Constitutional: alert,awake no acute distress Head: normocephalic Neck: non-tender, supple Respiratory: crackles/rales, diminished breath sounds Cardiovascular: regular rate and rhythm Gastrointestinal: non-tender, soft Genitourinary - Male: other (+ mohan catheter ) Musculoskeletal: nl extremities to inspection Neurological: other (aler, awake, follows commands ) Results Result Diagram: 07/30/17 0715 07/30/17 0715 Results 24 hrs Laboratory Tests Test 07/30/17 07:15 White Blood Count 6.7 Red Blood Count 4.35 L Hemoglobin 11.2 L Hematocrit 33.8 L Mean Corpuscular Volume 77.7 L Mean Corpuscular Hemoglobin 25.7 L Mean Corpuscular Hemoglobin Concent 33.1 Red Cell Distribution Width 24.3 H Platelet Count 215 Mean Platelet Volume 9.7 Neutrophils % 54.1 Lymphocytes % 25.1 Monocytes % 14.9 H Eosinophils % 5.2 Basophils % 0.6 Nucleated Red Blood Cells % 0.0 Neutrophils # 3.6 Lymphocytes # 1.7 Monocytes # 1.0 H Eosinophils # 0.4 Basophils # 0.0 Nucleated Red Blood Cells # 0.0 Sodium Level 134 L Potassium Level 3.4 L Chloride Level 97 Carbon Dioxide Level 27 Anion Gap 13 Blood Urea Nitrogen 10 Creatinine 1.15 Glucose Level 97 Calcium Level 9.5 Phosphorus Level 4.2 Magnesium Level 1.6 L Medications Medications Current Medications Acetaminophen (Tylenol Liquid) 650 mg Q6H PRN PO PAIN LEVEL 1-3 OR FEVER Last administered on 07/30/17 06:14; Admin Dose 650 MG; Start 07/25/17 at 12:00 Enoxaparin Sodium (Lovenox) 40 mg DAILY SC Last administered on 07/30/17 08: 45; Admin Dose 40 MG; Start 07/25/17 at 13:30 Hydralazine HCl (Apresoline) 10 mg Q4H PRN IV SBP > 160 Last administered on 05:50; Admin Dose 10 MG; Start 07/25/17 at 17:30 Aspirin (Aspirin) 81 mg DAILY GTB Last administered on 07/30/17 08:46; Admin Dose 81 MG; Start 07/25/17 at 18:24 Atorvastatin Calcium (Lipitor) 40 mg HS PO Last administered on 07/29/17 20: 28; Admin Dose 40 MG; Start 07/26/17 at 21:00 Folic Acid (Folic Acid) 1 mg DAILY PO Last administered on 07/30/17 08:47; Admin Dose 1 MG; Start 07/27/17 at 09:00 Isosorbide Dinitrate (Isordil) 10 mg TID PO Last administered on 07/30/17 08: 47; Admin Dose 10 MG; Start 07/26/17 at 13:00 Multivitamins Therapeutic (Theragran) 1 tab DAILY PO Last administered on 07/30 08:47; Admin Dose 1 TAB; Start 07/27/17 at 09:00 Thiamine HCl (Vitamin B1) 100 mg DAILY PO Last administered on 07/30/17 08:46 ; Admin Dose 100 MG; Start 07/27/17 at 09:00 Ferrous Sulfate (Feosol Liquid Cup) 300 mg BID NGT Last administered on 08:46; Admin Dose 300 MG; Start 07/27/17 at 09:00 Tramadol HCl (Ultram) 25 mg Q6H PRN PO PAIN Last administered on 07/30/17 03: 31; Admin Dose 25 MG; Start 07/27/17 at 18:00 Amlodipine Besylate (Norvasc) 5 mg BID PO Last administered on 07/30/17 08:47 ; Admin Dose 5 MG; Start 07/27/17 at 21:00 Famotidine (Pepcid) 20 mg BID PO Last administered on 07/30/17 08:47; Admin Dose 20 MG; Start 07/29/17 at 21:00 Losartan Potassium (Cozaar) 50 mg BID PO Last administered on 07/30/17 09:24 ; Admin Dose 50 MG; Start 07/30/17 at 09:00 JAMILA GARCÍA MD Jul 30, 2017 12:14
[2017-07-30] MEDS ORDERED: MAGNESIUM SULFATE 2 GM/50 ML 50 ML IVPB ONE (12:30)
[2017-07-30] MEDS ORDERED: POTASSIUM CHLORIDE 20 MEQ in DEXTROSE 5% 100 ML IVPB ONE (13:00)
--- NOTE | 2017-07-30 13:07 | PN ---
Date/Time of Note Date/Time of Note DATE: 07/30/17 TIME: 13:07 Assessment/Plan VTE Prophylaxis VTE Prophylaxis Intervention: SCD's Lines/Catheters IV Catheter Type (from Nrs): Saline Lock Urinary Cath still in place: Yes Reason Cath still needed: urinary retention Assessment/Plan Assessment/Plan Respiratory failure status post extubation Bradycardia, resolved Hypertension urgency/emergency Severe cardiomyopathy with ejection fraction 25% Acute decompensated systolic congestive heart failure Acute kidney injury History of GI bleed History of alcohol abuse and illicit drug - Blood pressure medications have been restarted, diuretics as per our nephrology colleagues -Bradycardia induced by resp distress > no profound recurrecne thereafter -d/c planning wtih po lasix Subjective 24 Hr Interval Summary Free Text/Dictation The patient with no compalaints Exam/Review of Systems Vital Signs Vitals Vital Signs Date Time Temp Pulse Resp B/P Pulse Ox O2 Delivery O2 Flow Rate FiO2 07/30/17 12:40 64 07/30/17 11:30 98.0 16 154/82 100 07/30/17 00:49 3.0 07/28/17 17:45 Room Air 07/27/17 11:55 30 Intake and Output 07/29/17 07/29/17 07/30/17 15:00 23:00 07:00 Intake Total 940 ml 900 ml Output Total 1100 ml 2500 ml Balance -160 ml -1600 ml Results Result Diagram: 07/30/1715 07/30/1715 Results 24 hrs Laboratory Tests Test 07/30/17 07:15 White Blood Count 6.7 Red Blood Count 4.35 L Hemoglobin 11.2 L Hematocrit 33.8 L Mean Corpuscular Volume 77.7 L Mean Corpuscular Hemoglobin 25.7 L Mean Corpuscular Hemoglobin Concent 33.1 Red Cell Distribution Width 24.3 H Platelet Count 215 Mean Platelet Volume 9.7 Neutrophils % 54.1 Lymphocytes % 25.1 Monocytes % 14.9 H Eosinophils % 5.2 Basophils % 0.6 Nucleated Red Blood Cells % 0.0 Neutrophils # 3.6 Lymphocytes # 1.7 Monocytes # 1.0 H Eosinophils # 0.4 Basophils # 0.0 Nucleated Red Blood Cells # 0.0 Sodium Level 134 L Potassium Level 3.4 L Chloride Level 97 Carbon Dioxide Level 27 Anion Gap 13 Blood Urea Nitrogen 10 Creatinine 1.15 Glucose Level 97 Calcium Level 9.5 Phosphorus Level 4.2 Magnesium Level 1.6 L Medications Medications Current Medications Acetaminophen (Tylenol Liquid) 650 mg Q6H PRN PO PAIN LEVEL 1-3 OR FEVER Last administered on 07/30/17 06:14; Admin Dose 650 MG; Start 07/25/17 at 12:00 Enoxaparin Sodium (Lovenox) 40 mg DAILY SC Last administered on 07/30/17 08: 45; Admin Dose 40 MG; Start 07/25/17 at 13:30 Hydralazine HCl (Apresoline) 10 mg Q4H PRN IV SBP > 160 Last administered on 05:50; Admin Dose 10 MG; Start 07/25/17 at 17:30 Aspirin (Aspirin) 81 mg DAILY GTB Last administered on 07/30/17 08:46; Admin Dose 81 MG; Start 07/25/17 at 18:24 Atorvastatin Calcium (Lipitor) 40 mg HS PO Last administered on 07/29/17 20: 28; Admin Dose 40 MG; Start 07/26/17 at 21:00 Folic Acid (Folic Acid) 1 mg DAILY PO Last administered on 07/30/17 08:47; Admin Dose 1 MG; Start 07/27/17 at 09:00 Isosorbide Dinitrate (Isordil) 10 mg TID PO Last administered on 07/30/17 12: 44; Admin Dose 10 MG; Start 07/26/17 at 13:00 Multivitamins Therapeutic (Theragran) 1 tab DAILY PO Last administered on 07/30 08:47; Admin Dose 1 TAB; Start 07/27/17 at 09:00 Thiamine HCl (Vitamin B1) 100 mg DAILY PO Last administered on 07/30/17 08:46 ; Admin Dose 100 MG; Start 07/27/17 at 09:00 Ferrous Sulfate (Feosol Liquid Cup) 300 mg BID NGT Last administered on 08:46; Admin Dose 300 MG; Start 07/27/17 at 09:00 Tramadol HCl (Ultram) 25 mg Q6H PRN PO PAIN Last administered on 07/30/17 03: 31; Admin Dose 25 MG; Start 07/27/17 at 18:00 Amlodipine Besylate (Norvasc) 5 mg BID PO Last administered on 07/30/17 08:47 ; Admin Dose 5 MG; Start 07/27/17 at 21:00 Famotidine (Pepcid) 20 mg BID PO Last administered on 07/30/17 08:47; Admin Dose 20 MG; Start 07/29/17 at 21:00 Losartan Potassium 50 mg 50 mg BID PO Last administered on 07/30/17 09:24; Admin Dose 50 MG; Start 07/30/17 at 09:00 Magnesium Sulfate 50 ml @ 25 mls/hr ONCE ONCE IVPB Last administered on 12:44; Admin Dose 25 MLS/HR; Start 07/30/17 at 12:30; Stop 07/30/17 at 14 :29 Potassium Chloride/Dextrose (KCl/D5W) 110 ml @ 55 mls/hr ONCE ONCE IVPB ; Start 07/30/17 at 13:00; Stop 07/30/17 at 14:59 JONATHAN AMBRIZ MD Jul 30, 2017 13:07
--- NOTE | 2017-07-30 13:17 | PN ---
Date/Time of Note Date/Time of Note DATE: 07/30/17 TIME: 13:03 Assessment/Plan VTE Prophylaxis VTE Prophylaxis Intervention: LMWH Lines/Catheters [facility] Saline Lock Urinary Cath still in place: Yes Assessment/Plan Assessment/Plan 62-year-old male with: 1. Episode of severe bradycardia: Per report patient has never lost his pulse. Patient had acute respiratory failure and bradycardia, etiology is likely primary respiratory. Currently sinus rhythm, stable from cardiac standpoint so far. Repeat 2D echocardiogram with ejection fraction unchanged at 25% D/c home with Home Health RN and follow up with PCP and Cardiology 2. S/p Acute respiratory failure, Likely that the patient went into CHF exacerbation and respiratory failure first probably. Euvolemic on chest x-ray 2 days. On RA Continue diuresis with Lasix po . 3. Severe cardiomyopathy, previous ejection fraction around 25%, patient was discharged on multiple medications for medical management. Unclear if his been compliant. According to his sister, patient has followed up with cardiology last week, according to the girlfriend, patient actually consumes raw salt which would be a major dietary indiscretion in his case. Patient to be discharged on Lasix 20 mg po daily with KCL Patient now euvolemic. 4. Acute kidney injury on chronic kidney disease, status post respiratory failure and cardiac arrest. Nephrology consult today with Dr. Bermeo. Renal function improved, will plan to DC D/c mohan catheter. Strict I's and O's, diuresis with Lasix low dose to go home. Appreciate recommendations from Dr Bermeo. 5. Hypertensive emergency, patient's blood pressure much better controlled. Continue Isosorbide, Norvasc and adding Cozaar back on for BP control Given the bradycardic episode on admission, per Cardiology will keep holding Bblocker off. 6. History of seizure disorder, patient has been off medications. No seizures. According to the sister last grand mal seizures was 2 years ago, patient was also consuming alcohol back then so unclear if it was primary epilepsy versus withdrawal. 7. History of alcohol abuse: patient again is swearing he is going to quit. 8. History of tobacco abuse: Patient has been counseled to quit tobacco and again is promising he is quitting. 9. Right knee pain, status post fall/syncope with episode of acute respiratory failure while at home, x-ray right knee within normal limits, pain and swelling resolved. Prophylaxis: Lovenox for DVT prophylaxis and Protonix for gastrointestinal prophylaxis. Disposition: Follow-up cardiology outpatient within 1 to 2 weeks Follow up with PCP within 1 week D/c home with home health RN. Subjective 24 Hr Interval Summary Free Text/Dictation Patient doing well x 2 days D/c Mohan catheter D/c home with Home health RN and appropriate follow ups Exam/Review of Systems Vital Signs Vitals Vital Signs Date Time Temp Pulse Resp B/P Pulse Ox O2 Delivery O2 Flow Rate FiO2 07/30/17 12:40 64 07/30/17 11:30 98.0 16 154/82 100 07/30/17 00:49 3.0 07/28/17 17:45 Room Air 07/27/17 11:55 30 Intake and Output 07/29/17 07/29/17 07/30/17 14:59 22:59 06:59 Intake Total 940 ml 900 ml Output Total 1100 ml 2500 ml Balance -160 ml -1600 ml Exam Constitutional: alert, oriented, well developed Respiratory: clear to auscultation, normal air movement Cardiovascular: nl pulses, regular rate and rhythm Gastrointestinal: non-tender, soft Musculoskeletal: nl extremities to inspection, nl gait and stance Extremities: normal pulses, other (no edema, clubbing or cyanosis ) Neurological: [employer] II-XII intact, nl mental status, nl speech, nl strength Results Result Diagram: 07/30/1771407/30/1715 Results 24 hrs Laboratory Tests Test 07/30/17 07:15 White Blood Count 6.7 Red Blood Count 4.35 L Hemoglobin 11.2 L Hematocrit 33.8 L Mean Corpuscular Volume 77.7 L Mean Corpuscular Hemoglobin 25.7 L Mean Corpuscular Hemoglobin Concent 33.1 Red Cell Distribution Width 24.3 H Platelet Count 215 Mean Platelet Volume 9.7 Neutrophils % 54.1 Lymphocytes % 25.1 Monocytes % 14.9 H Eosinophils % 5.2 Basophils % 0.6 Nucleated Red Blood Cells % 0.0 Neutrophils # 3.6 Lymphocytes # 1.7 Monocytes # 1.0 H Eosinophils # 0.4 Basophils # 0.0 Nucleated Red Blood Cells # 0.0 Sodium Level 134 L Potassium Level 3.4 L Chloride Level 97 Carbon Dioxide Level 27 Anion Gap 13 Blood Urea Nitrogen 10 Creatinine 1.15 Glucose Level 97 Calcium Level 9.5 Phosphorus Level 4.2 Magnesium Level 1.6 L Medications Medications Current Medications Acetaminophen (Tylenol Liquid) 650 mg Q6H PRN PO PAIN LEVEL 1-3 OR FEVER Last administered on 07/30/17 06:14; Admin Dose 650 MG; Start 07/25/17 at 12:00 Enoxaparin Sodium (Lovenox) 40 mg DAILY SC Last administered on 07/30/17 08: 45; Admin Dose 40 MG; Start 07/25/17 at 13:30 Hydralazine HCl (Apresoline) 10 mg Q4H PRN IV SBP > 160 Last administered on 05:50; Admin Dose 10 MG; Start 07/25/17 at 17:30 Aspirin (Aspirin) 81 mg DAILY GTB Last administered on 07/30/17 08:46; Admin Dose 81 MG; Start 07/25/17 at 18:24 Atorvastatin Calcium (Lipitor) 40 mg HS PO Last administered on 07/29/17 20: 28; Admin Dose 40 MG; Start 07/26/17 at 21:00 Folic Acid (Folic Acid) 1 mg DAILY PO Last administered on 07/30/17 08:47; Admin Dose 1 MG; Start 07/27/17 at 09:00 Isosorbide Dinitrate (Isordil) 10 mg TID PO Last administered on 07/30/17 12: 44; Admin Dose 10 MG; Start 07/26/17 at 13:00 Multivitamins Therapeutic (Theragran) 1 tab DAILY PO Last administered on 07/30 08:47; Admin Dose 1 TAB; Start 07/27/17 at 09:00 Thiamine HCl (Vitamin B1) 100 mg DAILY PO Last administered on 07/30/17 08:46 ; Admin Dose 100 MG; Start 07/27/17 at 09:00 Ferrous Sulfate (Feosol Liquid Cup) 300 mg BID NGT Last administered on 08:46; Admin Dose 300 MG; Start 07/27/17 at 09:00 Tramadol HCl (Ultram) 25 mg Q6H PRN PO PAIN Last administered on 07/30/17 03: 31; Admin Dose 25 MG; Start 07/27/17 at 18:00 Amlodipine Besylate (Norvasc) 5 mg BID PO Last administered on 07/30/17 08:47 ; Admin Dose 5 MG; Start 07/27/17 at 21:00 Famotidine (Pepcid) 20 mg BID PO Last administered on 07/30/17 08:47; Admin Dose 20 MG; Start 07/29/17 at 21:00 Losartan Potassium 50 mg 50 mg BID PO Last administered on 07/30/17 09:24; Admin Dose 50 MG; Start 07/30/17 at 09:00 Magnesium Sulfate 50 ml @ 25 mls/hr ONCE ONCE IVPB Last administered on 12:44; Admin Dose 25 MLS/HR; Start 07/30/17 at 12:30; Stop 07/30/17 at 14 :29 Potassium Chloride/Dextrose (KCl/D5W) 110 ml @ 55 mls/hr ONCE ONCE IVPB ; Start 07/30/17 at 13:00; Stop 07/30/17 at 14:59 ASHISH US Jul 30, 2017 13:13
--- NOTE | 2017-07-30 13:19 | PDOCDIS ---
Discharge Instructions CONDITION Patient Condition: Stable HOME CARE INSTRUCTIONS: Diet Instructions: Reduced Sodium ACTIVITY: Activity Restrictions: No Restrictions FOLLOW UP/APPOINTMENTS Follow-up Plan Follow up with PCP within 1 week Follow up with Cardiology within 1 to 2 weeks Home Health RN check ASHISH US Jul 30, 2017 13:19
[2017-07-30] MEDS ORDERED: LOSA50TA2 PO (13:23)
[2017-07-30] MEDS ORDERED: FURO20TA3 PO (13:23)
[2017-07-30] MEDS ORDERED: ISOS10TA2 PO (13:23)
[2017-07-30] MEDS ORDERED: POTA8CAP PO (13:23)
[2017-07-30] MEDS: ATORVASTATIN 40 MG TAB PO SCH (21:45)
[2017-07-31] VITALS (7 sets, daily range): BP systolic 149–192; BP diastolic 74–96; PULSE 68–70; RESP 16–20
[2017-07-31] MEDS: hydrALAzine 20 MG INJ IV PRN ×2 (01:27→05:42)
[2017-07-31] MEDS: traMADol 50 MG TAB PO PRN (04:38)
[2017-07-31] MEDS: FUROSEMIDE 20 MG INJ IV SCH (05:42)
[2017-07-31] MEDS: ACETAMINOPHEN 650MG/20.3ML CUP PO PRN (08:16)
[2017-07-31] MEDS: FERROUS SULFATE 60 MG/ML 5ML CUP NGT SCH (08:17)
[2017-07-31] MEDS: AMLODIPINE 5 MG TAB PO SCH (08:18)
[2017-07-31] MEDS: FOLIC ACID 1 MG TAB PO SCH (08:18)
[2017-07-31] MEDS: LOSARTAN 50 MG TAB PO SCH (08:18)
[2017-07-31] MEDS: THIAMINE 100 MG TAB PO SCH (08:18)
[2017-07-31] MEDS: MULTIVITAMINS THERAPEUTIC TAB PO SCH (08:18)
[2017-07-31] MEDS: ISOSORBIDE DINITRATE 10 MG TAB PO SCH (08:18)
[2017-07-31] MEDS: FAMOTIDINE 20 MG TAB PO SCH (08:19)
[2017-07-31] MEDS: ASPIRIN 81 MG TAB GTB SCH (08:19)
[2017-07-31] MEDS: ENOXAPARIN 40 MG/0.4 ML SYG SC SCH (08:23)
--- NOTE | 2017-07-31 09:50 | DS ---
Date/Time of Note Date/Time of Note DATE: 07/31/17 TIME: 09:45 Discharge Summary Admission/Discharge Info Admit Date/Time Jul 25, 2017 at 13:20 Discharge Date/Time Jul 31, 2017 Discharge Diagnosis Cardiac arrest, acute renal failure, respiratory failure Patient Condition: Good Consults David Martinez DO (Cardiology); Jeyson Crook MD (critical care); Andrew Bermeo MD (nephrology). Procedures Echocardiogram Brain CT Right knee x-rays Renal ultrasound Hx of Present Illness Mr. Bazan is a 62-year-old man with a history of cardiomyopathy (ejection fraction of approximately 25% to 30%), congestive heart failure, microcytic anemia, uncontrolled hypertension, current tobacco abuse, current alcohol and cocaine use, gastritis and gastric ulcers who was in his usual state of health until the date of admission when he started feeling confused and weak. He summoned 911, and suffered a bradycardic arrest en route. Hospital Course In the emergency department he was emergently intubated. His systolic blood pressure was approximately 200 and his heart rate did rebound. He was started on a Cardene drip, placed on propofol, and treated with 60 mg of intravenous Lasix as well as antibiotics. He was admitted to the intensive care unit for further evaluation and treatment. Initial troponin was 0.041, with B- natriuretic peptide of 25,400. His sodium was 134. Potassium was elevated at 5.5 and BUN and creatinine at 10 and 1.31. His hemoglobin was stable at 12.3 and platelet count 241,000, white count of 10.8. His urine was significant for negative leukocyte esterase, 26 white cells, moderate amorphous crystals, a few bacteria, a few mucus, 1+ hemoglobin, 3+ glucose and 3+ total protein. PT was 14.1 with an INR of 1.09 and PTT of 34.6. In the intensive care unit, the patient was stabilized with a blood pressure of 130/81. , pulse rate of 62, respiratory rate of 19 which is slightly over the ventilator. His oxygen saturation is 100%, and he appears comfortable. He was treated with incentive spirometry as needed, and started on several new anti-hypertensive agents. Echocardiogram 07/26/17 showed normal left ventricular cavity size with moderate concentric left ventricular hypertrophy. He had severe left ventricular systolic dysfunction, with an ejection fraction estimated at 25 %. Tissue Doppler/Mitral Doppler indices were consistent with impaired relaxation ( Stage I diastolic dysfunction). He had normal right ventricular size and systolic function. There was no significant valvular disease or evidence of pericardial abnormality. CT scan of the brain showed only small vessel disease and diffuse atrophy, but no acute changes. He complained of right knee pain related to a fall, and normal x-rays showed no fracture or malalignment. His renal ultrasound was normal, and he had good recovery of his renal function. Last night he had elevated systolic blood pressure, and complained of poor sleep overnight due to a headache. But this morning he felt much better, and was waiting for his niece to come pick him up. Home Meds Active Scripts Potassium Chloride* (Potassium Chloride*) 8 Meq Capsule.er, 8 MEQ PO DAILY, #30 CAP 3 Refills Prov:ASHISH US 07/30/17 Furosemide* (Furosemide*) 20 Mg Tablet, 20 MG PO DAILY for 30 Days, TAB 3 Refills Prov:ASHISH US 07/30/17 Losartan Potassium* (Cozaar*) 50 Mg Tablet, 50 MG PO BID for 30 Days, TAB 3 Refills Prov:ASHISH US 07/30/17 Isosorbide Dinitrate* (Isordil*) 10 Mg Tablet, 10 MG PO TID for 30 Days, TAB 3 Refills Prov:ASHISH US 07/30/17 [Thiamine] 100 MG TAB No Conflict Check, 100 MG PO DAILY for 30 Days, 3 Refills Prov:ASHISH US 06/30/17 Multivitamins* (Theragran*) 1 Tab Tab, 1 TAB PO DAILY for 30 Days, TAB 3 Refills Prov:ASHISH US 06/30/17 Folic Acid* (Folic Acid*) 1 Mg Tablet, 1 MG PO DAILY for 30 Days, TAB 3 Refills Prov:ASHISH US 06/30/17 Pantoprazole* (Pantoprazole*) 40 Mg Tablet.dr, 40 MG PO BID@18 for 30 Days, 3 Refills Prov:ASHISH US 06/30/17 Atorvastatin* (Atorvastatin*) 40 Mg Tablet, 40 MG PO HS for 30 Days, TAB 3 Refills Prov:ASHISH US 10/18/17 Ferrous Sulfate* (Ferrous Sulfate*) 325 Mg Tabec, 325 MG PO BID for 30 Days, TAB 3 Refills Prov:ASHISH US 06/30/17 Discontinued Scripts Sucralfate (Carafate) 1 Gm Tablet, 1 GM PO Q6 for 30 Days, TAB 3 Refills Prov:ASHISH US 06/30/17 Furosemide* (Furosemide*) 40 Mg Tablet, 40 MG PO DAILY for 30 Days, TAB 3 Refills Prov:ASHISH US 06/30/17 Spironolactone* (Aldactone*) 25 Mg Tablet, 25 MG PO DAILY for 30 Days, TAB 3 Refills Prov:ASHISH US 06/30/17 Carvedilol* (Carvedilol*) 12.5 Mg Tablet, 12.5 MG PO BID for 30 Days, TAB 3 Refills Prov:ASHISH US 06/30/17 [Nicotine (14 Mg/24 Hr)] 1 PATCH PATCH No Conflict Check, 1 PATCH TRANSDERM DAILY for 30 Days Prov:ASHISH US 06/30/17 Follow-up Plan Follow up with PCP within 1 week Follow up with Cardiology within 1 to 2 weeks Home Health RN check Primary Care Provider Mj Mccarty Time spent on discharge: > 30 minutes KENIA GOMEZ M.D. Jul 31, 2017 09:50
== END 2017-07-31 10:46 | disposition home or self-care (01) | DRG 208 ==
LOC: E/R 07:15 → ICU 13:20 → MS4 07-28 17:12
PROVIDERS: ADMIT Internal Medicine; ATTEND Internal Medicine
PROC: 0BH17EZ Insertion of Endotracheal Airway into Trachea, Via Natural or Artificial Opening (ICD-10-PCS; principal; 2017-07-25)
PROC: 5A1945Z Respiratory Ventilation, 24-96 Consecutive Hours (ICD-10-PCS; 2017-07-25)
DX: J96.01 Acute respiratory failure with hypoxia (principal); I46.9 Cardiac arrest, cause unspecified; I50.23 Acute on chronic systolic (congestive) heart failure; G93.41 Metabolic encephalopathy; I13.0 Hypertensive heart and chronic kidney disease with heart failure and stage 1 through stage 4 chronic kidney disease, or unspecified chronic kidney disease; N17.9 Acute kidney failure, unspecified; I16.1 Hypertensive emergency; I42.9 Cardiomyopathy, unspecified; N18.9 Chronic kidney disease, unspecified; R00.1 Bradycardia, unspecified; F17.200 Nicotine dependence, unspecified, uncomplicated; M25.561 Pain in right knee
CPT/HCPCS: 31500; 36600; 70450; 71010; 73562; 76775; 80048; 80053; 80307; 81001; 81003; 82550; 82570; 82803; 83036; 83735; 83880; 84100; 84300; 84484; 84560; 85025; 85610; 85730; 87040; 87075; 87081; 89190; 90686; 92526; 92610; 93005; 93306; 94002; 94003; 94770; 96374; 96375; 97162; J1940; J0360; J0456; J0696; J1650; J2001; J3010; J3370; J3475; J3480; J7040; P9047

== ENCOUNTER 2017-09-03 13:43 | Emergency (ER) | payer OTHER ==
[~2017-09-03] VITALS: Wt 104.0 kg
[~2017-09-03 13:43] MED LIST changes: -CARV12.579 PO; +FURO20TA3 PO; -FURO40TA4 PO; -LIDOCAINE 100 MG SYRINGE ONE; -Nicotine (14 Mg/24 Hr) TRANSDERM; +POTA8CAP PO; -SPIR25TA PO; -SUCCINYLCHOLINE CHLORIDE 100 MG/5 ML SYG IV ONE; -SUCR1TAB27 PO
--- NOTE | 2017-09-03 13:52 | ERD ---
ER Documentation Chief Complaint Chief Complaint HPI 62-year-old man with multiple medical conditions including cardiomyopathy and depressed ventricular function presents with shortness of breath, cough, chest congestion, nasal congestion, and body aches 2 days. He also felt dizzy and felt like he wanted to faint today but denies loss of consciousness. Patient denies sore throat, no chest pain or palpitations, no fevers or chills, no vomiting, no diarrhea, no blood per rectum, no headache or blurry vision. Patient was transported here by EMS without further complications. ROS All systems reviewed and are negative except as per history of present illness. Medications Home Meds Active Scripts Potassium Chloride* (Potassium Chloride*) 8 Meq Capsule.er, 8 MEQ PO DAILY, #30 CAP 3 Refills Prov:MAGENASHISH 07/30/17 Furosemide* (Furosemide*) 20 Mg Tablet, 20 MG PO DAILY for 30 Days, TAB 3 Refills Prov:MAGENASHISH 07/30/17 Losartan Potassium* (Cozaar*) 50 Mg Tablet, 50 MG PO BID for 30 Days, TAB 3 Refills Prov:MAGENASHISH 07/30/17 Isosorbide Dinitrate* (Isordil*) 10 Mg Tablet, 10 MG PO TID for 30 Days, TAB 3 Refills Prov:ASHISH US 07/30/17 [Thiamine] 100 MG TAB No Conflict Check, 100 MG PO DAILY for 30 Days, 3 Refills Prov:ASHISH SU 06/30/17 Multivitamins* (Theragran*) 1 Tab Tab, 1 TAB PO DAILY for 30 Days, TAB 3 Refills Prov:MAGENASHISH 06/30/17 Folic Acid* (Folic Acid*) 1 Mg Tablet, 1 MG PO DAILY for 30 Days, TAB 3 Refills Prov:ASHISH US 06/30/17 Pantoprazole* (Pantoprazole*) 40 Mg Tablet.dr, 40 MG PO BID@ for 30 Days, 3 Refills Prov:MAGENASHISH 06/30/17 Atorvastatin* (Atorvastatin*) 40 Mg Tablet, 40 MG PO HS for 30 Days, TAB 3 Refills Prov:MAGEN,ASHISH 06/30/17 Ferrous Sulfate* (Ferrous Sulfate*) 325 Mg Tabec, 325 MG PO BID for 30 Days, TAB 3 Refills Prov:ASHISH US 06/30/17 Allergies Allergies: Coded Allergies: No Known Allergy (Unverified , 09/03/17) PMhx/Soc Recent cardiac arrest, renal failure, cardiomyopathy with a left ventricular ejection fraction of 25%, congestive heart failure, anemia, hypertension, current alcohol and cocaine abuse, gastritis with gastric ulcers History of Surgery: No Hx Neurological Disorder: Yes (SEIZURES) Hx Respiratory Disorders: Yes (RESP. FAILURE) Hx Cardiac Disorders: Yes (CHF, HTN, S/P CARDIAC ARREST) Hx Miscellaneous Medical Probl: Yes (see note) Hx Alcohol Use: No Hx Substance Use: No Hx Tobacco Use: Yes FmHx Family History: No diabetes Physical Exam Vitals Vital Signs Date Time Temp Pulse Resp B/P Pulse Ox O2 Delivery O2 Flow Rate FiO2 09/03/17 14:01 98.9 69 18 179/82 98 Physical Exam GENERAL: Well-developed, well-nourished,, afebrile HEENT: Dry mucous membranes, pink conjunctiva, no cervical spine tenderness or step-off deformities, no goiter, no jaundice or icterus, extraocular movements intact without pain. No submandibular induration, and no pharyngeal erythema NEURO: Alert and oriented 3, cranial nerves II through XII intact bilaterally, pupils equal round reactive to light, no focal deficits or facial asymmetry, sensation intact distally Strength 5/5 in upper and lower extremities bilaterally CARDIAC: Regular rate and rhythm, no murmurs rubs or gallops LUNGS: Clear bilaterally no wheezing crackles or stridor ABDOMEN: Soft nontender, no guarding, no rigidity, no rebound, no psoas sign no obturator sign. Normoactive bowel sounds SKIN: Warm and dry to touch, no abrasions, contusions, or hematomas, no lacerations, no ecchymosis, no target lesions, and without ulcers EXTREMITIES: No clubbing cyanosis or edema, calves are bilaterally symmetrical, no Homans sign, no popliteal cord sign. Distal pulses equal and bilateral PSYCH: Normal affect without agitation or irritability Result Diagram: 09/03/17 1425 09/03/17 1520 Results 24 hrs Laboratory Tests Test 09/03/17 14:25 09/03/17 15:20 White Blood Count 9.410^3/ul Red Blood Count 4.3410^6/ul Hemoglobin 11.7g/dl Hematocrit 35.6% Mean Corpuscular Volume 82.0fl Mean Corpuscular Hemoglobin 27.0pg Mean Corpuscular Hemoglobin Concent 32.9g/dl Red Cell Distribution Width 18.4% Platelet Count 81013^3/UL Mean Platelet Volume 9.6fl Neutrophils % 75.3% Lymphocytes % 8.5% Monocytes % 15.2% Eosinophils % 0.3% Basophils % 0.3% Nucleated Red Blood Cells % 0.0/100WBC Neutrophils # 7.010^3/ul Lymphocytes # 0.810^3/ul Monocytes # 1.410^3/ul Eosinophils # 0.010^3/ul Basophils # 0.010^3/ul Nucleated Red Blood Cells # 0.010^3/ul Sodium Level 124mmol/L Potassium Level 4.9mmol/L Chloride Level 91mmol/L Carbon Dioxide Level 21mmol/L Anion Gap 17 Blood Urea Nitrogen 16mg/dl Creatinine 1.86mg/dl Glucose Level 116mg/dl Calcium Level 8.9mg/dl Total Bilirubin 0.0mg/dl Direct Bilirubin 0.00mg/dl Indirect Bilirubin 0.0mg/dl Aspartate Amino Transf (AST/SGOT) 53IU/L Alanine Aminotransferase (ALT/SGPT) 38IU/L Alkaline Phosphatase 67IU/L Troponin I 0.028ng/ml B-Type Natriuretic Peptide 2790PG/ML Total Protein 7.8g/dl Albumin 3.9g/dl Globulin 3.90g/dl Albumin/Globulin Ratio 1.00 Lipase 103U/L Current Medications Medications (Trade) Dose Ordered Sig/Renee Route PRN Reason Start Time Stop Time Status Last Admin Dose Admin Ibuprofen (Motrin) 600 mg ONCE ONCE PO 09/03/17 14:30 09/03/17 14:31 DC 09/03/17 14:25 Oseltamivir Phosphate (Tamiflu) 75 mg ONCE ONCE PO 09/03/17 16:30 09/03/17 16:31 DC Procedures/MDM IV line was established patient was placed on site monitor rhythm strip revealed a sinus rhythm at about 70 bpm with upright P and T waves. Patient was afebrile EKG performed, read by me revealed a normal sinus rhythm at 70 bpm, normal axis , right ventricular conduction delay QRS duration of 108 ms, LVH with diffuse T- wave inversions. No ST elevations noted. EKG changes are chronic. Chest X-ray 1V Interpreted by me: Soft Tissue: No acute abnormalities Bones: No acute abnormalities Mediastinum/Cardiac Silhouette/Lungs: No acute abnormalities I administered ibuprofen 600 mg p.o. for his symptoms. CBC is unremarkable, electrolytes revealed kidney injury with a creatinine of 1.9, liver function tests were normal, BNP is elevated although this does not correlate with his current condition or his chest x-ray findings. Troponin negative. Influenza A was positive influenza B swab negative. I treated the patient here with Tamiflu 75 mg p.o. 1. Patient had a near syncopal episode today and has multiple serious underlying medical conditions, he will be admitted to telemetry setting for near syncope. I spoke to his health insurance directed covering physician who agreed to admission and transfer to his [facility], [facility]. Departure Diagnosis: Primary Impression: Acute kidney injury Additional Impressions: Influenza A H1N1 infection Dizziness Condition: Fair JULIET ANDRADE MD Sep 03, 2017 13:52
[2017-09-03] MEDS ORDERED: IBUPROFEN 600 MG TAB PO ONE (14:30)
--- NOTE | 2017-09-03 14:42 | RADRPT ---
PROCEDURE: Chest x-ray CLINICAL INDICATION: Abdominal pain TECHNIQUE: Chest single view COMPARISON: 07/28/2017 FINDINGS: The heart is normal in size. The pulmonary vessels are normal in caliber. The lungs are clear. Th e costophrenic angles are sharp. The visualized bony thorax is unremarkable. IMPRESSION: No acute cardiopulmonary disease. There is stable atherosclerotic aortic calcification RPTAT: HH .Jeffery Mayorga MD, MD Date Time Electronically viewed and signed by .Jeffery Mayorga MD, on 09/03/2017 14:41 .W/
[2017-09-03 14:45] LABS: BASOPHILS % 0.3 % (0.0-2.0); EOSINOPHILS % 0.3 % (0.0-7.0); HEMATOCRIT 35.6 % (42.0-52.0); HEMOGLOBIN 11.7 g/dl (14.0-18.0); LYMPHOCYTES # 0.8 10^3/ul (0.8-2.9); LYMPHOCYTES % 8.5 % (15.0-51.0); MEAN CORPUSCULAR HGB CONC 32.9 g/dl (32.0-37.0); MEAN PLATELET VOLUME 9.6 fl (7.4-10.4); MONOCYTE # 1.4 10^3/ul (0.3-0.9); MONOCYTES % 15.2 % (0.0-11.0); NEUTROPHILS % 75.3 % (39.0-77.0); PLATELET COUNT 222 10^3/UL (140-415); RED BLOOD COUNT 4.34 10^6/ul (4.70-6.10); RED CELL DISTRIBUTION WIDTH 18.4 % (11.5-14.5); WHITE BLOOD COUNT 9.4 10^3/ul (4.8-10.8)
[2017-09-03 15:58] LABS: ALBUMIN 3.9 g/dl (3.3-4.9); CALCIUM 8.9 mg/dl (8.4-10.2); CREATININE 1.86 mg/dl (0.61-1.24); POTASSIUM 4.9 mmol/L (3.5-5.1); TOTAL PROTEIN 7.8 g/dl (6.1-8.1)
[2017-09-03 16:10] LABS: TROPONIN-I 0.028 ng/ml (0.00-0.12)
[2017-09-03] MEDS ORDERED: OSELTAMIVIR 75 MG CAP PO ONE (16:30)
[2017-09-03 20:48] VITALS: BP 138/63; PULSE 88; RESP 18; TEMP 99.1
== END 2017-09-03 20:51 | disposition short-term general hospital (02) ==
LOC: E/R 13:43
DX: N17.9 Acute kidney failure, unspecified (principal); J10.1 Influenza due to other identified influenza virus with other respiratory manifestations; R42 Dizziness and giddiness; I50.9 Heart failure, unspecified; I10 Essential (primary) hypertension; Z87.891 Personal history of nicotine dependence
CPT/HCPCS: 36415; 71010; 80053; 83690; 83880; 84484; 85025; 87400; Z7502; Z7610; 93005

== ENCOUNTER 2017-11-16 22:10 | Inpatient (IN) | END 2017-11-17 20:43 | disposition short-term general hospital (02) | DRG 313 ==